=== PATIENT | male | born 1945 | race Two or more races ===

== ENCOUNTER → 2020-04-23 | Outpatient (BNVA) | payer MEDICARE, SELFPAY | PROVIDERS: PCP Internal Medicine; Visit Provider Internal Medicine Cardiovascular Disease | DX: Z01.810 Encounter for preprocedural cardiovascular examination (principal); I25.10 Atherosclerotic heart disease of native coronary artery without angina pectoris; Z79.02 Long term (current) use of antithrombotics/antiplatelets; Z79.82 Long term (current) use of aspirin | CPT/HCPCS: 93000; 93005; 99204 ==

== ENCOUNTER 2020-05-14 15:22 | Emergency (ER) | payer MEDICARE, SELFPAY ==
[2020-05-14 15:45] VITALS: BP 154/74; PULSE 63; RESP 18; TEMP 36.8; O2SAT 94; BMI 22.8
--- NOTE | 2020-05-14 16:17 | ED.GENADULT ---
HPI - General Adult General Chief complaint: General Medical Stated complaint: bleeding from neck Time Seen by Provider: 05/14/20 16:17 Source: patient and family Mode of arrival: ambulatory Limitations: no limitations History of Present Illness HPI narrative: pt had right submandibular gland surgery at [facility] earlier today came here because started oozing at the surgical wound just prior to arrival Related Data Home Medications Medication Instructions Recorded Confirmed aspirin 81 mg tablet,delayed 81 mg PO DAILY 04/23/20 release atorvastatin 80 mg tablet 80 mg PO DAILY 04/23/20 gabapentin 300 mg capsule 300 mg PO DAILY 04/23/20 lisinopril 40 mg tablet 40 mg PO DAILY 04/23/20 metoprolol tartrate 25 mg tablet 12.5 mg PO BID 04/23/20 omeprazole 20 mg capsule,delayed 0 mg PO 04/23/20 release paroxetine HCl 10 mg tablet 10 mg PO DAILY 04/23/20 Previous Rx's Medication Instructions Recorded glycopyrrolate 1 mg tablet 1 mg PO DAILY #30 tab 04/28/20 ibuprofen 600 mg tablet 600 mg PO TID PRN #30 tab 04/28/20 clopidogrel 75 mg tablet 75 mg PO DAILY #90 tab 05/01/20 Allergies Allergy/AdvReac Type Severity Reaction Status Date / Time amlodipine Allergy Unknown Verified 03/10/20 00:00 famotidine Allergy Unknown Verified 03/10/20 00:00 lactose [LACTOSE] Allergy Unknown DIARRHEA Unverified 03/26/20 14:55 metoprolol Allergy Unknown Verified 03/10/20 00:00 Review of Systems Review of Systems: Yes all other systems are reviewed and are negative [facility] Past Medical History Medical History Coronary artery disease Surgical History H/O colonoscopy H/O colonoscopy H/O hernia repair History of coronary artery stent placement History of esophagogastroduodenoscopy (EGD) Hx laparoscopic cholecystectomy Social History Social History Advance Directives: No Advance Directives Information Provided: No Physical Exam Vital Signs: Vital Signs: Last Vital Signs Temp 98.2 F 05/14/20 15:45 Pulse 63 05/14/20 15:45 Resp 18 05/14/20 15:45 BP 154/74 H 05/14/20 15:45 Pulse Ox 94 05/14/20 15:45 Body Mass Index 22.8 Appearance: Alert. Oriented X3. No acute distress. Neck: slight oozing from surgical wound otherwise wound is closed CVS: Normal heart rate and rhythm. Pulses normal. Respiratory: No respiratory distress. Breath sounds normal. Abdomen: Soft and nontender. Skin: Skin warm and dry. Normal skin color. Normal skin turgor. Extremities: No lower extremity edema. Good range of movement Neuro: Oriented X 3. No motor deficit. No sensory deficit. Course Course Course Narrative: 4 interrupted sutures were placed at the oozing surgical wound stop the bleeding which stopped part dressed patient advised to follow-up with his surgeon Procedures Laceration Laceration 1: Site: neck Side (If applicable): right Size (cm): 1 Description: linear Depth: simple, single layer Local Anesthetic: lidocaine 2% Amount of anesthesia used (mL): 1 Skin layer closed with: vicryl Size (cm): 5-0 Number of sutures: 4 Technique: simple, interrupted Discharge Plan Discharge Prescriptions: No Action glycopyrrolate 1 mg tablet 1 mg PO DAILY Qty: 30 RF: 1 ibuprofen 600 mg tablet 600 mg PO TID PRN (Reason: fever or pain) Qty: 30 RF: 0 clopidogrel 75 mg tablet 75 mg PO DAILY Qty: 90 RF: 2 aspirin 81 mg tablet,delayed release (DR/EC) 81 mg PO DAILY RF: 0 omeprazole 20 mg capsule,delayed release(DR/EC) 0 mg PO RF: 0 paroxetine HCl 10 mg tablet 10 mg PO DAILY RF: 0 gabapentin 300 mg capsule 300 mg PO DAILY RF: 0 lisinopril 40 mg tablet 40 mg PO DAILY RF: 0 atorvastatin 80 mg tablet 80 mg PO DAILY RF: 0 metoprolol tartrate 25 mg tablet 12.5 mg PO BID RF: 0
[2020-05-14] MEDS: Lidocaine HCl 2 % MPF 5 ML VIAL INFILTRATI (16:49)
== END 2020-05-14 17:08 | disposition home or self-care (01) ==
PROVIDERS: Emergency Provider Internal Medicine; PCP Internal Medicine
DX: K91.841 Postprocedural hemorrhage of a digestive system organ or structure following other procedure (principal); S11.91XA Laceration without foreign body of unspecified part of neck, initial encounter; M54.2 Cervicalgia; W45.8XXA Other foreign body or object entering through skin, initial encounter; Y93.9 Activity, unspecified; Y92.9 Unspecified place or not applicable; Y99.9 Unspecified external cause status; Z79.899 Other long term (current) drug therapy
CPT/HCPCS: 12001; 99282; 99284

== ENCOUNTER 2020-05-14 23:45 | Emergency (ER) | payer MEDICARE, SELFPAY ==
[2020-05-15 02:05] VITALS: BP 149/71; PULSE 55; RESP 16; TEMP 36.8; O2SAT 98; BMI 23.0
--- NOTE | 2020-05-15 03:29 | ED.MALEGU ---
HPI - Male Genitourinary General Chief complaint: Urogenital-Male Stated complaint: Unable to void Time Seen by Provider: 05/15/20 02:23 Source: patient Mode of arrival: ambulatory Limitations: no limitations History of Present Illness HPI Narrative: This is a 75-year-old male who presents with inability to urinate for approximately 8 hours and states that he has not had any changes in medication dosages or new medications, but states that he underwent a surgical procedure earlier today and received anesthesia for this procedure. Otherwise, he denies any fevers, chills, nausea, vomiting, GI symptoms. Related Data Home Medications Medication Instructions Recorded Confirmed aspirin 81 mg tablet,delayed 81 mg PO DAILY 04/23/20 release atorvastatin 80 mg tablet 80 mg PO DAILY 04/23/20 gabapentin 300 mg capsule 300 mg PO DAILY 04/23/20 lisinopril 40 mg tablet 40 mg PO DAILY 04/23/20 metoprolol tartrate 25 mg tablet 12.5 mg PO BID 04/23/20 omeprazole 20 mg capsule,delayed 0 mg PO 04/23/20 release paroxetine HCl 10 mg tablet 10 mg PO DAILY 04/23/20 Previous Rx's Medication Instructions Recorded glycopyrrolate 1 mg tablet 1 mg PO DAILY #30 tab 04/28/20 ibuprofen 600 mg tablet 600 mg PO TID PRN #30 tab 04/28/20 clopidogrel 75 mg tablet 75 mg PO DAILY #90 tab 05/01/20 Allergies Allergy/AdvReac Type Severity Reaction Status Date / Time amlodipine Allergy Unknown Verified 03/10/20 00:00 famotidine Allergy Unknown Verified 03/10/20 00:00 lactose [LACTOSE] Allergy Unknown DIARRHEA Unverified 03/26/20 14:55 metoprolol Allergy Unknown Verified 03/10/20 00:00 Review of Systems Review of Systems: Pertinent positives and negatives as stated in HPI 10 point review of systems is otherwise negative. [facility] Past Medical History Source: nursing notes reviewed Medical History Coronary artery disease Surgical History H/O colonoscopy H/O colonoscopy H/O hernia repair History of coronary artery stent placement History of esophagogastroduodenoscopy (EGD) Hx laparoscopic cholecystectomy Social History Social History Alcohol intake: never Smoking Status: Never smoker Use of substances other than those prescribed or required for medical reasons: No Advance Directives: No Advance Directives Information Provided: No Physical Exam Vital Signs: Vital Signs: Last Vital Signs Temp 98.3 F 05/15/20 02:05 Pulse 55 05/15/20 02:05 Resp 16 05/15/20 02:05 BP 149/71 H 05/15/20 02:05 Pulse Ox 98 05/15/20 02:05 Body Mass Index 23.0 VITAL SIGNS: Reviewed. GENERAL: Well developed, well nourished, in no acute distress. HEAD: Normocephalic/atraumatic, EYES: PERRLA, EOMI intact without pain, no nystagmus/pallor/icterus noted EARS: Ext canals without abnormality, TMs non-bulging and non-erythematous NOSE: Nares patent bilateral OROPHARYNX: no oral lesions noted, posterior pharynx clear and non-erythematous without noted tonsillar enlargement/erythema/exudates NECK: Supple, no adenopathy LUNGS: Normal breath sounds. No adventitious sounds or accessory muscle use. SpO2<98> CARDIOVASCULAR: Regular rate and rhythm without noted murmurs, no JVD or lower extremity edema. ABDOMEN: Soft, non-tender, non-distended with bowel sounds. No rigidity. No guarding. No palpable masses or hernias noted MUSCULOSKELETAL: No tenderness, deformities, or effusions noted on gross inspection. EXTREMITIES: No cyanosis, clubbing or edema. SKIN: Inspection of the skin reveals no rashes, ulcerations, jaundice, pallor, or petechiae. NEUROLOGIC: Alert and oriented x 4. Strength and sensation to light touch were grossly intact x 4. Course Course Course Narrative: This is a 75-year-old male with history and clinical presentation consistent with likely anesthesia induced urinary retention and discussed with the patient at length at bedside regarding a single catheterization to remove the urine and check for infection versus placing a Wynne catheter and having him follow-up with urology. Patient states that he prefers to have a single draining of his bladder and feels confident that he will be able to regain the ability to urinate within the next day. Bladder scan demonstrates more than 800 cc within the bladder and patient was straight cathed and a urinalysis was obtained. Discharge Plan Discharge Clinical Impression: Acute urinary retention Patient Disposition: Home, Self-Care Instructions: Urinary Retention in Men (ED) Additional Instructions: Hoy se le evalu? la retenci?n urinaria en el departamento de emergencias y se considera que esto es secundario a los anest?sicos que recibi? al principio del d?a para montalvo procedimiento. Discutimos en detalle las opciones para juana ?raul extracci?n de orina o la colocaci?n de un cat?ter de Wynne con seguimiento con Urolog?a. Usted eligi? tener un solo episodio de extracci?n de orina y se le alberto indicado que alireza un seguimiento con nosotros si esto ocurre dentro de las pr?ximas 24 horas o si tiene fiebre o escalofr?os. Prescriptions: No Action glycopyrrolate 1 mg tablet 1 mg PO DAILY Qty: 30 RF: 1 ibuprofen 600 mg tablet 600 mg PO TID PRN (Reason: fever or pain) Qty: 30 RF: 0 clopidogrel 75 mg tablet 75 mg PO DAILY Qty: 90 RF: 2 aspirin 81 mg tablet,delayed release (DR/EC) 81 mg PO DAILY RF: 0 omeprazole 20 mg capsule,delayed release(DR/EC) 0 mg PO RF: 0 paroxetine HCl 10 mg tablet 10 mg PO DAILY RF: 0 gabapentin 300 mg capsule 300 mg PO DAILY RF: 0 lisinopril 40 mg tablet 40 mg PO DAILY RF: 0 atorvastatin 80 mg tablet 80 mg PO DAILY RF: 0 metoprolol tartrate 25 mg tablet 12.5 mg PO BID RF: 0 Referrals: Po,Chemo Bonilla MD [Primary Care Provider] - 2 days ( Acute urinary retention felt to be secondary to anesthetics received during surgical procedure today 05/14) Print Language: Ukrainian
== END 2020-05-15 03:58 | disposition home or self-care (01) ==
PROVIDERS: Emergency Provider Student in an Organized Health Care Education/Training Program; PCP Internal Medicine
DX: R33.9 Retention of urine, unspecified (principal); Z79.899 Other long term (current) drug therapy
CPT/HCPCS: 51798; 99283; 99284

== ENCOUNTER 2020-05-28 09:12 | Outpatient (REF) | payer MEDICARE, SELFPAY | END 2020-05-28 09:13 | disposition home or self-care (01) | LOC: HO.LAB 09:12 | PROVIDERS: PCP Internal Medicine; Visit Provider Internal Medicine | DX: Z20.828 Contact with and (suspected) exposure to other viral communicable diseases (principal) | CPT/HCPCS: C9803; U0003 ==

== ENCOUNTER 2020-06-16 10:50 | Emergency (ER) | payer MEDICARE, SELFPAY ==
[2020-06-16 11:11] VITALS: BP 149/56; PULSE 63; RESP 16; TEMP 37.2; O2SAT 98; BMI 21.5
--- NOTE | 2020-06-16 11:20 | CT_ITS ---
EXAMINATION: CT SOFT TISSUE NECK WITH CONTRAST CLINICAL INFORMATION: Feeling of mass in throat. Difficulty swallowing. COMPARISON: No relevant prior imaging. TECHNIQUE: Following the intravenous administration of 60 mL of Omnipaque 350 intravenous contrast, helical imaging was performed in the axial plane with generation of coronal and sagittal reformatted images. This CT examination was performed using dose optimization techniques as appropriate, variously including the following: *Automated exposure control *Adjustment of mA and/or kV according to patient size (this includes techniques or standardized protocols for targeted exams where dose is matched to indication/reason for exam; i.e. extremities or head) *Use of iterative reconstruction technique DLP: 461 mGy-cm FINDINGS: The right submandibular gland is absent suggesting a history of a surgical resection. Subtle asymmetric fatty changes within the right parotid gland. The left parotid gland and the left submandibular gland are unremarkable. Traveling Storekeeper spaces are symmetric. Parapharyngeal and retromaxillary fat is preserved. The pharyngeal mucosal spaces are symmetric. The tongue base and epiglottis are normal. Preepiglottic fat is preserved. Glottic and subglottic airways are grossly patent. The thyroid gland is normal and the remainder of the visualized visceral soft tissues are normal. There are no pathologically enlarged cervical lymph nodes. No mediastinal or axillary adenopathy is visualized within the [id number] of this examination. There is pleural-parenchymal scarring at the apices of both lungs. Scattered atheromatous calcification involves the aortic arch apex. Origins of the major aortic branches are grossly patent. Partially calcified atheromatous plaque involves both carotid bifurcations. Although this examination was not specifically tailored to evaluate vascular anatomy there is approximately 25% stenosis at the origins of both internal carotid arteries. Internal jugular veins fill symmetrically. There is no acute osseous finding. Specifically no worrisome lytic or blastic osseous lesion. Grossly no evidence of canal compromise. The skull base is intact. Limited visualization of the posterior fossa structures reveals hyperenhancing 1.7 cm cerebellopontine angle cistern mass on the right side that coincides with the known history of a vestibular schwannoma. CT/CT soft tissue neck w con IMPRESSION: There is no abnormal finding to provide an explanation for the patient's clinical symptoms. Specifically no discrete enhancing soft tissue mass. No pathologically enlarged cervical lymph nodes. The laryngeal anatomy is somewhat limited on this examination due to patient motion at the time of imaging. There is partially calcified atheromatous plaque involving both carotid bifurcations. Although this examination was not specifically tailored to evaluate vascular anatomy there appears to be 25% stenosis at the origins of both internal carotid arteries. A known right-sided vestibular schwannoma is partially included within the [id number] of this examination.
--- NOTE | 2020-06-16 11:20 | CT_ITS ---
EXAMINATION: CT HEAD WITHOUT CONTRAST CLINICAL INFORMATION: Cannot swallow for one month. COMPARISON: MRI and CT from 11/21/2019. TECHNIQUE: Contiguous axial imaging was performed from the skull base to vertex without intravenous contrast. This CT examination was performed using dose optimization techniques as appropriate, variously including the following: * Automated exposure control * Adjustment of mA and/or kV according to patient size (this includes techniques or standardized protocols for targeted exams where dose is matched to indication/reason for exam; i.e. extremities or head) Use of iterative reconstruction technique DLP: 782 mGy-cm. FINDINGS: There is no evidence of acute intracranial hemorrhage or territorial infarction. No abnormal mass effect or midline shift is seen. Faustin to white matter differentiation is well preserved. No extra-axial fluid collections are identified. No hydrocephalus. Proportional prominence of the ventricles and sulcal spaces is consistent with mild volume loss. Redemonstration of the mass at the right cerebellopontine angle. This is unchanged in appearance from prior. The osseous structures and soft tissues are normal. The mastoid air cells and visualized portions of the paranasal sinuses are well aerated. CT/CT head/brain wo con IMPRESSION: No acute intracranial pathology. Unchanged appearance of the mass at the right cerebellopontine angle.
--- NOTE | 2020-06-16 11:28 | ED.GENADULT ---
HPI - General Adult General Chief complaint: Weakness Stated complaint: weak and nausea Time Seen by Provider: 06/16/20 11:20 Source: patient and old records reviewed Mode of arrival: ambulatory Limitations: no limitations History of Present Illness HPI narrative: states he underwent R submandibular salivary gland removal in May for excessive salivation states the procedure didn't help, he was referred to [place] but doesn't want to go, came here for second opinion - I did tell him we would do not have specialists to treat his issue here but will do our best to obtain images and hydrate him. MD complaint: states he cannot eat and not swallow well, too much saliva Onset (ago): month(s) (1) Location: mouth Radiation: non-radiation Severity: moderate Quality: dull Relieving factors: none Exacerbating factors: other (swallowing) Associated symptoms: loss of appetite and malaise Related Data Home Medications Medication Instructions Recorded Confirmed aspirin 81 mg tablet,delayed 81 mg PO DAILY 04/23/20 06/11/20 release atorvastatin 80 mg tablet 80 mg PO DAILY 04/23/20 06/11/20 gabapentin 300 mg capsule 300 mg PO DAILY 04/23/20 06/11/20 lisinopril 40 mg tablet 40 mg PO DAILY 04/23/20 06/11/20 metoprolol tartrate 25 mg tablet 12.5 mg PO BID 04/23/20 06/11/20 omeprazole 20 mg capsule,delayed 0 mg PO 04/23/20 06/11/20 release paroxetine HCl 10 mg tablet 10 mg PO DAILY 04/23/20 06/11/20 Previous Rx's Medication Instructions Recorded ibuprofen 600 mg tablet 600 mg PO TID PRN #30 tab 04/28/20 clopidogrel 75 mg tablet 75 mg PO DAILY #90 tab 05/01/20 glycopyrrolate 1 mg tablet 1 mg PO DAILY #30 tab 05/26/20 Allergies Allergy/AdvReac Type Severity Reaction Status Date / Time amlodipine Allergy Unknown Verified 03/10/20 00:00 famotidine Allergy Unknown Verified 03/10/20 00:00 lactose [LACTOSE] Allergy Unknown DIARRHEA Unverified 03/26/20 14:55 metoprolol Allergy Unknown Verified 03/10/20 00:00 Review of Systems Review of Systems: Constitutional : No Weight loss, No Fever, No Chills, No Fatigue, pos Malaise ENT/Mouth : No sore throat, No Rhinorrhea, diff swallowing, excessive saliva Eyes: No Eye Pain, No Swelling, No Redness Cardiovascular : No Chest Pain, No SOB, No Dyspnea on Exertion, No Orthopnea, No Edema, No Palpitations Respiratory : No Cough, No Sputum, No Wheezing Gastrointestinal : No Nausea, No Vomiting, No Diarrhea, No Constipation, No abdominal Pain, No Hematochezia, No Melena Genitourinary : No Dysuria, No Urinary Frequency, No Hematuria, Musculoskeletal : No joint pain, No Myalgias, No Joint Swelling Skin : No Skin Lesions, No rash Neuro : No Weakness, No Numbness, No Dizziness, No Headache All other systems reviewed and are negative [facility] Past Medical History Attestation statement: The following information was validated with the patient. Medical History Anxiety and depression Ascending aorta dilatation BPH (benign prostatic hyperplasia) Compression fracture of T4 vertebra Coronary artery disease CPA (cerebellopontine angle) tumor GERD (gastroesophageal reflux disease) H. pylori duodenitis Hypercholesterolemia Hypertension Impaired fasting glucose Peripheral vascular disease Post herpetic neuralgia Subdural bleeding Trigeminal neuralgia Surgical History H/O colonoscopy H/O colonoscopy H/O hernia repair History of coronary artery stent placement History of esophagogastroduodenoscopy (EGD) Hx laparoscopic cholecystectomy Social History Social History Alcohol intake: never Smoking Status: Never smoker Advance Directives: No Advance Directives Information Provided: Yes Physical Exam Vital Signs: Vital Signs: Last Vital Signs Temp 99 F 06/16/20 11:11 Pulse 63 06/16/20 11:11 Resp 16 06/16/20 11:11 BP 149/56 H 06/16/20 11:11 Pulse Ox 98 06/16/20 11:11 Body Mass Index 21.5 Appearance: Alert. Oriented X3. No acute distress. Anxious Eyes: Pupils equal, round and reactive to light. ENT: Pharynx normal. R sided submandibular area well healed incision Neck: Normal inspection. Neck supple. CVS: Normal heart rate and rhythm. Pulses normal. Respiratory: No respiratory distress. Breath sounds normal. Abdomen: Soft and non-tender. Skin: Skin warm and dry. Normal skin color. Normal skin turgor. Extremities: No lower extremity edema. No calf ttp Neuro: Oriented X 3. No motor deficit. No sensory deficit. Course Course Course Narrative: no acute findings on CT scan no mass or new growth stable for DC Medical Decision Making MDM Narrative Medical decision making narrative: 75 yo male with recent salivary gland removal in May - it did not change his excessive saliva and that he was referred to [place] but doesn't want to go, he is aware we do not have specialists at [place] to assist him but I will obtain CT scans to look for an actual mass as well as hydrate him, I discussed possibly [facility] with him if he will not go to [place] ( was treated there and he doesn't want to go). Lab Data Result diagrams: 06/16/20 11:58 12 11:58 Labs: Lab Results 06/16/20 06/16/20 06/16/20 Range/Units 11:58 11:58 11:58 WBC 6.6 (4.8-10.8) X10*3/uL RBC 4.99 (4.60-5.80) X10*6/uL Hgb 14.6 (14.0-18.0) g/dl Hct 43.0 (42-52) % MCV 86.2 (80-98) fL MCH 29.3 (27.0-33.0) pg MCHC 34.0 (31.0-36.0) g/dl RDW 15.3 (11.0-16.0) % Plt Count 190 (160-400) X10*3/uL MPV 9.5 (9.4-12.4) fL Immature Gran % (Auto) 0.5 H (0.0-0.4) % Neut % (Auto) 73.4 H (45-73) % Lymph % (Auto) 13.4 L (20-40) % [place] % (Auto) 12.5 H (2-11) % Eos % (Auto) 0.0 (0-4) % Baso % (Auto) 0.2 (0-2) % Lymph # (Auto) 0.9 L (1.2-4.9) X10*3/uL [place] # (Auto) 0.8 (0.1-1.2) X10*3/uL Eos # (Auto) 0.0 (0.0-0.4) X10*3/uL Baso # (Auto) 0.0 (0.0-0.2) X10*3/uL Abs Immat Gran (auto) 0.03 (0.00-0.03) X10*3/uL Absolute Neuts (auto) 4.8 (2.0-8.3) X10*3/uL Absolute Nucleated RBC 0.000 (0.0-0.012) X10*3/uL Nucleated RBC % (auto) 0.0 (0.0-0.2) /100WBC Hold Blue Top SEE NOTE Sodium 138 (135-145) mmol/L Potassium 3.8 (3.3-5.1) mmol/l Chloride 102 (96-108) mmol/L Carbon Dioxide 27 (22-29) mmol/L Anion Gap 13 (12-20) BUN 20 H (9-16) mg/dL Creatinine 0.70 (0.5-1.4) mg/dL Estim Creat Clear Calc 70.0 Estimated GFR > 60 Random Glucose 107 (60-115) mg/dL Calcium 8.1 L (8.4-10.2) mg/dL Discharge Plan Discharge Clinical Impression: Dysphagia Patient Disposition: Home, Self-Care Additional Instructions: return to ED for any worsening symptoms or concerns we did not find any new masses on the CT scan or cause of your symptoms, there was some small occlusion of your carotid arteries that can be followed as outpatient by your doctor, you are not dehydrated please follow up with the specialists in [place] Prescriptions: No Action ibuprofen 600 mg tablet 600 mg PO TID PRN (Reason: fever or pain) Qty: 30 RF: 0 clopidogrel 75 mg tablet 75 mg PO DAILY Qty: 90 RF: 2 glycopyrrolate 1 mg tablet 1 mg PO DAILY Qty: 30 RF: 1 aspirin 81 mg tablet,delayed release (DR/EC) 81 mg PO DAILY RF: 0 omeprazole 20 mg capsule,delayed release(DR/EC) 0 mg PO RF: 0 paroxetine HCl 10 mg tablet 10 mg PO DAILY RF: 0 gabapentin 300 mg capsule 300 mg PO DAILY RF: 0 lisinopril 40 mg tablet 40 mg PO DAILY RF: 0 atorvastatin 80 mg tablet 80 mg PO DAILY RF: 0 metoprolol tartrate 25 mg tablet 12.5 mg PO BID RF: 0 Referrals: Po,Chemo Bonilla MD [Primary Care Provider] - 2 days
[2020-06-16 12:03] LABS: MANUAL DIFF FLAG NO
[2020-06-16 12:06] LABS: Basophils Percent Auto 0.2 % (0-2); Hemoglobin 14.6 g/dl (14.0-18.0); Imm Gran Abs Auto 0.03 X10*3/uL (0.00-0.03); Imm Gran Pct Auto 0.5 % (0.0-0.4); Lymphocytes Absolute Auto 0.9 X10*3/uL (1.2-4.9); Lymphocytes Percent Auto 13.4 % (20-40); Mean Corpuscular Hemoglobin 29.3 pg (27.0-33.0); Mean Corpuscular Volume 86.2 fL (80-98); Mean Platelet Volume 9.5 fL (9.4-12.4); Monocytes Absolute Auto 0.8 X10*3/uL (0.1-1.2); Monocytes Percent Auto 12.5 % (2-11); Neutrophils Absolute Auto 4.8 X10*3/uL (2.0-8.3); Neutrophils Percent Auto 73.4 % (45-73); Platelet Count 190 X10*3/uL (160-400); Red Blood Count 4.99 X10*6/uL (4.60-5.80); Red Cell Distribution Width 15.3 % (11.0-16.0); White Blood Count 6.6 X10*3/uL (4.8-10.8)
[2020-06-16 12:30] LABS: Anion Gap 13 (12-20); Blood Urea Nitrogen 20 mg/dL (9-16); Calcium 8.1 mg/dL (8.4-10.2); Carbon Dioxide 27 mmol/L (22-29); Chloride 102 mmol/L (96-108); Estimated Glomerular Filt Rate > 60; Glucose Random 107 mg/dL (60-115); Potassium 3.8 mmol/l (3.3-5.1); Sodium 138 mmol/L (135-145)
[2020-06-16] MEDS: 0.9 % Sodium Chloride 1,000 ML 999 ML IVCONT (12:46)
[2020-06-16] MEDS: iohexoL 350 MG/ML 100 ML INFUS..BTL 60 ML IV (13:11)
[2020-06-16 14:40] VITALS: BP 149/70; PULSE 66; RESP 14
[2020-06-16 14:41] LABS: Alanine Aminotransferase 37 U/L (0-40); Albumin Level 3.6 g/dL (3.5-5.0); Alkaline Phosphatase 204 U/L (39-117); Aspartate Amino Transferase 72 U/L (5-37); Bilirubin Direct 0.4 mg/dL (0.0-0.5); Bilirubin Total 1.1 mg/dL (0.0-1.0); Magnesium 1.9 mg/dL (1.6-2.6); Total Protein 6.2 g/dL (6.5-8.0)
== END 2020-06-16 14:55 | disposition home or self-care (01) ==
PROVIDERS: Emergency Provider Emergency Medicine; PCP Internal Medicine
DX: R13.10 Dysphagia, unspecified (principal); R53.1 Weakness; I25.10 Atherosclerotic heart disease of native coronary artery without angina pectoris; Z79.899 Other long term (current) drug therapy
CPT/HCPCS: 36415; 70450; 70491; 80048; 80076; 83735; 85025; 96360; 99283; 99284; Q9967

== ENCOUNTER 2020-06-22 14:04 | Outpatient (REF) | payer MEDICARE, SELFPAY | END 2020-06-22 14:05 | disposition home or self-care (01) | LOC: HO.LAB 14:04 | PROVIDERS: Visit Provider Internal Medicine | DX: Z20.828 Contact with and (suspected) exposure to other viral communicable diseases (principal) | CPT/HCPCS: C9803; U0003 ==

== ENCOUNTER 2020-07-27 09:52 | Outpatient (REF) | payer MEDICARE, SELFPAY | END 2020-07-27 09:53 | disposition home or self-care (01) | LOC: HO.LAB 09:52 | PROVIDERS: Visit Provider Internal Medicine | DX: Z20.822 Contact with and (suspected) exposure to COVID-19 (principal) | CPT/HCPCS: 36415; C9803; U0003 ==

== ENCOUNTER 2020-09-01 13:27 | Outpatient (REF) | payer MEDICARE, SELFPAY | END 2020-09-01 13:28 | disposition home or self-care (01) | LOC: HO.LAB 13:27 | PROVIDERS: PCP Internal Medicine; Visit Provider Internal Medicine | DX: Z20.822 Contact with and (suspected) exposure to COVID-19 (principal) | CPT/HCPCS: 36415; C9803; U0003; U0005 ==

== ENCOUNTER 2020-09-14 13:21 | Outpatient (REF) | payer MEDICARE, SELFPAY ==
[2020-09-14 14:14] LABS: MANUAL DIFF FLAG NO
[2020-09-14 14:19] LABS: Basophils Absolute Auto 0.1 X10*3/uL (0.0-0.2); Basophils Percent Auto 0.7 % (0-2); Eosinophils Absolute Auto 0.2 X10*3/uL (0.0-0.4); Eosinophils Percent Auto 2.4 % (0-4); Hemoglobin 15.6 g/dl (14.0-18.0); Imm Gran Abs Auto 0.04 X10*3/uL (0.00-0.03); Imm Gran Pct Auto 0.5 % (0.0-0.4); Lymphocytes Absolute Auto 2.6 X10*3/uL (1.2-4.9); Mean Corpuscular HGB Conc 33.2 g/dl (31.0-36.0); Mean Corpuscular Volume 90.4 fL (80-98); Mean Platelet Volume 9.5 fL (9.4-12.4); Monocytes Absolute Auto 1.2 X10*3/uL (0.1-1.2); Monocytes Percent Auto 14.4 % (2-11); Neutrophils Absolute Auto 4.5 X10*3/uL (2.0-8.3); Platelet Count 310 X10*3/uL (160-400); Red Cell Distribution Width 15.7 % (11.0-16.0); White Blood Count 8.6 X10*3/uL (4.8-10.8)
[2020-09-14 14:55] LABS: Alanine Aminotransferase 17 U/L (0-40); Albumin Level 4.4 g/dL (3.5-5.0); Alkaline Phosphatase 138 U/L (39-117); Anion Gap 12 (12-20); Aspartate Amino Transferase 23 U/L (5-37); Bilirubin Total 0.7 mg/dL (0.0-1.0); Blood Urea Nitrogen 13 mg/dL (9-16); Calcium 9.5 mg/dL (8.4-10.2); Carbon Dioxide 31 mmol/L (22-29); Chloride 105 mmol/L (96-108); Estimated Glomerular Filt Rate > 60; Glucose Random 81 mg/dL (60-115); Magnesium 2.1 mg/dL (1.6-2.6); Phosphorus 2.5 mg/dL (2.7-4.5); Potassium 4.5 mmol/L (3.3-5.1); Sodium 143 mmol/L (135-145); Total Protein 7.4 g/dL (6.5-8.0)
[2020-09-14 15:16] LABS: Free T4 (Free Thyroxine) 0.77 ng/dL (0.71-1.85); Thyroid Stimulating Hormone 1.06 uIU/mL (0.32-4.0)
[2020-09-15 04:32] LABS: HBS Num1 0.54 mIU/mL (0-7.99); HBc Num1 0.12 S/CO (0.00-0.79); Hepatitis B Core Antibody Nonreactive (Nonreactive); ~Hepatitis B Surface Antibody NONREACTIVE (Nonreactive)
[2020-09-15 04:42] LABS: HBsAGNum1 0.13 S/CO (0.00-0.99); Hepatitis B Surface Antigen Negative (Negative); ~Hepatitis C Antibody Nonreactive (Nonreactive)
== END 2020-09-14 13:22 | disposition home or self-care (01) ==
LOC: HO.LAB 13:21
PROVIDERS: PCP Internal Medicine; Visit Provider Internal Medicine
DX: M62.838 Other muscle spasm (principal); R94.5 Abnormal results of liver function studies
CPT/HCPCS: 36415; 80053; 83735; 84100; 84439; 84443; 85025; 86704; 86706; 86803; 87340

== ENCOUNTER 2020-09-16 13:56 | Outpatient (REF) | payer MEDICARE, SELFPAY ==
--- NOTE | ~2020-09-16 | US_ITS ---
EXAMINATION: US ABDOMEN LIMITED CLINICAL INFORMATION: Abnormal LFTs. COMPARISON: CT abdomen and pelvis 06/08/2011. Ultrasound abdomen 05/24/2009. TECHNIQUE: Real-time imaging of the right upper quadrant abdominal viscera. FINDINGS: PANCREAS: Normal. LIVER: The liver is normal in size. The liver contour is normal. Parenchymal echogenicity is normal. No focal hepatic lesion. There is no intrahepatic biliary duct dilatation seen. GALLBLADDER: Surgically absent. COMMON BILE DUCT: Normal in caliber measuring 0.6 cm in diameter. RIGHT KIDNEY: There is anechoic cyst in the lower pole measuring 1.2 x 1.2 x 1.4 cm. No hydronephrosis or renal calculi. The kidney measures 8.9 cm in maximum dimension. FREE FLUID: None. US/US abdomen limited IMPRESSION: Anechoic cyst lower pole right kidney measuring 1.2 x 1.2 x 1.4 cm. Unremarkable ultrasound of the pancreas, liver and common bile duct.
== END 2020-09-16 13:57 | disposition home or self-care (01) ==
LOC: HO.US 13:56
PROVIDERS: PCP Internal Medicine; Visit Provider Internal Medicine
DX: R79.89 Other specified abnormal findings of blood chemistry (principal); R94.5 Abnormal results of liver function studies
CPT/HCPCS: 76705

== ENCOUNTER 2021-02-04 07:57 | Outpatient (REF) | payer MEDICARE, SELFPAY ==
[2021-02-04 08:35] LABS: MANUAL DIFF FLAG NO
[2021-02-04 08:39] LABS: Basophils Absolute Auto 0.1 X10*3/uL (0.0-0.2); Basophils Percent Auto 0.9 % (0-2); Eosinophils Absolute Auto 0.4 X10*3/uL (0.0-0.4); Eosinophils Percent Auto 4.5 % (0-4); Hematocrit 47.1 % (42-52); Imm Gran Abs Auto 0.05 X10*3/uL (0.00-0.03); Imm Gran Pct Auto 0.6 % (0.0-0.4); Lymphocytes Absolute Auto 2.4 X10*3/uL (1.2-4.9); Lymphocytes Percent Auto 30.2 % (20-40); Mean Corpuscular Hemoglobin 30.1 pg (27.0-33.0); Mean Corpuscular Volume 88.7 fL (80-98); Mean Platelet Volume 9.1 fL (9.4-12.4); Monocytes Percent Auto 13.1 % (2-11); Neutrophils Absolute Auto 3.9 X10*3/uL (2.0-8.3); Neutrophils Percent Auto 50.7 % (45-73); Platelet Count 327 X10*3/uL (160-400); Red Blood Count 5.31 X10*6/uL (4.60-5.80); Red Cell Distribution Width 14.5 % (11.0-16.0); White Blood Count 7.8 X10*3/uL (4.8-10.8)
[2021-02-04 08:56] LABS: Alanine Aminotransferase 16 U/L (0-40); Albumin Level 4.2 g/dL (3.5-5.0); Alkaline Phosphatase 147 U/L (39-117); Anion Gap 13 (12-20); Aspartate Amino Transferase 22 U/L (5-37); Bilirubin Total 1.1 mg/dL (0.0-1.0); Blood Urea Nitrogen 13 mg/dL (9-16); Calcium 9.9 mg/dL (8.4-10.2); Carbon Dioxide 28 mmol/L (22-29); Chloride 105 mmol/L (96-108); Cholesterol 135 mg/dL; Estimated Glomerular Filt Rate > 60; Glucose Random 111 mg/dL (60-115); HDL Cholesterol 27 mg/dL; LDL Cholesterol Calculated 63 mg/dl; Potassium 4.7 mmol/L (3.3-5.1); Sodium 141 mmol/L (135-145); Total Protein 7.1 g/dL (6.5-8.0); Triglycerides 227 mg/dL
[2021-02-04 09:19] LABS: Free T4 (Free Thyroxine) 0.86 ng/dL (0.71-1.85)
[2021-02-04 09:42] LABS: Folate 3.1 ng/mL (> or = 4.0); Vitamin B12 516 pg/mL (200-900)
== END 2021-02-04 07:58 | disposition home or self-care (01) ==
LOC: HO.LAB 07:57
PROVIDERS: PCP Internal Medicine; Visit Provider Internal Medicine
DX: I25.10 Atherosclerotic heart disease of native coronary artery without angina pectoris (principal); E78.00 Pure hypercholesterolemia, unspecified; I10 Essential (primary) hypertension
CPT/HCPCS: 36415; 80053; 80061; 82607; 82746; 84439; 84443; 85025

== ENCOUNTER 2021-04-06 10:50 | Emergency (ER) | payer MEDICARE, SELFPAY ==
--- NOTE | ~2021-04-06 | CT_ITS ---
EXAMINATION: CT ANGIOGRAM OF THE CHEST WITH AND WITHOUT CONTRAST (CT PULMONARY ANGIOGRAM FOR PE) CLINICAL INFORMATION: Reason for Exam Chest pain and elevated D-dimer rule out PE. COMPARISON: Previous chest CTA February 2015 and chest x-ray earlier the same day TECHNIQUE: Prior to contrast administration, noncontrast localization images were obtained. Subsequently, multidetector volumetric imaging was performed from the thoracic inlet to below the diaphragms following the administration of 54 mL Omnipaque 350 intravenous contrast. No contrast reaction reported Sagittal, coronal, and MIP oblique sagittal reformatted images were obtained on the CT workstation, uploaded to PACS, and reviewed. This CT examination was performed using dose optimization techniques as appropriate, variously including the following: *Automated exposure control *Adjustment of mA and/or kV according to patient size (this includes techniques or standardized protocols for targeted exams where dose is matched to indication/reason for exam; i.e. extremities or head) *Use of iterative reconstruction technique Total exam dose-length product 212 mGy-cm FINDINGS: QUALITY OF STUDY/CONTRAST BOLUS: Satisfactory. PULMONARY ARTERIES: No central or segmental pulmonary emboli. THORACIC AORTA: No aneurysm or dissection. There is evidence of atherosclerotic disease with some wall thickening and wall calcification of the descending thoracic aorta. LUNG: No focal consolidation, nodules or masses. PLEURA: No pleural effusion or pneumothorax. MEDIASTINUM: The heart is upper normal in size. There is mild coronary artery calcification.. No pericardial effusion. No hilar or mediastinal lymphadenopathy. No evidence of septal bowing or right heart strain. CHEST WALL/AXILLA: No axillary or internal mammary lymphadenopathy. OSSEOUS STRUCTURES: No acute or suspicious osseous abnormality. UPPER ABDOMEN: The gallbladder is been removed. There is a small calcification in the right lobe of the liver. No reflux of contrast into the hepatic veins to suggest elevated right heart pressures. CT/CT angio chest PE protocol IMPRESSION: No evidence of pulmonary embolism. VTE: negative
--- NOTE | ~2021-04-06 | XR_ITS ---
EXAMINATION: XR CHEST CLINICAL INFORMATION: Chest pain COMPARISON: Chest radiographs 10/28/2018, 09/02/2016 TECHNIQUE: Portable upright AP view of the chest was obtained. FINDINGS: There is no pneumothorax or pleural reaction. The lungs are clear. There is no infiltrate or groundglass opacity or effusion. The heart is normal in size. The vascularity is normal. The costophrenic sulci are clear. The hilar and mediastinal contours and visualized bony structures are unremarkable. XR/XR chest 1V IMPRESSION: Unremarkable examination.
[2021-04-06 10:58] VITALS: BP 168/73; PULSE 60; RESP 18; TEMP 37.1; O2SAT 97; BMI 22.6
[2021-04-06 11:31] VITALS: BP 175/98; PULSE 60; RESP 14; O2SAT 97
--- NOTE | 2021-04-06 11:50 | ECG_ITS ---
Test Reason : CP Blood Pressure : / mmHG Vent. Rate : 059 BPM Atrial Rate : 059 BPM P-R Int : 158 ms QRS Dur : 076 ms QT Int : 410 ms P-R-T Axes : 043 -06 027 degrees QTc Int : 405 ms Sinus bradycardia Otherwise normal ECG When compared with ECG of 06-APR-2020 15:49, No significant change was found Referred By: Mina Lea Electronically Signed By:JACQUI MANCIA
--- NOTE | 2021-04-06 11:52 | ED_ITS ---
HPI - Chest Pain General Chief Complaint: Chest Pain Stated Complaint: chest pain Time Seen by Provider: 04/06/21 11:49 Source: patient Mode of arrival: ambulatory Limitations: no limitations History of Present Illness HPI narrative: 76 years old male came in for evaluation of chest pain. Pain started a month ago, localized to the mid chest, no radiation, pain is intermittent, moderate 5/10, pain is triggered with food or anything he swallow even small pill medication can cause the pain feels like it is stuck in the mid of his chest, also coughing can trigger the pain, but pain is not exertional, not eating can relieve the pain. No recent weight loss. Related Data Previous Rx's Medication Instructions Recorded clopidogrel 75 mg tablet 75 mg PO DAILY #90 tab 05/01/20 aspirin 81 mg tablet,delayed 81 mg PO DAILY #90 tab 07/17/20 release gabapentin 300 mg capsule 300 mg PO DAILY #90 cap 10/08/20 metoprolol tartrate 25 mg tablet 12.5 mg PO BID 90 Days #90 tab 11/16/20 glycopyrrolate 1 mg tablet 1 mg PO DAILY 90 Days #90 tab 12/25/20 omeprazole 20 mg capsule,delayed 20 mg PO BID #180 cap 01/14/21 release ibuprofen 600 mg tablet 600 mg PO TID PRN #30 tab 03/25/21 atorvastatin 80 mg tablet 80 mg PO DAILY #90 tab 03/26/21 lisinopril 40 mg tablet 40 mg PO DAILY #90 tab 03/26/21 omeprazole magnesium 20 mg 20 mg PO BID #30 tab 04/06/21 tablet,delayed release (Prilosec OTC) Allergies Allergy/AdvReac Type Severity Reaction Status Date / Time amlodipine Allergy Unknown Unknown Verified 04/06/21 10:58 famotidine Allergy Unknown Unknown Verified 04/06/21 10:58 lactose [LACTOSE] Allergy Unknown DIARRHEA Verified 04/06/21 10:58 metoprolol Allergy Unknown Unknown Verified 04/06/21 10:58 Review of Systems Review of Systems: All other systems are reviewed and are negative Constitutional: Reports as per HPI and Reports no additional constitutional complaints Eyes: Reports as per HPI and Reports no additional eye complaints Reports system reviewed and no additional complaints, except as documented Cardiovascular: Reports as per HPI and Reports no additional cardiovascular complaints Respiratory: Reports as per HPI and Reports no additional respiratory complaints Gastrointestinal: Reports as per HPI and Reports no additional gastrointestinal complaints Genitourinary: Reports no additional female genitourinary complaints Musculoskeletal: Reports no additional musculoskeletal complaints Skin/Breast: Reports system reviewed and no additional complaints, except as docu Psychiatric: Reports no additional psychiatric complaints Endocrine: Reports no additional endocrine complaints Hematologic/Lymphatic: Reports no additional hematologic/lymphatic complaints Allergic/Immunologic: Reports no additional allergic/immunologic complaints Reports system reviewed and no additional complaints, except as documented and Reports Abnormal speech present. [facility] Past Medical History Medical History Anxiety and depression Ascending aorta dilatation BPH (benign prostatic hyperplasia) Compression fracture of T4 vertebra Coronary artery disease CPA (cerebellopontine angle) tumor GERD (gastroesophageal reflux disease) H. pylori duodenitis Hypercholesterolemia Hypertension Impaired fasting glucose Peripheral vascular disease Post herpetic neuralgia Subdural bleeding Trigeminal neuralgia Surgical History H/O colonoscopy H/O colonoscopy H/O hernia repair History of ankle surgery History of coronary artery stent placement History of esophagogastroduodenoscopy (EGD) Hx laparoscopic cholecystectomy Family History Family History Father No problems noted. Mother No problems noted. Brother No problems noted. Sister No problems noted. Son No problems noted. Daughter No problems noted. Social History Social History Housing: Apartment Alcohol intake: never Patient Tobacco Use Status: Current everyday Tobacco user Tobacco use type: Cigarette Cigarettes Per Day: 7 e-Cigarette/Vaping Use: Never Used Second Hand Smoke Exposure: No Use of substances other than those prescribed or required for medical reasons: No Advance Directives: No service: No Current occupational status: retired Physical Exam Vital Signs: Vital Signs: Last Vital Signs Temp 98.3 F 04/06/21 14:37 Pulse 49 L 04/06/21 17:27 Resp 15 04/06/21 17:27 BP 130/64 04/06/21 17:27 Pulse Ox 95 04/06/21 17:27 Body Mass Index 22.6 Vital signs have been reviewed as appeared to be correct. Blood pressure elevated. Heart rate normal. Respiration rate normal. Temperature normal. Oxygen saturation normal. Appearance: Alert. Oriented X3. No acute distress. Head: Normal external exam. Normocephalic. Atraumatic. No Elder signs noted. No raccoon eyes noted Eyes: PERRLA. EOMI. Conjunctiva and sclera normal. Eyelids normal. ENT: TM's Normal. Pharynx normal. Uvula midline. Moist mucous membranes. No trismus noted. No drooling noted. No muffled voice noted. Neck: Normal inspection. Neck supple. FROM. No adenopathy. Thyroid Normal. No meningeal signs. No neck mass noted. CVS: Normal heart rate and rhythm. Heart sound normal. No murmurs noted. Pulses normal throughout. Respiratory: No respiratory distress. Painless inspiration. Breath sounds normal. No wheezes/rales/rhonchi noted. Chest nontender. No accessory muscle usage noted or decreased air movement noted. Abdomen: Soft and nontender. Bowel sounds normal in all 4 quadrants. No distention noted. No organomegaly noted. No visible injury noted. Back: No CVA tenderness. Full range of motion noted. Skin: Skin warm and dry. Normal skin color. Normal skin turgor. No rashes/lesions/lacerations noted. Extremities: No lower extremity edema. Extremities exhibit normal range of motion. Extremities nontender. Neuro: Oriented X 3. Cranial nerve exam: II-XII are grossly intact No motor deficit. No sensory deficit. Reflexes normal. Course Course Course Narrative: Assessment and plan. 76-year-old male came in with a complaint of chronic chest pain food related, patient has unremarkable workup for cardiac/pulmonary disease. Leukocytosis patient reportedly been sick for the last few days with what he thinks it is called, no evidence of acute infection at this point. Patient will need outpatient follow-up with chairman & chief executive officer. [facility] - Chest Pain Medical Records Data Attestation: I reviewed the patient's medical records. Lab Data Attestation: I reviewed the patient's lab results. Result diagrams: 04/06/21 13:15 04/06/21 13:15 Labs: Lab Results 04/06/21 04/06/21 04/06/21 Range/Units 13:15 13:15 13:15 WBC 14.4 H (4.8-10.8) X10*3/uL RBC 5.24 (4.60-5.80) X10*6/uL Hgb 15.6 (14.0-18.0) g/dl Hct 46.1 (42-52) % MCV 88.0 (80-98) fL MCH 29.8 (27.0-33.0) pg MCHC 33.8 (31.0-36.0) g/dl RDW 14.6 (11.0-16.0) % Plt Count 330 (160-400) X10*3/uL MPV 9.4 (9.4-12.4) fL Immature Gran % (Auto) 0.8 H (0.0-0.4) % Neut % (Auto) 68.9 (45-73) % Lymph % (Auto) 18.4 L (20-40) % Frontier % (Auto) 9.0 (2-11) % Eos % (Auto) 2.4 (0-4) % Baso % (Auto) 0.5 (0-2) % Lymph # (Auto) 2.6 (1.2-4.9) X10*3/uL Frontier # (Auto) 1.3 H (0.1-1.2) X10*3/uL Eos # (Auto) 0.3 (0.0-0.4) X10*3/uL Baso # (Auto) 0.1 (0.0-0.2) X10*3/uL Abs Immat Gran (auto) 0.12 H (0.00-0.03) X10*3/uL Absolute Neuts (auto) 9.9 H (2.0-8.3) X10*3/uL Absolute Nucleated RBC 0.000 (0.0-0.012) X10*3/uL Nucleated RBC % (auto) 0.0 (0.0-0.2) /100WBC D-Dimer NG/ML Sodium 142 (135-145) mmol/L Potassium 4.3 (3.3-5.1) mmol/L Chloride 106 (96-108) mmol/L Carbon Dioxide 29 (22-29) mmol/L Anion Gap 11 L (12-20) BUN 12 (9-16) mg/dL Creatinine 0.89 (0.5-1.4) mg/dL Estim Creat Clear Calc 58.2 Estimated GFR > 60 Random Glucose 132 H (60-115) mg/dL Calcium 9.6 (8.4-10.2) mg/dL Total Bilirubin 0.6 (0.0-1.0) mg/dL Direct Bilirubin 0.2 (0.0-0.5) mg/dL AST 25 (5-37) U/L ALT 22 (0-40) U/L Alkaline Phosphatase 181 H D (39-117) U/L Troponin I High Sens 5.4 (<3.5-35.0) ng/L Total Protein 7.0 (6.5-8.0) g/dL Albumin 4.0 (3.5-5.0) g/dL Lipase 46 (8-78) U/L Urine Color Urine Appearance Urine pH (5.0-8.0) Ur Specific [place] (1.005-1.025) Urine Protein (NEG-TRACE) MG/DL Urine Glucose (UA) (NEG) MG/DL Urine Ketones (NEG) MG/DL Urine Blood (NEG) Urine Nitrite (NEG) Ur Leukocyte Esterase (NEG) Urine RBC (0) /HPF Urine WBC (0-4) /HPF Ur Squamous Epith Cells /LPF Ur Renal Epithelial Cell /LPF Urine Bacteria /LPF Urine Mucus /LPF 04/06/21 04/06/21 Range/Units 13:15 13:15 WBC (4.8-10.8) X10*3/uL RBC (4.60-5.80) X10*6/uL Hgb (14.0-18.0) g/dl Hct (42-52) % MCV (80-98) fL MCH (27.0-33.0) pg MCHC (31.0-36.0) g/dl RDW (11.0-16.0) % Plt Count (160-400) X10*3/uL MPV (9.4-12.4) fL Immature Gran % (Auto) (0.0-0.4) % Neut % (Auto) (45-73) % Lymph % (Auto) (20-40) % Frontier % (Auto) (2-11) % Eos % (Auto) (0-4) % Baso % (Auto) (0-2) % Lymph # (Auto) (1.2-4.9) X10*3/uL Frontier # (Auto) (0.1-1.2) X10*3/uL Eos # (Auto) (0.0-0.4) X10*3/uL Baso # (Auto) (0.0-0.2) X10*3/uL Abs Immat Gran (auto) (0.00-0.03) X10*3/uL Absolute Neuts (auto) (2.0-8.3) X10*3/uL Absolute Nucleated RBC (0.0-0.012) X10*3/uL Nucleated RBC % (auto) (0.0-0.2) /100WBC D-Dimer 293 NG/ML Sodium (135-145) mmol/L Potassium (3.3-5.1) mmol/L Chloride (96-108) mmol/L Carbon Dioxide (22-29) mmol/L Anion Gap (12-20) BUN (9-16) mg/dL Creatinine (0.5-1.4) mg/dL Estim Creat Clear Calc Estimated GFR Random Glucose (60-115) mg/dL Calcium (8.4-10.2) mg/dL Total Bilirubin (0.0-1.0) mg/dL Direct Bilirubin (0.0-0.5) mg/dL AST (5-37) U/L ALT (0-40) U/L Alkaline Phosphatase (39-117) U/L Troponin I High Sens (<3.5-35.0) ng/L Total Protein (6.5-8.0) g/dL Albumin (3.5-5.0) g/dL Lipase (8-78) U/L Urine Color YELLOW Urine Appearance CLEAR Urine pH 6.0 (5.0-8.0) Ur Specific [place] <= 1.005 (1.005-1.025) Urine Protein NEG (NEG-TRACE) MG/DL Urine Glucose (UA) NEG (NEG) MG/DL Urine Ketones NEG (NEG) MG/DL Urine Blood TRACE (NEG) Urine Nitrite NEG (NEG) Ur Leukocyte Esterase NEG (NEG) Urine RBC 1-4 (0) /HPF Urine WBC 0 (0-4) /HPF Ur Squamous Epith Cells 1+ /LPF Ur Renal Epithelial Cell 1+ /LPF Urine Bacteria NONE /LPF Urine Mucus TRACE /LPF Imaging Data Chest x-ray: Radiologist's impression: No acute pathology. CT angiogram of the chest: Radiologist's impression: No acute PE. ECG Data ECG #1: Interpretation: Sinus bradycardia at 59 beats per minutes, normal intervals, nonspecific T-wave changes. Discharge Plan Discharge Clinical Impression: GERD (gastroesophageal reflux disease), Chest pain Patient Disposition: Home, Self-Care Instructions: Chest Pain (ED) Prescriptions: New omeprazole magnesium [Prilosec OTC] 20 mg tablet,delayed release (DR/EC) 20 mg PO BID Qty: 30 RF: 0 No Action clopidogrel 75 mg tablet 75 mg PO DAILY Qty: 90 RF: 2 aspirin 81 mg tablet,delayed release (DR/EC) 81 mg PO DAILY Qty: 90 RF: 3 gabapentin 300 mg capsule 300 mg PO DAILY Qty: 90 RF: 3 metoprolol tartrate 25 mg tablet 12.5 mg PO BID 90 Days Qty: 90 RF: 3 glycopyrrolate 1 mg tablet 1 mg PO DAILY 90 Days Qty: 90 RF: 1 omeprazole 20 mg capsule,delayed release(DR/EC) 20 mg PO BID Qty: 180 RF: 2 ibuprofen 600 mg tablet 600 mg PO TID PRN (Reason: for fever) Qty: 30 RF: 2 lisinopril 40 mg tablet 40 mg PO DAILY Qty: 90 RF: 2 atorvastatin 80 mg tablet 80 mg PO DAILY Qty: 90 RF: 2 Referrals: Po,Chemo Bonilla MD [Primary Care Provider] - 2 days J Luis Kirk MD [Physician] - 2 days
[2021-04-06 13:17] VITALS: BP 139/64; PULSE 44; RESP 16; TEMP 37.1; O2SAT 96
[2021-04-06 13:31] LABS: MANUAL DIFF FLAG NO
[2021-04-06 13:35] LABS: Appearance Urine CLEAR; Basophils Absolute Auto 0.1 X10*3/uL (0.0-0.2); Basophils Percent Auto 0.5 % (0-2); Color Urine YELLOW; Eosinophils Absolute Auto 0.3 X10*3/uL (0.0-0.4); Eosinophils Percent Auto 2.4 % (0-4); Glucose Urine UA NEG (NEG); Hematocrit 46.1 % (42-52); Hemoglobin 15.6 g/dl (14.0-18.0); Imm Gran Abs Auto 0.12 X10*3/uL (0.00-0.03); Imm Gran Pct Auto 0.8 % (0.0-0.4); Leukocyte Esterase Urine NEG (NEG); Lymphocytes Absolute Auto 2.6 X10*3/uL (1.2-4.9); Lymphocytes Percent Auto 18.4 % (20-40); Mean Corpuscular HGB Conc 33.8 g/dl (31.0-36.0); Mean Corpuscular Hemoglobin 29.8 pg (27.0-33.0); Mean Platelet Volume 9.4 fL (9.4-12.4); Monocytes Absolute Auto 1.3 X10*3/uL (0.1-1.2); Neutrophils Absolute Auto 9.9 X10*3/uL (2.0-8.3); Neutrophils Percent Auto 68.9 % (45-73); Nitrite Urine NEG (NEG); Platelet Count 330 X10*3/uL (160-400); Red Blood Count 5.24 X10*6/uL (4.60-5.80); Red Cell Distribution Width 14.6 % (11.0-16.0); Specific Gravity - Urine <= 1.005 (1.005-1.025); UACC Culture Trigger NO; Urine Blood TRACE (NEG); Urine Ketones NEG (NEG); Urine Protein NEG (NEG-TRACE); White Blood Count 14.4 X10*3/uL (4.8-10.8)
[2021-04-06 13:44] LABS: D Dimer 293 NG/ML
[2021-04-06 13:47] LABS: Mucus Urine TRACE /LPF; Renal Epithelial Cells Urine 1+ /LPF; Squamous Epithelial Cell Urine 1+ /LPF; WBC Urine 0 /HPF (0-4)
[2021-04-06 13:51] LABS: Alanine Aminotransferase 22 U/L (0-40); Alkaline Phosphatase 181 U/L (39-117); Anion Gap 11 (12-20); Aspartate Amino Transferase 25 U/L (5-37); Bilirubin Direct 0.2 mg/dL (0.0-0.5); Bilirubin Total 0.6 mg/dL (0.0-1.0); Blood Urea Nitrogen 12 mg/dL (9-16); Calcium 9.6 mg/dL (8.4-10.2); Carbon Dioxide 29 mmol/L (22-29); Chloride 106 mmol/L (96-108); Creatinine Clr Calc Pharmacy 58.2; Estimated Glomerular Filt Rate > 60; Glucose Random 132 mg/dL (60-115); Lipase 46 U/L (8-78); Potassium 4.3 mmol/L (3.3-5.1); Sodium 142 mmol/L (135-145)
[2021-04-06 13:57] LABS: Troponin-I High Sensitivity 5.4 ng/L (<3.5-35.0)
[2021-04-06 14:37] VITALS: BP 152/65; PULSE 51; RESP 18; TEMP 36.8; O2SAT 96
--- NOTE | 2021-04-06 14:38 | PC.NURSE ---
Pt resting quietly in bed. daughter at bedside. denies CP at this time but c/o substernal pain only with swallowing. awaits CT.
[2021-04-06] MEDS: iohexoL 350 MG/ML 100 ML INFUS..BTL IV (16:00)
[2021-04-06 17:27] VITALS: BP 130/64; PULSE 49; RESP 15; O2SAT 95
== END 2021-04-06 17:48 | disposition home or self-care (01) ==
PROVIDERS: Emergency Provider Emergency Medicine; PCP Internal Medicine
DX: K21.9 Gastro-esophageal reflux disease without esophagitis (principal); R07.9 Chest pain, unspecified; F17.210 Nicotine dependence, cigarettes, uncomplicated; Z71.6 Tobacco abuse counseling; Z79.899 Other long term (current) drug therapy
CPT/HCPCS: 36415; 71045; 71275; 80048; 80076; 81001; 83690; 84484; 85025; 85379; 93005; 99284; 99285; Q9967

== ENCOUNTER → 2021-04-26 13:22 | Outpatient (BNVA) | payer MEDICARE, SELFPAY | PROVIDERS: PCP Internal Medicine; Referring Provider Internal Medicine; Visit Provider Internal Medicine Cardiovascular Disease | DX: I25.10 Atherosclerotic heart disease of native coronary artery without angina pectoris (principal); I10 Essential (primary) hypertension; R13.10 Dysphagia, unspecified | CPT/HCPCS: 99212 ==

== ENCOUNTER → 2021-05-21 11:02 | Outpatient (BNVA) | payer MEDICARE, SELFPAY | PROVIDERS: PCP Internal Medicine; Referring Provider Internal Medicine; Visit Provider Internal Medicine Gastroenterology | DX: R13.10 Dysphagia, unspecified (principal) | CPT/HCPCS: 99212 ==

== ENCOUNTER 2021-07-23 09:48 | Outpatient (REF) | payer MEDICARE, SELFPAY ==
--- NOTE | ~2021-07-23 | XR_ITS ---
EXAMINATION: XR KNEE STANDING, BILATERAL XR KNEE, LEFT CLINICAL INFORMATION: Left knee pain. COMPARISON: Left knee 01/17/2008. TECHNIQUE: AP bilateral knees standing. Left knee 2 views. FINDINGS: AP BILATERAL KNEES: There is medial and lateral meniscal calcification in the left knee. Mild reduction in the medial compartment joint space in both knees and the lateral compartment joint space of the left knee. No bony erosive changes. No loose bodies. LEFT KNEE: There is no visible acute fracture, dislocation or loose bodies. No abnormal joint effusion. The soft tissues are normal. 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 No abnormal joint effusion in the left knee. Mild reduction in the medial and lateral compartment joint space of the right knee.
--- NOTE | ~2021-07-23 | XR_ITS ---
EXAMINATION: XR KNEE STANDING, BILATERAL XR KNEE, LEFT CLINICAL INFORMATION: Left knee pain. COMPARISON: Left knee 01/17/2008. TECHNIQUE: AP bilateral knees standing. Left knee 2 views. FINDINGS: AP BILATERAL KNEES: There is medial and lateral meniscal calcification in the left knee. Mild reduction in the medial compartment joint space in both knees and the lateral compartment joint space of the left knee. No bony erosive changes. No loose bodies. LEFT KNEE: There is no visible acute fracture, dislocation or loose bodies. No abnormal joint effusion. The soft tissues are normal. 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 No abnormal joint effusion in the left knee. Mild reduction in the medial and lateral compartment joint space of the right knee.
== END 2021-07-23 09:49 | disposition home or self-care (01) ==
LOC: HO.HOSX 09:48
PROVIDERS: Visit Provider Orthopaedic Surgery
DX: M11.262 Other chondrocalcinosis, left knee (principal)
CPT/HCPCS: 20610; 73560; 73565; 99202; J1100

== ENCOUNTER → 2021-07-28 13:52 | Outpatient (BNVA) | payer MEDICARE, SELFPAY | PROVIDERS: PCP Internal Medicine; Referring Provider Internal Medicine; Visit Provider Internal Medicine Cardiovascular Disease | DX: I25.10 Atherosclerotic heart disease of native coronary artery without angina pectoris (principal); I10 Essential (primary) hypertension; I25.2 Old myocardial infarction | CPT/HCPCS: 99212 ==

== ENCOUNTER → 2021-09-17 11:01 | Outpatient (BNVA) | payer MEDICARE, SELFPAY | PROVIDERS: PCP Internal Medicine; Referring Provider Internal Medicine; Visit Provider Internal Medicine Gastroenterology | DX: R13.10 Dysphagia, unspecified (principal); K59.09 Other constipation | CPT/HCPCS: 99212 ==

== ENCOUNTER 2021-10-05 13:13 | Outpatient (REF) | payer OTHER, SELFPAY ==
--- NOTE | ~2021-10-05 | XR_ITS ---
EXAMINATION: XR HIP, RIGHT CLINICAL INFORMATION: Pain COMPARISON: Previous x-ray February 2013 TECHNIQUE: Two views of the right hip. FINDINGS: Bone alignment is normal. No fracture or dislocation is seen. There are small osteophytes along the superior lateral acetabulum. The right hip joint is otherwise normal. There is a vascular stent in the right thigh. XR/XR hip RT min 2V IMPRESSION: Mild right hip arthritis.
== END 2021-10-05 13:14 | disposition home or self-care (01) ==
LOC: HO.XRAY 13:13
PROVIDERS: PCP Internal Medicine; Visit Provider Nurse Practitioner Family
DX: M25.551 Pain in right hip (principal); R10.31 Right lower quadrant pain
CPT/HCPCS: 73502

== ENCOUNTER 2021-11-16 12:24 | Day surgery (SDC) | payer OTHER, SELFPAY ==
--- NOTE | 2021-11-15 13:29 | HO.ANESPROP2 ---
Documented by User: Melissa Yung NP 11/15/21 13:38 HPI - Anesthesia Eval Consult details Narrative: 76yo M for Upper Endoscopy Stable at routine cardiac visit 07/2021 with f/u in 1 year. [facility] Active Problems Active Problems: All Active Problems (Updated 10/08/21 @ 17:42 by Matthew Brown, FURNITURE [employer]ER-C) Right groin pain (Acute) Arthritis of right hip (Acute) Excessive salivation (Acute) Ptyalism (Acute) LFT elevation (Acute) Leg muscle spasm (Acute) Annual physical exam (Acute) Tobacco abuse (Acute) Prostate enlargement (Acute) Folic acid deficiency (Acute) Dysphagia (Acute) Generalized anxiety disorder (Acute) Chondrocalcinosis articularis (Acute) Left knee pain (Acute) Insomnia (Acute) Right groin pain (Acute) Right hip pain (Acute) Hypertension (Acute) Anxiety and depression (Acute) GERD (gastroesophageal reflux disease) (Acute) Hypercholesterolemia (Acute) Coronary artery disease (Acute) Past Medical History Medical History Anxiety and depression Ascending aorta dilatation BPH (benign prostatic hyperplasia) Compression fracture of T4 vertebra Coronary artery disease CPA (cerebellopontine angle) tumor Dysphagia GERD (gastroesophageal reflux disease) H. pylori duodenitis Hypercholesterolemia Hypertension Impaired fasting glucose Peripheral vascular disease Post herpetic neuralgia Subdural bleeding Trigeminal neuralgia Family History Family History Father No problems noted. Mother No problems noted. Brother No problems noted. Sister No problems noted. Son No problems noted. Daughter No problems noted. Surgical History Surgical History H/O colonoscopy H/O colonoscopy H/O hernia repair History of ankle surgery History of coronary artery stent placement History of esophagogastroduodenoscopy (EGD) Hx laparoscopic cholecystectomy Social History Social History Housing: Apartment Are you a primary intensive care anaesthetist to a significant other at home: No Do you presently have visiting nurse or other home services: No Alcohol intake: never Patient Tobacco Use Status: Never used Tobacco Tobacco use type: Cigarette Cigarettes Per Day: 6 e-Cigarette/Vaping Use: Never Used Second Hand Smoke Exposure: No Use of substances other than those prescribed or required for medical reasons: No Have you been hit, kicked, punched, or otherwise hurt by someone within the past year? If so, by whom?: No Are you DNR?: No Advance Directives: No Advance Directives Information Provided: Yes Recently lost weight without trying: No Nutrition Risks: No Nutritional Risk Poor oral hygiene: No service: No Current occupational status: retired Cognitive needs: No Hearing needs: No Meds Allergies Allergy/AdvReac Type Severity Reaction Status Date / Time amlodipine Allergy Unknown Unknown Verified 10/08/21 14:06 famotidine Allergy Unknown Unknown Verified 10/08/21 14:06 lactose [LACTOSE] Allergy Unknown DIARRHEA Verified 10/08/21 14:06 metoprolol Allergy Unknown Unknown Verified 10/08/21 14:06 Home Medications Medication Instructions Recorded Confirmed Last Taken Type glycopyrrolate 1 mg tablet 1 mg PO DAILY tab 07/28/21 10/08/21 Unknown History loratadine 10 mg tablet 10 mg PO DAILY 09/17/21 10/08/21 Unknown History Exam Exam Date and Time: November 15, 2021 1329 Pertinent Lab Results Pertinent Lab Results: Laboratory Tests 04/06/21 04/06/21 13:15 13:15 WBC 14.4 H Hgb 15.6 Hct 46.1 Plt Count 330 Sodium 142 Potassium 4.3 Chloride 106 Carbon Dioxide 29 BUN 12 Creatinine 0.89 Narrative Narrative: EKG 03/2021 Vent. Rate : 059 BPM ? ? Atrial Rate : 059 BPM ?? P-R Int : 158 ms? QRS Dur : 076 ms ? ? QT Int : 410 ms ? ? ? P-R-T Axes : 043 -06 027 degrees ?? QTc Int : 405 ms ? Sinus bradycardia Otherwise normal ECG When compared with ECG of 06-APR-2020 15:49, No significant change was found Assessment and Plan Assessment Anesthesia Assessment: Chart Reviewed Documented by User: Rahel Denson MD 11/16/21 14:08 [facility] Past Medical History Medical History Anxiety and depression Ascending aorta dilatation BPH (benign prostatic hyperplasia) Compression fracture of T4 vertebra Coronary artery disease CPA (cerebellopontine angle) tumor Dysphagia GERD (gastroesophageal reflux disease) H. pylori duodenitis Hypercholesterolemia Hypertension Impaired fasting glucose Peripheral vascular disease Post herpetic neuralgia Subdural bleeding Trigeminal neuralgia Family History Family History Father No problems noted. Mother No problems noted. Brother No problems noted. Sister No problems noted. Son No problems noted. Daughter No problems noted. Surgical History Surgical History H/O colonoscopy H/O colonoscopy H/O hernia repair History of ankle surgery History of coronary artery stent placement History of esophagogastroduodenoscopy (EGD) Hx laparoscopic cholecystectomy History of Problems with Anesthesia: No Social History Social History Housing: Apartment Are you a primary intensive care anaesthetist to a significant other at home: No Do you presently have visiting nurse or other home services: No Alcohol intake: never Patient Tobacco Use Status: Never used Tobacco Tobacco use type: Cigarette Cigarettes Per Day: 6 e-Cigarette/Vaping Use: Never Used Second Hand Smoke Exposure: No Use of substances other than those prescribed or required for medical reasons: No Have you been hit, kicked, punched, or otherwise hurt by someone within the past year? If so, by whom?: No Are you DNR?: No Advance Directives: No Advance Directives Information Provided: Yes Recently lost weight without trying: No Nutrition Risks: No Nutritional Risk Poor oral hygiene: No service: No Current occupational status: retired Cognitive needs: No Hearing needs: No Meds Allergies Allergy/AdvReac Type Severity Reaction Status Date / Time amlodipine Allergy Unknown Unknown Verified 10/08/21 14:06 famotidine Allergy Unknown Unknown Verified 10/08/21 14:06 lactose [LACTOSE] Allergy Unknown DIARRHEA Verified 10/08/21 14:06 metoprolol Allergy Unknown Unknown Verified 10/08/21 14:06 Home Medications Medication Instructions Recorded Confirmed Last Taken Type glycopyrrolate 1 mg tablet 1 mg PO DAILY tab 07/28/21 10/08/21 Unknown History loratadine 10 mg tablet 10 mg PO DAILY 09/17/21 10/08/21 Unknown History Exam Airway Mallampati Class: II (Edentulous) TM Dist: >3cm Neck ROM: Limited Loose/Missing/Broken Teeth: Yes, Upper and Lower Heart: RRR Lungs: CTA Assessment and Plan Assessment Anesthesia Assessment: Anesthesia Plan Discussed and Chart Reviewed Final Anesthetic Review History of Problems with Anesthesia: No NPO: Yes ASA Class: III Final Preanesthetic Review: Meds/Allgs Chart Reviewed, Consent Obtained/Reviewed and Anes Risks/Benef Reviewed Patient Risk: Intermediate Procedure Risk: Intermediate Anesthetic Plan Anesthetic Plan: MAC: Disposition: Standard PACU
[2021-11-16 13:15] VITALS: BMI 23.7
[2021-11-16 13:21] VITALS: BMI 23.6
--- NOTE | 2021-11-16 13:40 | ECG_ITS ---
Test Reason : sinus bradycardia Blood Pressure : / mmHG Vent. Rate : 046 BPM Atrial Rate : 046 BPM P-R Int : 122 ms QRS Dur : 076 ms QT Int : 424 ms P-R-T Axes : 049 -09 043 degrees QTc Int : 371 ms Sinus bradycardia Otherwise normal ECG When compared with ECG of 06-APR-2021 10:57, No significant change was found Referred By: Felipe Machado Electronically Signed By:VARINDER CARMICHAEL MD
[2021-11-16 13:45] VITALS: BP 146/63; PULSE 48; RESP 18; TEMP 36.4; O2SAT 98
[2021-11-16] MEDS: Lactated Ringers 1,000 ML 100 ML IVCONT (13:59)
--- NOTE | 2021-11-16 14:15 | MHC.SHP ---
Pre-Procedural Eval Section A Date of Service: 11/16/21 Section B Chief Complaint: Dysphagia, Relevant Family History (Specify if Yes): No Relevant Social History: Tobacco Use Present Medications: see Short Stay Collaborative assessment Medical History: Significant History (Anxiety and depression Ascending aorta dilatation BPH (benign prostatic hyperplasia) Compression fracture of T4 vertebra Coronary artery disease CPA (cerebellopontine angle) tumor Dysphagia GERD (gastroesophageal reflux disease) H. pylori duodenitis Hypercholesterolemia Hypertension Impaired fasting) History of Previous Operations: Relevant previous surgery/procedure and date(s) (H/O colonoscopy H/O colonoscopy H/O hernia repair History of ankle surgery History of coronary artery stent placement History of esophagogastroduodenoscopy (EGD) Hx laparoscopic cholecystectomy) Allergies: Allergies Allergy/AdvReac Type Severity Reaction Status Date / Time amlodipine Allergy Unknown Unknown Verified 10/08/21 14:06 famotidine Allergy Unknown Unknown Verified 10/08/21 14:06 lactose [LACTOSE] Allergy Unknown DIARRHEA Verified 10/08/21 14:06 metoprolol Allergy Unknown Unknown Verified 10/08/21 14:06 Review of Systems Sugical H&P ROS: Negative: Constitution, Cardiovascular, Respiratory, Neurological, Psychiatric, Hem-Onc, Allergic/Immunologic, Gastrointestinal, Genitourinary, Musculoskeletal, Integumentary, Endocrine and Eyes/Ears/Nose/Throat Exam Surgical H&P Exam: Normal: HEENT, Normal: Heart, Normal: Lungs, Normal: Extremities, Normal: Abdomen, Normal: Skin and Normal: Neurological Plan Diagnosis/Plan: Unchanged I have reviewed the history and physical and performed a pertinent physical examination on my patient. No changes have occurred unless specified.
--- NOTE | 2021-11-16 14:17 | P.BOP_ITS ---
Brief Operative Note Date of Service: 11/16/21 Pre-op diagnosis: dysphagia Post-op diagnosis: same Procedure: see op note Surgeon: J Luis Kirk MD Anesthesia: MAC Was an [employer] used for this Procedure?: No Estimated blood loss (mL): 0 Condition: stable Disposition: PACU
--- NOTE | 2021-11-16 14:17 | W.PM.OPN ---
Operative Note Operative Note Date of Service: 11/16/21 Narrative: Procedure Description: EGD Indication: dysphagia Anesthesia: MAC FLEXIBLE TRANSORAL UPPER GASTROINTESTINAL ENDOSCOPY UPPER ENDOSCOPY Consent: Indications for the procedure and potential complications of bleeding, perforation, reaction to medications and missed diagnosis were discussed with the patient and informed consent was obtained. Instrument: Olympus GIF H 190 J mid size upper endoscope Monitoring: Vital signs and clinical assessment, continuous EKG monitoring, Pulse oximetry, Carbon Dioxide monitoring and blood pressure monitoring were done throughout the procedure. Procedure: The patient was placed in the left lateral decubitis position and pre-procedure medications were administered and a bite block was placed. The endoscope was inserted into the mouth and advanced under direct vision to the third part of duodenum. A careful inspection was made as the upper endoscope was withdrawn including a retroflexed examination of the proximal stomach; Findings and interventions are described below. Findings: Larynx:normal Esophagus: GE junction at 38 cm, diaphragm hiatus at 38 cm, balloon dilation done at LES to 19 mm with tear and heme noted. UES also dilated to 18 mm, no tear noted. Stomach: Patchy gastric erythema. Biopsies were obtained. Grade 2 flap valve on retroflexed examination of the cardia. Duodenum: Normal bulb and descending duodenum, Intervention: Biopsies as noted above, ballon dilation Impression/Findings: esophageal stricture lower esophagus s/p dilation gastritis PLAN: can eat normal diet as tolerated if has pain then can use tylenol or magic mouthwash
[2021-11-16 14:38] VITALS: BP 91/47; PULSE 49; RESP 18; TEMP 36.3; O2SAT 100
[2021-11-16 14:53] VITALS: BP 105/60; PULSE 52; RESP 18; TEMP 36.3; O2SAT 97
== END 2021-11-16 15:27 | disposition home or self-care (01) ==
PROVIDERS: PCP Internal Medicine; Visit Provider Internal Medicine Gastroenterology
PROC: 0DJ08ZZ Inspection of Upper Intestinal Tract, Via Natural or Artificial Opening Endoscopic (ICD-10-PCS; CPT 43235; principal; 2021-11-16 14:30)
DX: R13.10 Dysphagia, unspecified (principal); K22.2 Esophageal obstruction; K29.50 Unspecified chronic gastritis without bleeding; K21.9 Gastro-esophageal reflux disease without esophagitis; K44.9 Diaphragmatic hernia without obstruction or gangrene; K59.00 Constipation, unspecified; I10 Essential (primary) hypertension; I25.10 Atherosclerotic heart disease of native coronary artery without angina pectoris; Z98.61 Coronary angioplasty status; R73.01 Impaired fasting glucose; Z79.899 Other long term (current) drug therapy; Z88.8 Allergy status to other drugs, medicaments and biological substances; Z90.49 Acquired absence of other specified parts of digestive tract
CPT/HCPCS: 43249; 43239; 88305; 88342; 93005; C1726

== ENCOUNTER → 2021-11-29 12:26 | Outpatient (BNVA) | payer OTHER, SELFPAY | PROVIDERS: PCP Internal Medicine; Referring Provider Internal Medicine; Visit Provider Internal Medicine Gastroenterology | DX: R13.10 Dysphagia, unspecified (principal); F17.210 Nicotine dependence, cigarettes, uncomplicated; Z71.6 Tobacco abuse counseling | CPT/HCPCS: 99212 ==

== ENCOUNTER 2022-03-05 10:53 | Outpatient (REF) | payer OTHER, SELFPAY ==
[2022-03-05 11:08] LABS: MANUAL DIFF FLAG NO
[2022-03-05 11:30] LABS: Basophils Absolute Auto 0.1 X10*3/uL (0.0-0.2); Basophils Percent Auto 0.5 % (0-2); Eosinophils Absolute Auto 0.2 X10*3/uL (0.0-0.4); Eosinophils Percent Auto 1.6 % (0-4); Hematocrit 43.2 % (42.0-52.0); Hemoglobin 14.8 g/dl (14.0-18.0); Imm Gran Abs Auto 0.04 X10*3/uL (0.00-0.03); Imm Gran Pct Auto 0.4 % (0.0-0.4); Lymphocytes Absolute Auto 2.9 X10*3/uL (1.2-4.9); Lymphocytes Percent Auto 31.1 % (20-40); Mean Corpuscular HGB Conc 34.3 g/dl (31.0-36.0); Mean Corpuscular Hemoglobin 29.5 pg (27.0-33.0); Mean Corpuscular Volume 86.2 fL (80.0-98.0); Mean Platelet Volume 9.2 fL (9.4-12.4); Monocytes Absolute Auto 1.1 X10*3/uL (0.1-1.2); Monocytes Percent Auto 11.9 % (2-11); Neutrophils Percent Auto 54.5 % (45-73); Platelet Count 302 X10*3/uL (160-400); Red Blood Count 5.01 X10*6/uL (4.60-5.80); Red Cell Distribution Width 15.1 % (11.0-16.0); White Blood Count 9.2 X10*3/uL (4.8-10.8)
[2022-03-05 11:35] LABS: Appearance Urine Clear; Color Urine Dark Yellow; Glucose Urine UA Negative (Negative); Leukocyte Esterase Urine Negative (Negative); Nitrite Urine Negative (Negative); Specific Gravity - Urine 1.015 (1.005-1.025); Urine Blood Negative (Negative); Urine Ketones Negative (Negative); Urine Protein Negative (Neg-Trace)
[2022-03-05 11:39] LABS: Alanine Aminotransferase 11 U/L (0-40); Albumin Level 4.1 g/dL (3.5-5.0); Alkaline Phosphatase 180 U/L (39-117); Anion Gap 14 (12-20); Aspartate Amino Transferase 19 U/L (5-37); Bilirubin Total 0.4 mg/dL (0.0-1.0); Blood Urea Nitrogen 13 mg/dL (9-16); Calcium 9.3 mg/dL (8.4-10.2); Carbon Dioxide 27 mmol/L (22-29); Chloride 103 mmol/L (96-108); Cholesterol 117 mg/dL; Estimated Glomerular Filt Rate > 60; Glucose Random 111 mg/dL (60-115); HDL Cholesterol 28 mg/dL; LDL Cholesterol Calculated 40 mg/dl; Potassium 4.3 mmol/L (3.3-5.1); Sodium 140 mmol/L (135-145); Total Protein 7.1 g/dL (6.5-8.0); Triglycerides 249 mg/dL
[2022-03-05 11:42] LABS: Bacteria Urine None Seen (None Seen); Hyaline Casts Urine 0-2 /LPF (0-2); RBC Urine 0-2 /HPF (0-2); Squamous Epithelial Cell Urine 0-2 /HPF (0-2); WBC Urine 0-5 /HPF (0-5)
[2022-03-05 12:01] LABS: Free T4 (Free Thyroxine) 0.86 ng/dL (0.71-1.85); Thyroid Stimulating Hormone 1.17 uIU/mL (0.32-4.0)
[2022-03-05 12:14] LABS: Folate > 20.0 ng/mL (> or = 4.0); Vitamin B12 378 pg/mL (200-900)
== END 2022-03-05 10:54 | disposition home or self-care (01) ==
LOC: HO.LAB 10:53
PROVIDERS: PCP Internal Medicine; Visit Provider Internal Medicine
DX: I10 Essential (primary) hypertension (principal); E78.00 Pure hypercholesterolemia, unspecified
CPT/HCPCS: 36415; 80053; 80061; 81001; 82607; 82746; 84439; 84443; 85025

== ENCOUNTER 2022-07-21 04:27 | Emergency (ER) | payer OTHER, SELFPAY ==
--- NOTE | ~2022-07-21 | XR_ITS ---
EXAMINATION: XR CHEST CLINICAL INFORMATION: Chest pain COMPARISON: 04/06/2021 TECHNIQUE: Frontal view of the chest was obtained. FINDINGS: Persistent elevation of the right hemidiaphragm. No consolidation, edema, or effusion. No pneumothorax. Cardiomediastinal silhouette is within normal limits of size with a calcified aorta. XR/XR chest 1V IMPRESSION: No acute pulmonary disease.
[2022-07-21 04:29] VITALS: BP 124/64; PULSE 61; RESP 20; TEMP 36.6; O2SAT 96; BMI 22.3
--- NOTE | 2022-07-21 04:33 | ECG_ITS ---
Test Reason : chest pain Blood Pressure : / mmHG Vent. Rate : 052 BPM Atrial Rate : 052 BPM P-R Int : 162 ms QRS Dur : 072 ms QT Int : 446 ms P-R-T Axes : 015 -15 060 degrees QTc Int : 414 ms Sinus bradycardia Nonspecific T wave abnormality Abnormal ECG When compared with ECG of 16-NOV-2021 13:44, No significant change was found Referred By: Generic ED Physician Electronically Signed By:Nj Pringle
[2022-07-21 04:53] LABS: Basophils Absolute Auto 0.1 X10*3/uL (0.0-0.2); Basophils Percent Auto 0.4 % (0-2); Eosinophils Absolute Auto 0.2 X10*3/uL (0.0-0.4); Eosinophils Percent Auto 1.5 % (0-4); Hematocrit 45.3 % (42.0-52.0); Hemoglobin 15.5 g/dl (14.0-18.0); Imm Gran Abs Auto 0.06 X10*3/uL (0.00-0.03); Imm Gran Pct Auto 0.5 % (0.0-0.4); Lymphocytes Absolute Auto 2.6 X10*3/uL (1.2-4.9); Lymphocytes Percent Auto 20.2 % (20-40); MANUAL DIFF FLAG NO; Mean Corpuscular HGB Conc 34.2 g/dl (31.0-36.0); Mean Corpuscular Volume 87.8 fL (80.0-98.0); Mean Platelet Volume 8.8 fL (9.4-12.4); Monocytes Absolute Auto 1.4 X10*3/uL (0.1-1.2); Monocytes Percent Auto 11.1 % (2-11); NRBC Pct Auto 0.2 /100WBC (0.0-0.2); Neutrophils Absolute Auto 8.6 x10*3/uL (2.0-8.3); Neutrophils Percent Auto 66.3 % (45-73); Platelet Count 272 X10*3/uL (160-400); Red Blood Count 5.16 X10*6/uL (4.60-5.80); Red Cell Distribution Width 14.8 % (11.0-16.0)
[2022-07-21 05:08] LABS: Anion Gap 14 (12-20); Blood Urea Nitrogen 18 mg/dL (9-16); Calcium 9.5 mg/dL (8.4-10.2); Carbon Dioxide 25 mmol/L (22-29); Chloride 103 mmol/L (96-108); Creatinine Clr Calc Pharmacy 50.2; Estimated Glomerular Filt Rate > 60; Glucose Random 151 mg/dL (60-115); Potassium 3.6 mmol/L (3.3-5.1); Sodium 138 mmol/L (135-145)
[2022-07-21 05:14] LABS: Troponin-I High Sensitivity 3.9 ng/L (<3.5-35.0)
[2022-07-21 06:08] VITALS: PULSE 58
[2022-07-21 06:09] VITALS: BP 103/50; PULSE 53; RESP 15; TEMP 37.1; O2SAT 95
--- NOTE | 2022-07-21 06:32 | ED_ITS ---
HPI - Chest Pain General Chief Complaint: Chest Pain Stated Complaint: CP Time Seen by Provider: 07/21/22 06:21 Source: patient Mode of arrival: ambulatory Limitations: no limitations History of Present Illness HPI narrative: Patient comes emergency room complaining of chest pain that started approximately 7-8 hours ago. Patient states that the intensity of the pain started out as very mild, patient did not pay much attention to it. Patient states that prior to arrival, the pain was intense on both sides of the chest. Patient states that moving his arms upward would hurt his chest more. At this time, patient is asymptomatic. Related Data Home Medications Medication Instructions Recorded Confirmed omeprazole 20 mg capsule,delayed 20 mg PO BID 11/29/21 06/10/22 release Previous Rx's Medication Instructions Recorded chlorthalidone 25 mg tablet 25 mg PO DAILY 90 days #90 tabs 08/23/21 metoprolol tartrate 25 mg tablet 12.5 mg PO BID 90 days #90 tabs 11/01/21 lisinopril 40 mg tablet 40 mg PO DAILY #90 tabs 01/03/22 folic acid 1 mg tablet 1 mg PO DAILY 90 days #90 tabs 02/10/22 atorvastatin 80 mg tablet 80 mg PO DAILY #90 tabs 02/15/22 loratadine 10 mg tablet 10 mg PO DAILY #90 tabs 02/15/22 nortriptyline 10 mg capsule 10 mg PO BEDTIME #30 caps 02/23/22 omeprazole magnesium 20 mg 20 mg PO BID #180 tabs 03/30/22 tablet,delayed release (Prilosec OTC) aspirin 81 mg tablet,delayed 81 mg PO DAILY #90 tabs 05/24/22 release hydrocortisone 2.5 % topical cream 1 appl DE BID-QID PRN hemorrhoids 06/01/22 with perineal applicator #30 grams (Procto-Med HC) diclofenac sodium 1 % topical gel 4 g topical QID #100 grams 06/10/22 (Voltaren Arthritis Pain) paroxetine HCl 10 mg tablet 10 mg PO DAILY #90 tabs 06/28/22 gabapentin 300 mg capsule 300 mg PO DAILY #90 caps 07/05/22 Allergies Allergy/AdvReac Type Severity Reaction Status Date / Time amlodipine Allergy Unknown Unknown Verified 06/10/22 10:34 famotidine Allergy Unknown Unknown Verified 06/10/22 10:34 lactose [LACTOSE] Allergy Unknown DIARRHEA Verified 06/10/22 10:34 metoprolol Allergy Unknown Unknown Verified 06/10/22 10:34 Review of Systems Review of Systems: Constitutional : No Weight loss, No Fever, No Chills, No Night Sweats, No Fatigue, No Malaise ENT/Mouth : No Hearing loss, No Ear Pain, No Nasal Congestion, No Sinus Pain, No Hoarseness, No sore throat, No Rhinorrhea, No Swallowing Difficulty Eyes: No Eye Pain, No Swelling, No Redness, No Foreign Body, No Discharge, No Vision Changes Cardiovascular : Complaining of bilateral chest pain that worsened with moving arms, asymptomatic at this time. No SOB, No Dyspnea on Exertion, No Orthopnea, No Edema, No Palpitations Respiratory : No Cough, No Sputum, No Wheezing, No Smoke Exposure, No Dyspnea Gastrointestinal : No Nausea, No Vomiting, No Diarrhea, No Constipation, No abdominal Pain, No Hematochezia, No Melena Genitourinary : no irregular bleeding, No Dysuria, No Urinary Frequency, No Hematuria, No Urinary Incontinence, No Urgency, No Flank Pain, No Urinary Flow Changes, No Hesitancy Musculoskeletal : No joint pain, No Myalgias, No Joint Swelling Skin : No Skin Lesions, No rash Neuro : No Weakness, No Numbness, No Paresthesias, No Loss of Consciousness, No Dizziness, No Headache Psych : No Anxiety/Panic, No Depression, No SI/HI/AH/VH, No Social Issues, Heme/Lymph: No Bruising, No Bleeding,No Lymphadenopathy Endocrine : No Polyuria, No Polydipsia, No Temperature Intolerance [facility] Past Medical History Medical History Anxiety and depression Ascending aorta dilatation BPH (benign prostatic hyperplasia) Compression fracture of T4 vertebra Coronary artery disease CPA (cerebellopontine angle) tumor Dysphagia GERD (gastroesophageal reflux disease) H. pylori duodenitis Hypercholesterolemia Hypertension Impaired fasting glucose Peripheral vascular disease Post herpetic neuralgia Subdural bleeding Trigeminal neuralgia Surgical History H/O colonoscopy H/O colonoscopy H/O hernia repair History of ankle surgery History of coronary artery stent placement History of esophagogastroduodenoscopy (EGD) Hx laparoscopic cholecystectomy Family History Family History Father No problems noted. Mother No problems noted. Brother No problems noted. Sister No problems noted. Son No problems noted. Daughter No problems noted. Social History Social History (Updated 01/31/22 @ 16:34 by Chemo Ortiz MD) Housing: Apartment Are you a primary healthcare business analyst to a significant other at home: No Do you presently have visiting nurse or other home services: No Alcohol intake: never Patient Tobacco Use Status: Never used Tobacco Tobacco use type: Cigarette Cigarettes Per Day: 6 Years Smoked: still smokes 4-5 a day Smoked in Last 30 Days: Yes e-Cigarette/Vaping Use: Never Used Second Hand Smoke Exposure: No Use of substances other than those prescribed or required for medical reasons: No Advance Directives: No service: No Current occupational status: retired Cognitive needs: No Hearing needs: No Vision needs: Yes Physical Exam Vital Signs: Vital Signs: Last Vital Signs Temp 98.8 F 07/21/22 06:09 Pulse 53 07/21/22 06:09 Resp 15 07/21/22 06:09 BP 103/50 L 07/21/22 06:09 Pulse Ox 95 07/21/22 06:09 O2 Del Method 07/21/22 06:09 BMI result Body Mass Index 22.3 Const: Other: Appearance: Alert. Oriented X3. No acute distress. Eyes: Pupils equal, round and reactive to light. ENT: Pharynx normal. Neck: Normal inspection. Neck supple. No lymph nodes noted. No crepitus CVS: Normal heart rate and rhythm. Pulses normal. Normal S1 and S2 Respiratory: No respiratory distress. Breath sounds normal. No Wheezing. No rales Abdomen: Soft and nontender. No rigidity. No distention. Skin: Skin warm and dry. Normal skin color. Normal skin turgor. Extremities: No lower extremity edema. No Lacerations. No Rash Neuro: Oriented X 3. No motor deficit. No sensory deficit. Moving all extremities. No slurred speech. CN 2 through 12 grossly intact Psych: calm, cooperative, normal affect Course Course Course Narrative: Patient remains asymptomatic. First troponin negative, EKG 1. Unremarkable. Troponin 2. To be drawn at 07:45. sign out given to Dr Hung Medical Decision Making Medical Decision Making MDM Narrative: From the patient's description of the chest pain on arm pain with movement, chest pain is likely secondary to musculoskeletal etiology rather than cardiac etiology. Patient states that he has history of CABG, but is not sure. Patient states that he had some heart issue in the past Differential Diagnosis Differential Diagnoses: The differential diagnosis associated with the presentation includes (ACS, costochondritis, pleurisy) Lab Data MDM Lab Attestation statement: I reviewed the patient's lab results. 07/21/22 04:47 07/21/22 04:47 Labs: Lab Results 07/21/22 07/21/22 07/21/22 Range/Units 04:47 04:47 04:47 WBC 13.0 H (4.8-10.8) X10*3/uL RBC 5.16 (4.60-5.80) X10*6/uL Hgb 15.5 (14.0-18.0) g/dl Hct 45.3 (42.0-52.0) % MCV 87.8 (80.0-98.0) fL MCH 30.0 (27.0-33.0) pg MCHC 34.2 (31.0-36.0) g/dl RDW 14.8 (11.0-16.0) % Plt Count 272 (160-400) X10*3/uL MPV 8.8 L (9.4-12.4) fL Immature Gran % (Auto) 0.5 H (0.0-0.4) % Neut % (Auto) 66.3 (45-73) % Lymph % (Auto) 20.2 (20-40) % [place] % (Auto) 11.1 H (2-11) % Eos % (Auto) 1.5 (0-4) % Baso % (Auto) 0.4 (0-2) % Lymph # (Auto) 2.6 (1.2-4.9) X10*3/uL [place] # (Auto) 1.4 H (0.1-1.2) X10*3/uL Eos # (Auto) 0.2 (0.0-0.4) X10*3/uL Baso # (Auto) 0.1 (0.0-0.2) X10*3/uL Abs Immat Gran (auto) 0.06 H (0.00-0.03) X10*3/uL Absolute Neuts (auto) 8.6 H (2.0-8.3) x10*3/uL Absolute Nucleated RBC 0.030 H (0.0-0.012) X10*3/uL Nucleated RBC % (auto) 0.2 (0.0-0.2) /100WBC Sodium 138 (135-145) mmol/L Potassium 3.6 (3.3-5.1) mmol/L Chloride 103 (96-108) mmol/L Carbon Dioxide 25 (22-29) mmol/L Anion Gap 14 (12-20) BUN 18 H (9-16) mg/dL Creatinine 1.01 (0.5-1.4) mg/dL Estim Creat Clear Calc 50.2 Estimated GFR > 60 Random Glucose 151 H (60-115) mg/dL Calcium 9.5 (8.4-10.2) mg/dL Troponin I High Sens 3.9 (<3.5-35.0) ng/L Independent Interpretation I performed an independent interpretation of an: EKG (My interpretation of EKG: Sinus bradycardia, heart rate 52, no ST segment depression or elevation, no T- wave inversion, QTC 414) and Plain X-Ray (My interpretation of chest x-ray: No pneumonia, no rib fractures) Radiology Impression Discussion of test interpretation with radiology: I have reviewed the radiologist's reading. Radiologist Impression: FINDINGS: Persistent elevation of the right hemidiaphragm. No consolidation, edema, or effusion. No pneumothorax. Cardiomediastinal silhouette is within normal limits of size with a calcified aorta. XR/XR chest 1V IMPRESSION: No acute pulmonary disease. Discharge Plan Discharge Clinical Impression: Atypical chest pain Patient Disposition: Still a Patient Instructions: Chest Pain (ED) Additional Instructions: Please follow-up with your primary care physician tomorrow. If you have any worsening or new symptoms, please return to the emergency room or call 911 Prescriptions: No Action chlorthalidone 25 mg tablet 25 mg PO DAILY 90 Days Qty: 90 3RF metoprolol tartrate 25 mg tablet 12.5 mg PO BID 90 Days Qty: 90 3RF lisinopril 40 mg tablet 40 mg PO DAILY Qty: 90 2RF folic acid 1 mg tablet 1 mg PO DAILY 90 Days Qty: 90 2RF loratadine 10 mg tablet 10 mg PO DAILY Qty: 90 2RF atorvastatin 80 mg tablet 80 mg PO DAILY Qty: 90 2RF nortriptyline 10 mg capsule 10 mg PO BEDTIME Qty: 30 2RF omeprazole magnesium [Prilosec OTC] 20 mg tablet,delayed release (DR/EC) 20 mg PO BID Qty: 180 2RF aspirin 81 mg tablet,delayed release (DR/EC) 81 mg PO DAILY Qty: 90 3RF hydrocortisone [Procto-Med HC] 2.5 % cream with perineal applicator 1 appl DE BID-QID PRN (Reason: hemorrhoids) Qty: 30 0RF paroxetine HCl 10 mg tablet 10 mg PO DAILY Qty: 90 2RF gabapentin 300 mg capsule 300 mg PO DAILY Qty: 90 3RF diclofenac sodium [Voltaren Arthritis Pain] 1 % gel 4 g topical QID Qty: 100 3RF Rx Instructions: apply to single knee, ankle, foot; for foot includes sole/toes/top of foot omeprazole 20 mg capsule,delayed release(DR/EC) 20 mg PO BID
[2022-07-21] MEDS: Aspirin Enteric Coated 325 MG TABLET.DR PO (06:39)
[2022-07-21 07:33] VITALS: BP 97/81; PULSE 56; RESP 14; TEMP 36.8; O2SAT 94
[2022-07-21 08:11] LABS: Troponin-I High Sensitivity 4.3 ng/L (<3.5-35.0)
== END 2022-07-21 09:45 | disposition home or self-care (01) ==
PROVIDERS: Emergency Provider Emergency Medicine; PCP Internal Medicine
DX: R07.89 Other chest pain (principal); I10 Essential (primary) hypertension; E78.00 Pure hypercholesterolemia, unspecified; F41.8 Other specified anxiety disorders
CPT/HCPCS: 36415; 71045; 80048; 84484; 85025; 93005; 99283; 99285

== ENCOUNTER → 2022-09-28 13:30 | Outpatient (BNVA) | payer OTHER, SELFPAY | PROVIDERS: PCP Internal Medicine; Referring Provider Internal Medicine; Visit Provider Internal Medicine Cardiovascular Disease | DX: I25.10 Atherosclerotic heart disease of native coronary artery without angina pectoris (principal); I10 Essential (primary) hypertension; E78.00 Pure hypercholesterolemia, unspecified | CPT/HCPCS: 99212 ==

== ENCOUNTER 2023-02-06 09:25 | Outpatient (REF) | payer OTHER, SELFPAY ==
[2023-02-06 09:44] LABS: MANUAL DIFF FLAG NO
[2023-02-06 10:19] LABS: Basophils Absolute Auto 0.1 X10*3/uL (0.0-0.2); Basophils Percent Auto 0.9 % (0-2); Eosinophils Absolute Auto 0.3 X10*3/uL (0.0-0.4); Eosinophils Percent Auto 2.9 % (0-4); Hematocrit 45.3 % (42.0-52.0); Hemoglobin 15.2 g/dl (14.0-18.0); Imm Gran Abs Auto 0.05 X10*3/uL (0.00-0.03); Imm Gran Pct Auto 0.5 % (0.0-0.4); Lymphocytes Absolute Auto 2.4 X10*3/uL (1.2-4.9); Lymphocytes Percent Auto 24.6 % (20-40); Mean Corpuscular HGB Conc 33.6 g/dl (31.0-36.0); Mean Corpuscular Volume 89.5 fL (80.0-98.0); Mean Platelet Volume 9.1 fL (9.4-12.4); Monocytes Absolute Auto 1.1 X10*3/uL (0.1-1.2); Monocytes Percent Auto 11.4 % (2-11); Neutrophils Absolute Auto 5.8 x10*3/uL (2.0-8.3); Neutrophils Percent Auto 59.7 % (45-73); Platelet Count 285 X10*3/uL (160-400); Red Blood Count 5.06 X10*6/uL (4.60-5.80); White Blood Count 9.8 X10*3/uL (4.8-10.8)
[2023-02-06 10:52] LABS: Alanine Aminotransferase 16 U/L (0-40); Albumin Level 3.9 g/dL (3.5-5.0); Alkaline Phosphatase 133 U/L (39-117); Anion Gap 16 (12-20); Aspartate Amino Transferase 31 U/L (5-37); Bilirubin Total 0.9 mg/dL (0.0-1.0); Blood Urea Nitrogen 14 mg/dL (9-16); Calcium 9.6 mg/dL (8.4-10.2); Carbon Dioxide 25 mmol/L (22-29); Chloride 104 mmol/L (96-108); Cholesterol 119 mg/dL; Estimated Glomerular Filt Rate > 60; Glucose Random 95 mg/dL (60-115); HDL Cholesterol 34 mg/dL; LDL Cholesterol Calculated 50 mg/dl; Potassium 3.8 mmol/L (3.3-5.1); Sodium 141 mmol/L (135-145); Total Protein 6.8 g/dL (6.5-8.0); Triglycerides 176 mg/dL
[2023-02-06 11:08] LABS: Estimated Average Glucose 114 mg/dL; Hemoglobin A1C 149.0416 umol/L; Hemoglobin A1c % 5.6 %
[2023-02-06 11:15] LABS: Free T4 (Free Thyroxine) 0.67 ng/dL (0.71-1.85); Thyroid Stimulating Hormone 1.26 uIU/mL (0.32-4.0)
== END 2023-02-06 09:26 | disposition home or self-care (01) ==
LOC: HO.LAB 09:25
PROVIDERS: PCP Internal Medicine; Visit Provider Internal Medicine
DX: E78.00 Pure hypercholesterolemia, unspecified (principal); R73.01 Impaired fasting glucose
CPT/HCPCS: 36415; 80053; 80061; 83036; 84439; 84443; 85025

== ENCOUNTER 2023-02-09 13:00 | Outpatient (AMB) | payer OTHER, SELFPAY ==
--- NOTE | 2023-02-09 13:07 | MHC.PC.OV ---
Vital Signs 02/09/23 13:08 Height 5 ft 4 in Weight 126 lb BMI 21.6 BP 130/62 Blood Pressure Location Lt brachial Position Sitting Pulse 52 Pulse Source Pulse Oximeter Pulse Oximetry (%) 94 Oxygen Delivery Method Room Air Intake Visit Reasons: PE Allergies amlodipine Allergy (Unknown, Verified 02/09/23 13:08) Unknown famotidine Allergy (Unknown, Verified 02/09/23 13:08) Unknown lactose [LACTOSE] Allergy (Unknown, Verified 02/09/23 13:08) DIARRHEA metoprolol Allergy (Unknown, Verified 02/09/23 13:08) Unknown Medication List - Last Reconciled 02/09/23 by Chemo Ortiz MD aspirin 81 mg PO DAILY atorvastatin 80 mg PO DAILY chlorthalidone 25 mg PO DAILY 90 days diclofenac sodium 1% (Voltaren Arthritis Pain) 4 grams topical QID folic acid 1 mg PO DAILY 90 days gabapentin 300 mg PO DAILY hydrocortisone 2.5% (Procto-Med HC) 1 appl DC BID-QID PRN lisinopril 40 mg PO DAILY loratadine 10 mg PO DAILY paroxetine HCl 10 mg PO DAILY Tobacco use date assessed: 12/06/22 Fall risk assessment: No Falls in past year Last assessed Fall Risk: 02/09/23 Dental Screening Dental Screen Date: 02/09/23 Did you have a dental visit in the last 12 months?: No Did you have a dental problem in the last 6 months where you did not have access to dental care?: No Was dental information given to patient?: No HPI PE HPI Details 78-year-old male smoker with CPA tumor with excessive salivation Anabelle anxiety disorder hypertension GERD and hypercholesterolemia. Patient also has coronary artery disease with impaired glucose tolerance. Last seen in November 2022 and was referred to gastroenterology for colonoscopy. Patient is here for physical exam. eye doctor mentioned that mass is pressing on the hearing and vision peroblem. will be seeing neurology next month. mild constipation [facility] Medical History (Updated 02/09/23 @ 13:49 by Chemo Ortiz MD) Anxiety and depression Ascending aorta dilatation BPH (benign prostatic hyperplasia) Compression fracture of T4 vertebra Coronary artery disease CPA (cerebellopontine angle) tumor Dysphagia GERD (gastroesophageal reflux disease) H. pylori duodenitis Hypercholesterolemia Hypertension Impaired fasting glucose Peripheral vascular disease Post herpetic neuralgia Right groin pain Right groin pain Subdural bleeding Trigeminal neuralgia Surgical History H/O colonoscopy H/O colonoscopy H/O hernia repair History of ankle surgery History of coronary artery stent placement History of esophagogastroduodenoscopy (EGD) Hx laparoscopic cholecystectomy Family History (Updated 02/09/23 @ 13:09 by Rosalinda Calvillo [facility]) Father No problems noted. Mother No problems noted. Brother No problems noted. Sister No problems noted. Son No problems noted. Daughter No problems noted. Social History (Updated 09/28/22 @ 13:40 by Mark Booth Benigno) Housing: Apartment Are you a primary primary care md to a significant other at home: No Do you presently have visiting nurse or other home services: No Alcohol intake: former Year quit: 2019 Patient Tobacco Use Status: Current everyday Tobacco user Tobacco use type: Cigarette Cigarettes Per Day: 6 Years Smoked: 25 +/- e-Cigarette/Vaping Use: Never Used Second Hand Smoke Exposure: No service: No Current occupational status: retired Cognitive needs: No Hearing needs: No Vision needs: Yes Questionnaire PHQ-9 Over the last 2 weeks, how often have you been bothered by any of the following problems? 1. Little interest or pleasure in doing things: not at all 2. Feeling down, depressed, or hopeless: not at all 3. Trouble falling or staying asleep, or sleeping too much: not at all 4. Feeling tired or having little energy: not at all 5. Poor appetite or overeating: not at all 6. Feeling bad about yourself - or that you are a failure or have let yourself or your family down: not at all 7. Trouble concentrating on things, such as reading the newspaper or watching television: not at all 8. Moving or speaking so slowly that other people could have noticed. Or the opposite - being so fidgety or restless that you have been moving around a lot more than usual: not at all 9. Thoughts that you would be better off or of hurting yourself in some way: not at all Total score: 0 Depression Screening Interpretation: Negative Source: Developed by Drs. Dante Lambert, Gypsy Eugene, Jg Weber and colleagues, with an educational rut from [employer]. Thrive Questionnaire Date Thrive assessed: 09/05/22 AUDIT C Alcohol Use Questionnaire (AUDIT-C) 1. How often do you have a drink containing alcohol?: Never 2. How many drinks containing alcohol do you have on a typical day when you are drinking?: 1 or 2 (0) 3. How often do you have six or more drinks on one occasion?: Never Total Score: 0 LEMUEL-7 AMB Questionnaire LEMUEL-7 Date LEMUEL - 7 assessed: 09/05/22 Source: Developed by Drs. Dante Lambert, Gypsy Eugene, Jg Weber and colleagues, with an educational rut from [employer]. Review of Systems Const Denies poor appetite and Denies weakness Eyes Denies no additional complaints ENT Reports Normal hearing present, Denies dizziness, Denies nasal congestion, Denies tinnitus and Denies sore throat Card Denies chest pain, Denies syncope, Denies rapid heart rate and Denies dyspnea Resp Denies cough and Denies dyspnea GI Denies change in stool character, Reports constipation, Denies diarrhea, Denies nausea and Denies vomiting Denies dysuria and Denies urinary frequency Neuro Reports Normal hearing present, Denies confusion, Denies dizziness, Denies syncope and Denies weakness Psych Denies confusion Physical exam (Primary Care) Vital Signs: Last Vital Signs Pulse 52 02/09/23 13:08 BP 130/62 02/09/23 13:08 Pulse Ox 94 02/09/23 13:08 Oxygen Delivery Method Room Air 02/09/23 13:08 BMI result Body Mass Index 21.6 Tobacco/Smoking Status: Tobacco use Status Tobacco use date assessed 12/06/22 02/09/23 13:12 Patient Tobacco Use Status Current everyday Tobacco 02/09/23 13:12 Tobacco use type Cigarette 02/09/23 13:12 e-Cigarette/Vaping Use Never Used 02/09/23 13:12 PHQ-9: PHQ-9 Score PHQ-9: Total score 0 02/09/23 13:12 Depression Screening Interpretation: Negative Thrive Assessment: Date of Thrive Assessment Date Thrive assessed 09/05/22 02/09/23 13:12 Const General: No confusion Orientation/consciousness: No confusion HENMT Head: Yes normocephalic Ears: external ears normal and TM's normal bilaterally Face and sinus: Yes normal facial exam Mouth: moist mucous membranes Throat: Yes tonsils normal Eyes Conjunctivae: conjunctivae normal Pupils: Equal, round and reactive pupils present and Pupil accommodation reflex normal Direct Ophthalmoscopy: normal light reflex Neck Neck: No lymphadenopathy Thyroid: Thyroid normal Chest Chest palpation & inspection: normal inspection of the chest Resp Effort & Inspection: normal respiratory effort and no audible wheezes Auscultation: clear to auscultation bilaterally, no crackles, no wheezes and lung sounds not diminished Cardio Rate: regular rate Rhythm: regular rhythm Peripheral pulses: radial pulses present and dorsalis pedis present GI Other: decline rectal exam Palpation (GI): no masses Auscultation: normal bowel sounds and normoactive bowel sounds Rectal Exam - Male: Yes deferred Other: R inguinal hernia 4 by 5 cm mass Skin General skin exam: no rashes or lesions noted Rashes: no rashes Neuro General: No confusion Cranial nerves: Yes Equal, round and reactive pupils present and Yes Normal hearing present Cognition (Neuro): normal cognition Gait exam (Neuro): Normal gait present Motor exam (neuro): 5/5 motor strength present throughout Deep tendon reflexes (DTR's): Right brachioradialis reflex intensity grade: 2+, Left brachioradialis reflex intensity grade: 2+, Right patellar reflex intensity grade: 2+ and Left patellar reflex intensity grade: 2+ Extrem General: No edema Assessment and Plan Assessment & Plan (1) Annual physical exam: Code(s): Z00.00 - Encounter for general adult medical examination without abnormal findings (2) Excessive salivation: Comment: Submandibular gland excision 05/2020 Code(s): K11.7 - Disturbances of salivary secretion Plan: Patient continues to be plagued by this problem (3) Tobacco abuse: Code(s): Z72.0 - Tobacco use Plan: Stop smoking! (4) Prostate enlargement: Code(s): N40.0 - Benign prostatic hyperplasia without lower urinary tract symptoms Plan: Stable (5) Generalized anxiety disorder: Comment: Declined counseling referral Code(s): F41.1 - Generalized anxiety disorder Plan: Continue with present medication (6) Hypertension: Code(s): I10 - Essential (primary) hypertension Qualifiers: Hypertension type: essential hypertension Qualified Code(s): I10 - Essential (primary) hypertension Plan: Continue with blood pressure medication. Decrease salt intake and exercise continue with lisinopril 40 mg once a day chlorthalidone 25 mg once a day (7) GERD (gastroesophageal reflux disease): Code(s): K21.9 - Gastro-esophageal reflux disease without esophagitis Plan: Avoid the foods that causes that usually spicy foods, tomato products, juices, coffee, soda and foods that your sensitive to. After eating do not lie down, allow 3-4 hours before in lie down. And keep the head of bed above 30 degrees to avoid the acid from going up. (8) Hypercholesterolemia: Code(s): E78.00 - Pure hypercholesterolemia, unspecified Plan: Avoid fried foods, chicken skin, eggs, butter margarine, pastries and meat. Be it pork or beef they have a lot of cholesterol patient is on atorvastatin 80 mg once a day LDL goal of less than 70 (9) Coronary artery disease: Comment: NSTEMI with drug-eluting stent February 2016 Code(s): I25.10 - Atherosclerotic heart disease of [place] coronary artery without angina pectoris Qualifiers: Coronary Disease-Associated Artery/Lesion type: [place] artery [place] vs. transplanted heart: [place] heart Associated angina: without angina Qualified Code(s): I25.10 - Atherosclerotic heart disease of [place] coronary artery without angina pectoris Plan: Control the cholesterol, weight, blood pressure (10) CPA (cerebellopontine angle) tumor: Comment: October 2017, March 2019 Code(s): D33.3 - Benign neoplasm of cranial nerves (11) Left inguinal hernia: Comment: Inguinal hernia repair Dr. Booth 2010 Code(s): K40.90 - Unilateral inguinal hernia, without obstruction or gangrene, not specified as recurrent Plan: mass still seenn in the inguinal area Orders: Orders MR head/brain w con Today D33.3 - Benign neoplasm of cranial nerves Blood Urea Nitrogen Today K40.90 - Unilateral inguinal hernia, without obstruction or gangrene, not specified as recurrent Creatinine Today K40.90 - Unilateral inguinal hernia, without obstruction or gangrene, not specified as recurrent Referrals General Surgery Referral K40.90 - Unilateral inguinal hernia, without obstruction or gangrene, not specified as recurrent Coding Level of Care Code Est Pt Prev Care >65y(73437) Diagnoses Annual physical exam Z00.00 Excessive salivation K11.7 Tobacco abuse Z72.0 Prostate enlargement N40.0 Generalized anxiety disorder F41.1 Hypertension I10 Hypertension type: essential hypertension GERD (gastroesophageal reflux disease) K21.9 Hypercholesterolemia E78.00 Coronary artery disease I25.10 Coronary Disease-Associated Artery/Lesion type: [place] artery [place] vs. transplanted heart: [place] heart Associated angina: without angina CPA (cerebellopontine angle) tumor D33.3 Left inguinal hernia K40.90
[2023-02-09 13:08] VITALS: BP 130/62; PULSE 52; O2SAT 94; BMI 21.6
== END 2023-02-09 14:02 | disposition home or self-care (01) ==
PROVIDERS: PCP Internal Medicine; Visit Provider Internal Medicine
DX: Z00.00 Encounter for general adult medical examination without abnormal findings (principal); K11.7 Disturbances of salivary secretion; F17.210 Nicotine dependence, cigarettes, uncomplicated; I10 Essential (primary) hypertension; K21.9 Gastro-esophageal reflux disease without esophagitis; N40.0 Benign prostatic hyperplasia without lower urinary tract symptoms; F41.1 Generalized anxiety disorder; E78.00 Pure hypercholesterolemia, unspecified; I25.10 Atherosclerotic heart disease of native coronary artery without angina pectoris; K40.90 Unilateral inguinal hernia, without obstruction or gangrene, not specified as recurrent
CPT/HCPCS: 99397

== ENCOUNTER 2023-03-01 14:11 | Outpatient (AMB) | payer OTHER, SELFPAY ==
--- NOTE | 2023-03-01 14:23 | MHC.OFFVIS ---
Intake Vital Signs 03/01/23 14:27 Height 5 ft 4 in Weight 126 lb BMI 21.6 BP 111/60 Blood Pressure Location Rt brachial Position Sitting Pulse 45 L Intake Visit Reasons: unilateral inguinal hernia Intake Note: This patient presents for an assessment for a unilateral inguinal hernia. Patient c/o; left groin, denies bulge, denies pain or discomfort. 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: License Clerk Name: Pt declined inspecting and testing lead hand Accompanied by: Self / Same As Patient Allergies amlodipine Allergy (Unknown, Verified 03/01/23 14:27) Unknown famotidine Allergy (Unknown, Verified 03/01/23 14:27) Unknown lactose [LACTOSE] Allergy (Unknown, Verified 03/01/23 14:27) DIARRHEA metoprolol Allergy (Unknown, Verified 03/01/23 14:27) Unknown Medication List - Last Reconciled 03/01/23 by Brandon Booth MD aspirin 81 mg PO DAILY atorvastatin 80 mg PO DAILY chlorthalidone 25 mg PO DAILY 90 days diclofenac sodium 1% (Voltaren Arthritis Pain) 4 grams topical QID folic acid 1 mg PO DAILY 90 days gabapentin 300 mg PO DAILY hydrocortisone 2.5% (Procto-Med HC) 1 appl [place] BID-QID PRN lisinopril 40 mg PO DAILY loratadine 10 mg PO DAILY paroxetine HCl 10 mg PO DAILY HPI unilateral inguinal hernia HPI Details 78-year-old male referred for an inguinal hernia. He had been seen by his primary care physician for this month and was noted to have a left inguinal hernia. He was therefore referred to me He says that this actually not bother him. He says that he has had no pain or tenderness. He says that he does not even know that he had a hernia He had left inguinal hernia repair in 2011. [facility] Medical History Anxiety and depression Ascending aorta dilatation BPH (benign prostatic hyperplasia) Compression fracture of T4 vertebra Coronary artery disease CPA (cerebellopontine angle) tumor Dysphagia GERD (gastroesophageal reflux disease) H. pylori duodenitis Hypercholesterolemia Hypertension Impaired fasting glucose Peripheral vascular disease Post herpetic neuralgia Right groin pain Right groin pain Subdural bleeding Trigeminal neuralgia Surgical History H/O colonoscopy H/O colonoscopy H/O hernia repair History of ankle surgery History of coronary artery stent placement History of esophagogastroduodenoscopy (EGD) Hx laparoscopic cholecystectomy Family History Father No problems noted. Mother No problems noted. Brother No problems noted. Sister No problems noted. Son No problems noted. Daughter No problems noted. Social History Housing: Apartment Are you a primary resident care manager rn to a significant other at home: No Do you presently have visiting nurse or other home services: No Alcohol intake: former Year quit: 2019 Patient Tobacco Use Status: Current everyday Tobacco user Tobacco use type: Cigarette Cigarettes Per Day: 6 Years Smoked: 25 +/- e-Cigarette/Vaping Use: Never Used Second Hand Smoke Exposure: No service: No Current occupational status: retired Cognitive needs: No Hearing needs: No Vision needs: Yes Review of Systems Const Denies chills and Denies fever(s) Card Denies chest pain, Denies dyspnea and Denies dyspnea on exertion Resp Denies cough, Denies dyspnea and Denies dyspnea on exertion GI Denies hematochezia and Denies change in bowel habits Denies hematuria and Denies difficulty urinating Musc Denies back pain and Denies limited range of motion Neuro Denies focal weakness and Denies convulsions Psych Denies depression and Denies mood swings Physical Exam Vital Signs: Last Vital Signs Pulse 45 L 03/01/23 14:27 BP 111/60 03/01/23 14:27 BMI result Body Mass Index 21.6 Const General: comfortable and no acute distress Orientation/consciousness: patient oriented x3 Neck Neck: Yes no lymphadenopathy Resp Auscultation: clear to auscultation bilaterally Cardio Rhythm: regular rhythm GI Other: Right inguinal hernia, more obvious will Valsalva, nontender Palpation (GI): Soft to palpation, nontender and no guarding Neuro General: patient oriented x3 Assessment & Plan Assessment & Plan (1) Left inguinal hernia: Comment: Inguinal hernia repair Dr. Booth 2010 Code(s): K40.90 - Unilateral inguinal hernia, without obstruction or gangrene, not specified as recurrent Plan: He had left inguinal hernia repair in 2012. It appears that he has a recurrence. However, he says that this does not bother him. He denies any pain, tenderness or any symptoms. I did have a long discussion with him about the option of proceeding with repair. I explained the risks including but not limited to bleeding, infections, poor healing, recurrence, inherent risks of anesthesia, as well as the benefits and alternatives. He says that he wants to hold off on surgery at this time because he says that this does not bother him. He says he will come back to the office to be re-evaluated if he feels that he has symptoms with regards to the hernia. He understands small risk of acute incarceration Coding Level of Care Code New Pt Level 3 ([id number]) Diagnoses Left inguinal hernia K40.90
[2023-03-01 14:27] VITALS: BP 111/60; PULSE 45; BMI 21.6
== END 2023-03-01 14:43 | disposition home or self-care (01) ==
PROVIDERS: PCP Internal Medicine; Visit Provider Surgery
DX: K40.90 Unilateral inguinal hernia, without obstruction or gangrene, not specified as recurrent (principal)
CPT/HCPCS: 99203

== ENCOUNTER → 2023-03-01 14:11 | Outpatient (BNVA) | payer OTHER, SELFPAY | PROVIDERS: PCP Internal Medicine; Visit Provider Surgery | DX: K40.90 Unilateral inguinal hernia, without obstruction or gangrene, not specified as recurrent (principal) | CPT/HCPCS: 99202 ==

== ENCOUNTER 2023-03-10 14:43 | Outpatient (AMB) | payer OTHER, SELFPAY ==
[2023-03-10 14:44] VITALS: BP 104/68; PULSE 60; O2SAT 94; BMI 21.3
--- NOTE | 2023-03-10 14:44 | A.OFFPC_ITS ---
Vital Signs 03/10/23 14:44 Height 5 ft 4 in Weight 124 lb 2 oz BMI 21.3 BP 104/68 Blood Pressure Location Lt brachial Position Sitting Pulse 60 Pulse Source Pulse Oximeter Pulse Oximetry (%) 94 Oxygen Delivery Method Room Air Intake Visit Reasons: ptyalism, cholesterol , CAD, HTN Allergies amlodipine Allergy (Unknown, Verified 03/10/23 14:45) Unknown famotidine Allergy (Unknown, Verified 03/10/23 14:45) Unknown lactose [LACTOSE] Allergy (Unknown, Verified 03/10/23 14:45) DIARRHEA metoprolol Allergy (Unknown, Verified 03/10/23 14:45) Unknown Medication List - Last Reconciled 03/10/23 by Chemo Ortiz MD aspirin 81 mg PO DAILY atorvastatin 80 mg PO DAILY chlorthalidone 25 mg PO DAILY 90 days diclofenac sodium 1% (Voltaren Arthritis Pain) 4 grams topical QID folic acid 1 mg PO DAILY 90 days gabapentin 300 mg PO DAILY hydrocortisone 2.5% (Procto-Med HC) 1 appl [place] BID-QID PRN lisinopril 40 mg PO DAILY loratadine 10 mg PO DAILY paroxetine HCl 10 mg PO DAILY Tobacco use date assessed: 12/06/22 Fall risk assessment: No Falls in past year Last assessed Fall Risk: 03/10/23 Dental Screening Dental Screen Date: 03/10/23 Did you have a dental visit in the last 12 months?: No Did you have a dental problem in the last 6 months where you did not have access to dental care?: No Was dental information given to patient?: Patient has dentist HPI ptyalism, cholesterol , CAD, HTN HPI Details 78-year-old male smoker with a history of excessive salivation prostate enlargement [place] anxiety disorder hypertension GERD hypercholesterolemia coronary artery disease and a left lingular hernia last seen in February for physical exam. MRI of the head was requested and as for the left inguinal hernia referral to surgeon. Patient is here for follow-up. Patient has seen the surgeon and since the patient is asymptomatic will continue to monitor. for the BP asking for refill on the m etoprololl but advised patient from the last time MEtoprolol stopped due to bradycardia. [facility] Medical History Anxiety and depression Ascending aorta dilatation BPH (benign prostatic hyperplasia) Compression fracture of T4 vertebra Coronary artery disease CPA (cerebellopontine angle) tumor Dysphagia GERD (gastroesophageal reflux disease) H. pylori duodenitis Hypercholesterolemia Hypertension Impaired fasting glucose Peripheral vascular disease Post herpetic neuralgia Right groin pain Right groin pain Subdural bleeding Trigeminal neuralgia Surgical History H/O colonoscopy H/O colonoscopy H/O hernia repair History of ankle surgery History of coronary artery stent placement History of esophagogastroduodenoscopy (EGD) Hx laparoscopic cholecystectomy Family History Father No problems noted. Mother No problems noted. Brother No problems noted. Sister No problems noted. Son No problems noted. Daughter No problems noted. Social History Housing: Apartment Are you a primary customer care associate to a significant other at home: No Do you presently have visiting nurse or other home services: No Alcohol intake: former Year quit: 2019 Patient Tobacco Use Status: Current everyday Tobacco user Tobacco use type: Cigarette Cigarettes Per Day: 6 Years Smoked: 25 +/- e-Cigarette/Vaping Use: Never Used Second Hand Smoke Exposure: No service: No Current occupational status: retired Cognitive needs: No Hearing needs: No Vision needs: Yes Questionnaire PHQ-9 Over the last 2 weeks, how often have you been bothered by any of the following problems? 1. Little interest or pleasure in doing things: not at all 2. Feeling down, depressed, or hopeless: not at all 3. Trouble falling or staying asleep, or sleeping too much: not at all 4. Feeling tired or having little energy: not at all 5. Poor appetite or overeating: not at all 6. Feeling bad about yourself - or that you are a failure or have let yourself or your family down: not at all 7. Trouble concentrating on things, such as reading the newspaper or watching television: not at all 8. Moving or speaking so slowly that other people could have noticed. Or the opposite - being so fidgety or restless that you have been moving around a lot more than usual: not at all 9. Thoughts that you would be better off or of hurting yourself in some way: not at all Total score: 0 Depression Screening Interpretation: Negative Source: Developed by Drs. Dante Lambert, Gypsy Eugene, Jg Weber and colleagues, with an educational rut from [employer]. Thrive Questionnaire Date Thrive assessed: 09/05/22 AUDIT C Alcohol Use Questionnaire (AUDIT-C) 1. How often do you have a drink containing alcohol?: Never 2. How many drinks containing alcohol do you have on a typical day when you are drinking?: 1 or 2 (0) 3. How often do you have six or more drinks on one occasion?: Never Total Score: 0 LEMUEL-7 AMB Questionnaire LEMUEL-7 Date LEMUEL - 7 assessed: 09/05/22 Source: Developed by Drs. Dante Lambert, Gypsy Eugene, Jg Weber and colleagues, with an educational rut from [employer]. Physical exam (Primary Care) Vital Signs: Last Vital Signs Pulse 60 03/10/23 14:44 BP 104/68 03/10/23 14:44 Pulse Ox 94 03/10/23 14:44 Oxygen Delivery Method Room Air 03/10/23 14:44 BMI result Body Mass Index 21.3 Tobacco/Smoking Status: Tobacco use Status Tobacco use date assessed 12/06/22 03/10/23 14:49 Patient Tobacco Use Status Current everyday Tobacco 03/10/23 14:49 Tobacco use type Cigarette 03/10/23 14:49 e-Cigarette/Vaping Use Never Used 03/10/23 14:49 PHQ-9: PHQ-9 Score PHQ-9: Total score 0 03/10/23 15:12 Depression Screening Interpretation: Negative Thrive Assessment: Date of Thrive Assessment Date Thrive assessed 09/05/22 03/10/23 14:49 Const General: alert; No acute distress Eyes Conjunctivae: conjunctivae normal Resp Auscultation: clear to auscultation bilaterally Cardio Rate: regular rate Rhythm: regular rhythm GI Inspection: Yes normal to inspection Extrem General: Yes normal to inspection and No edema Assessment and Plan Assessment & Plan (1) Left inguinal hernia: Comment: Inguinal hernia repair Dr. Booth 2010 Code(s): K40.90 - Unilateral inguinal hernia, without obstruction or gangrene, not specified as recurrent Plan: Recurrent inguinal hernia left: Conservative management (2) Excessive salivation: Comment: Submandibular gland excision 05/2020 Code(s): K11.7 - Disturbances of salivary secretion Plan: Continuing to be treated symptomatically. MR requested= pending (3) Tobacco abuse: Code(s): Z72.0 - Tobacco use Plan: Patient is strongly advised to stop smoking (4) Coronary artery disease: Comment: NSTEMI with drug-eluting stent February 2016 Code(s): I25.10 - Atherosclerotic heart disease of [place] coronary artery without angina pectoris Qualifiers: Associated angina: without angina Coronary Disease-Associated Artery/Lesion type: [place] artery [place] vs. transplanted heart: [place] heart Qualified Code(s): I25.10 - Atherosclerotic heart disease of [place] coronary artery without angina pectoris Plan: Control the cholesterol, weight, blood pressure (5) Hypertension: Code(s): I10 - Essential (primary) hypertension Qualifiers: Hypertension type: essential hypertension Qualified Code(s): I10 - Essential (primary) hypertension Plan: Clarified with the patient that metoprolol has been taken off her is list because of bradycardia. Patient is on chlorthalidone 25 mg once a day and lisinopril 40 mg once a day Coding Level of Care Code Est Pt Level 4 (63924) Diagnoses Left inguinal hernia K40.90 Excessive salivation K11.7 Tobacco abuse Z72.0 Coronary artery disease I25.10 Associated angina: without angina Coronary Disease-Associated Artery/Lesion type: [place] artery [place] vs. transplanted heart: [place] heart Hypertension I10 Hypertension type: essential hypertension
== END 2023-03-10 15:21 | disposition home or self-care (01) ==
PROVIDERS: Visit Provider Internal Medicine
DX: I10 Essential (primary) hypertension (principal); K40.90 Unilateral inguinal hernia, without obstruction or gangrene, not specified as recurrent; K11.7 Disturbances of salivary secretion; Z72.0 Tobacco use; I25.10 Atherosclerotic heart disease of native coronary artery without angina pectoris
CPT/HCPCS: 99214

== ENCOUNTER → 2023-03-17 11:42 | Outpatient (BNVA) | payer OTHER, SELFPAY | PROVIDERS: Visit Provider Internal Medicine Gastroenterology ==

== ENCOUNTER 2023-05-05 12:44 | Outpatient (REF) | payer OTHER, SELFPAY ==
--- NOTE | ~2023-05-05 | MR_ITS ---
EXAMINATION: MR BRAIN WITHOUT AND WITH CONTRAST CLINICAL INFORMATION: Cranial nerve tumor. COMPARISON: Brain MRI from 11/21/2019. CT head from 06/16/2020. TECHNIQUE: Multiplanar, multisequence MRI of the brain was obtained using a skull base protocol without and following the administration of 5.5 mL of Gadavist intravenous contrast. FINDINGS: No focal restricted diffusion is demonstrated to suggest acute or subacute cerebral ischemia. No evidence of acute or chronic hemorrhagic products on heme-sensitive imaging. Scattered periventricular and deep white matter T2 FLAIR hyperintensities consistent with mild underlying microangiopathy. Proportional prominence of the ventricles and sulcal spaces without evidence of obstructive hydrocephalus. No abnormal mass effect. No midline shift. Normal appearance of the pituitary gland. Normal positioning of the cerebellar tonsils. Redemonstrated enhancing mass along the right cerebellopontine angle, measuring 1.5 x 1.2 x 1.1 cm (previously 1.8 x 1.5 x 1.5 cm). No mass of the left cerebellopontine angle. Normal appearance of the cranial nerve V nerve roots bilaterally. Normal appearance of the left-sided cranial nerve VII and VIII nerve roots. No edema or vascular loops near the nerve root entry sites. Otherwise, normal appearance of the internal auditory canals without enhancing mass lesions. No abnormal enhancement along the course of the facial nerves bilaterally. Normal appearance of the labyrinthine structures without loss of T2 signal or abnormal enhancement. Normal arterial and venous vascular flow voids are present. No abnormal intracranial contrast enhancement. Normal, homogeneous marrow signal. Mild mucosal thickening of the paranasal sinuses. No signal abnormalities within the mastoids. MR/MR head/brain wo/w con IMPRESSION: 1. No acute intracranial abnormalities. 2. Mild underlying microangiopathy and generalized cerebral volume loss. 3. A mass along the right cerebellopontine angle suggestive of an underlying schwannoma have mildly decreased in size compared to exam from 2019. 4. No additional abnormal intracranial enhancement.
[2023-05-05] MEDS: gadobutroL 7.5 ML VIAL IVPUSH (14:30)
== END 2023-05-05 12:45 | disposition home or self-care (01) ==
LOC: HO.MRI 12:44
PROVIDERS: PCP Internal Medicine; Visit Provider Internal Medicine
DX: D33.3 Benign neoplasm of cranial nerves (principal)
CPT/HCPCS: 70553; A9585

== ENCOUNTER 2023-07-25 15:49 | Outpatient (AMB) | payer OTHER, SELFPAY ==
[2023-07-25 16:05] VITALS: BP 118/62; PULSE 81; O2SAT 98; BMI 20.9
--- NOTE | 2023-07-25 16:05 | MHC.PC.OV ---
Vital Signs 07/25/23 16:05 Height 5 ft 4 in Weight 122 lb 0.4 oz BMI 20.9 BP 118/62 Blood Pressure Location Lt brachial Position Sitting Pulse 81 Pulse Source Pulse Oximeter Pulse Oximetry (%) 98 Oxygen Delivery Method Room Air Intake Visit Reasons: trouble sleeping Health Researcher Required: No Allergies amlodipine Allergy (Unknown, Verified 07/25/23 16:08) Unknown famotidine Allergy (Unknown, Verified 07/25/23 16:08) Unknown lactose [LACTOSE] Allergy (Unknown, Verified 07/25/23 16:08) DIARRHEA metoprolol Allergy (Unknown, Verified 07/25/23 16:08) Unknown Medication List - Last Reconciled 07/25/23 by Chemo Ortiz MD aspirin 81 mg PO DAILY atorvastatin 80 mg PO DAILY chlorthalidone 25 mg PO DAILY 90 days clotrimazole 1% 1 appl topical BID fluconazole 100 mg PO DAILY gabapentin 300 mg PO DAILY lisinopril 40 mg PO DAILY loratadine 10 mg PO DAILY paroxetine HCl 10 mg PO DAILY polyethylene glycol 3350 (Miralax) 17 grams PO DAILY sodium,potassium,mag sulfates 17.5-3.13-1.6 gram (Suprep Bowel Prep Kit) DILUTE; drink 1/2 at 6-8 pm and half at 11 PM- 1AM Tobacco use date assessed: 07/25/23 Fall risk assessment: No Falls in past year Last assessed Fall Risk: 07/25/23 Dental Screening Dental Screen Date: 07/25/23 HPI trouble sleeping HPI Details 78-year-old male smoker with coronary artery disease left inguinal hernia excessive salivation hypertension last seen in March 2023. Patient's last colonoscopy was February 2018 and due for this year. Patient has a right cerebellopontine angle mass and had an MRI done April 2023 results: No acute intracranial abnormalities. 2. Mild underlying microangiopathy and generalized cerebral volume loss. 3. A mass along the right cerebellopontine angle suggestive of an underlying schwannoma have mildly decreased in size compared to exam from 2019. 4. No additional abnormal intracranial enhancement. Constipated and takes colace. and not helping [facility] History (Updated 07/25/23 @ 16:31 by Chemo Ortiz MD) Right groin pain Dysphagia Right groin pain Subdural bleeding Compression fracture of T4 vertebra H. pylori duodenitis BPH (benign prostatic hyperplasia) Hypertension Anxiety and depression Post herpetic neuralgia CPA (cerebellopontine angle) tumor Trigeminal neuralgia Peripheral vascular disease GERD (gastroesophageal reflux disease) Ascending aorta dilatation Hypercholesterolemia Impaired fasting glucose Coronary artery disease Surgical History History of ankle surgery H/O hernia repair Hx laparoscopic cholecystectomy History of esophagogastroduodenoscopy (EGD) H/O colonoscopy H/O colonoscopy History of coronary artery stent placement Family History Father No problems noted. Mother No problems noted. Brother No problems noted. Sister No problems noted. Son No problems noted. Daughter No problems noted. Social History Housing: Apartment Are you a primary caregiver assisted living to a significant other at home: No Do you presently have visiting nurse or other home services: No Alcohol intake: former Year quit: 2019 Patient Tobacco Use Status: Current everyday Tobacco user Tobacco use type: Cigarette Cigarettes Per Day: 6 Years Smoked: 25 +/- e-Cigarette/Vaping Use: Never Used Second Hand Smoke Exposure: No service: No Current occupational status: retired Cognitive needs: No Hearing needs: No Vision needs: Yes Questionnaire PHQ-9 Over the last 2 weeks, how often have you been bothered by any of the following problems? 1. Little interest or pleasure in doing things: not at all 2. Feeling down, depressed, or hopeless: not at all 3. Trouble falling or staying asleep, or sleeping too much: several days 4. Feeling tired or having little energy: not at all 5. Poor appetite or overeating: not at all 6. Feeling bad about yourself - or that you are a failure or have let yourself or your family down: not at all 7. Trouble concentrating on things, such as reading the newspaper or watching television: not at all 8. Moving or speaking so slowly that other people could have noticed. Or the opposite - being so fidgety or restless that you have been moving around a lot more than usual: not at all 9. Thoughts that you would be better off or of hurting yourself in some way: not at all Total score: 1 Depression Screening Interpretation: Negative Depression Screening Done: Yes Source: Developed by Drs. Dante Lambert, Jg Almonte and colleagues, with an educational rut from [employer]. Thrive Questionnaire Date Thrive assessed: 09/05/22 AUDIT C Alcohol Use Questionnaire (AUDIT-C) 1. How often do you have a drink containing alcohol?: Never 2. How many drinks containing alcohol do you have on a typical day when you are drinking?: 1 or 2 (0) 3. How often do you have six or more drinks on one occasion?: Never Total Score: 0 LEMUEL-7 AMB Questionnaire LEMUEL-7 Date LEMUEL - 7 assessed: 09/05/22 Source: Developed by Drs. Dante Lambert, Jg Almonte and colleagues, with an educational rut from [employer]. Physical exam (Primary Care) Vital Signs: Last Vital Signs Pulse 81 07/25/23 16:05 BP 118/62 07/25/23 16:05 Pulse Ox 98 07/25/23 16:05 Oxygen Delivery Method Room Air 07/25/23 16:05 BMI result Body Mass Index 20.9 Tobacco/Smoking Status: Tobacco use Status Tobacco use date assessed 07/25/23 07/25/23 16:10 Patient Tobacco Use Status Current everyday Tobacco 07/25/23 16:10 Tobacco use type Cigarette 07/25/23 16:10 e-Cigarette/Vaping Use Never Used 07/25/23 16:10 PHQ-9: PHQ-9 Score PHQ-9: Total score 1 07/25/23 16:10 Depression Screening Interpretation: Negative Thrive Assessment: Date of Thrive Assessment Date Thrive assessed 09/05/22 07/25/23 16:10 Const General: alert; No acute distress Eyes Conjunctivae: conjunctivae normal Resp Auscultation: clear to auscultation bilaterally Cardio Rate: regular rate Rhythm: regular rhythm GI Inspection: Yes normal to inspection Extrem General: Yes normal to inspection and No edema Assessment and Plan Assessment & Plan (1) Excessive salivation: Comment: Submandibular gland excision 05/2020 Code(s): K11.7 - Disturbances of salivary secretion Plan: Continue to be treated conservatively which has not been effective. (2) Coronary artery disease: Comment: NSTEMI with drug-eluting stent February 2016 Code(s): I25.10 - Atherosclerotic heart disease of [place] coronary artery without angina pectoris Qualifiers: Coronary Disease-Associated Artery/Lesion type: [place] artery [place] vs. transplanted heart: [place] heart Associated angina: without angina Qualified Code(s): I25.10 - Atherosclerotic heart disease of [place] coronary artery without angina pectoris Plan: Control the cholesterol, weight, blood pressure,on baby aspirin once a day (3) Hypercholesterolemia: Code(s): E78.00 - Pure hypercholesterolemia, unspecified Plan: Avoid fried foods, chicken skin, eggs, butter margarine, pastries and meat. Be it pork or beef they have a lot of cholesterol LDL goal of less than 70 and triglyceride of less than 150. January 2023 last blood work patient is on atorvastatin 80 mg once a day (4) GERD (gastroesophageal reflux disease): Code(s): K21.9 - Gastro-esophageal reflux disease without esophagitis Plan: Avoid the foods that causes that usually spicy foods, tomato products, juices, coffee, soda and foods that your sensitive to. After eating do not lie down, allow 3-4 hours before in lie down. And keep the head of bed above 30 degrees to avoid the acid from going up. (5) Hypertension: Code(s): I10 - Essential (primary) hypertension Qualifiers: Hypertension type: essential hypertension Qualified Code(s): I10 - Essential (primary) hypertension Plan: Continue with blood pressure medication. Decrease salt intake and exercise takes chlorthalidone 25 mg once a day lisinopril 40 mg once a day (6) CPA (cerebellopontine angle) tumor: Comment: October 2017, March 2019, 04/2023 No acute intracranial abnormalities. 2. Mild underlying microangiopathy and generalized cerebral volume loss. 3. A mass along the right cerebellopontine angle suggestive of an underlying schwannoma have mildly decreased in size compared to exam from 2020. 4. No additional abnormal intracranial enhancement. Code(s): D33.3 - Benign neoplasm of cranial nerves Plan: MRI recently done showed persistent right cerebellopontine angle tumor patient would like to have the opinion from the neurosurgeon. Did discussed about decreasing size (7) Impaired fasting glucose: Code(s): R73.01 - Impaired fasting glucose Plan: Decrease the amount of carbohydrate intake, pasta, bread, rice and potatoes are all sugar and that is aside from all the sweet stuff, remember that fruits are good but they are Sweet also. (8) Colon cancer screening: Code(s): Z12.11 - Encounter for screening for malignant neoplasm of colon Plan: Scheduled August 2023. (9) Constipation: Code(s): K59.00 - Constipation, unspecified Plan: Three rules for constipation 1. Diet need to have a high fiber diet less of meat 2. Increase oral fluids 3. Exercise Orders: Referrals Neurosurgery Referral D33.3 - Benign neoplasm of cranial nerves Medications: New polyethylene glycol 3350 (Miralax) 17 grams PO DAILY 30 ea 3RF K59.00 - Constipation, unspecified Coding Level of Care Code Est Pt Level 4 (72692) Diagnoses Excessive salivation K11.7 Coronary artery disease involving [place] coronary artery of [place] heart without angina pectoris I25.10 Coronary Disease-Associated Artery/Lesion type: [place] artery [place] vs. transplanted heart: [place] heart Associated angina: without angina Hypercholesterolemia E78.00 Gastroesophageal reflux disease without esophagitis K21.9 Essential hypertension I10 Hypertension type: essential hypertension CPA (cerebellopontine angle) tumor D33.3 Impaired fasting glucose R73.01 Colon cancer screening Z12.11 Constipation K59.00
== END 2023-07-25 16:36 | disposition home or self-care (01) ==
PROVIDERS: PCP Internal Medicine; Visit Provider Internal Medicine
DX: K11.7 Disturbances of salivary secretion (principal); D33.3 Benign neoplasm of cranial nerves; I25.10 Atherosclerotic heart disease of native coronary artery without angina pectoris; E78.00 Pure hypercholesterolemia, unspecified; K21.9 Gastro-esophageal reflux disease without esophagitis; I10 Essential (primary) hypertension; R73.01 Impaired fasting glucose; K59.00 Constipation, unspecified
CPT/HCPCS: 99214

== ENCOUNTER 2023-08-11 14:00 | Emergency (ER) | payer OTHER, SELFPAY | END 2023-08-11 14:46 | disposition left against medical advice (07) | PROVIDERS: Emergency Provider Emergency Medicine; PCP Internal Medicine | DX: K59.00 Constipation, unspecified (principal) ==

== ENCOUNTER 2023-08-23 11:16 | Day surgery (SDC) | payer OTHER, SELFPAY ==
[2023-08-21 13:38] VITALS: BMI 20.9
--- NOTE | 2023-08-22 10:45 | P.CONAN_ITS ---
Documented by User: Melissa Yung NP 08/22/23 10:50 HPI - Anesthesia Eval Consult details Narrative: 78yo M for Colonoscopy [facility] Active Problems Active Problems: All Active Problems (Updated 08/21/23 @ 13:33 by Aleta Badillo RN) Constipation (Acute) Left inguinal hernia (Acute) Colon cancer screening (Acute) Alkaline phosphatase elevation (Acute) Hearing deficit (Acute) Esophageal stricture (Acute) Annual physical exam (Acute) Arthritis of right hip (Acute) Right hip pain (Acute) Insomnia (Acute) Left knee pain (Acute) Chondrocalcinosis articularis (Acute) Generalized anxiety disorder (Acute) Dysphagia (Acute) Folic acid deficiency (Acute) Prostate enlargement (Acute) Tobacco abuse (Acute) Annual physical exam (Acute) Leg muscle spasm (Acute) LFT elevation (Acute) Ptyalism (Acute) Excessive salivation (Acute) Impaired fasting glucose (Acute) CPA (cerebellopontine angle) tumor (Acute) Hypertension (Acute) GERD (gastroesophageal reflux disease) (Acute) Hypercholesterolemia (Acute) Coronary artery disease (Acute) Past Medical History Medical History (Updated 08/21/23 @ 13:33 by Aleta Badillo RN) Dysphagia Right groin pain Subdural bleeding Compression fracture of T4 vertebra H. pylori duodenitis BPH (benign prostatic hyperplasia) Hypertension Anxiety and depression Post herpetic neuralgia CPA (cerebellopontine angle) tumor Trigeminal neuralgia Peripheral vascular disease GERD (gastroesophageal reflux disease) Ascending aorta dilatation Hypercholesterolemia Impaired fasting glucose Coronary artery disease Family History Family History Father No problems noted. Mother No problems noted. Brother No problems noted. Sister No problems noted. Son No problems noted. Daughter No problems noted. Surgical History Surgical History (Updated 08/21/23 @ 13:35 by Aleta Badillo RN) History of ankle surgery H/O hernia repair Hx laparoscopic cholecystectomy History of esophagogastroduodenoscopy (EGD) H/O colonoscopy History of coronary artery stent placement History of Problems with Anesthesia: No Social History Social History Housing: Apartment Are you a primary career professional to a significant other at home: No Do you presently have visiting nurse or other home services: No Alcohol intake: former Year quit: 2019 Patient Tobacco Use Status: Current everyday Tobacco user Tobacco use type: Cigarette Cigarettes Per Day: 6 Years Smoked: 25 +/- e-Cigarette/Vaping Use: Never Used Second Hand Smoke Exposure: No Advance Directives: No Advance Directives Information Provided: Yes service: No Current occupational status: retired Cognitive needs: No Hearing needs: No Vision needs: Yes Meds Allergies Allergy/AdvReac Type Severity Reaction Status Date / Time lactose [LACTOSE] Allergy Intermediate DIARRHEA Verified 08/21/23 13:39 amlodipine Allergy Unknown Unknown Verified 07/25/23 16:08 famotidine Allergy Unknown Unknown Verified 07/25/23 16:08 metoprolol Allergy Unknown Unknown Verified 07/25/23 16:08 Home Medications Medication Instructions Recorded Confirmed Last Taken Type clotrimazole 1 % topical cream 1 appl topical BID 03/17/23 08/21/23 Unknown History fluconazole 100 mg tablet 100 mg PO DAILY 03/17/23 08/21/23 Unknown History Exam Height,Weight and Vital Signs: Height 5 ft 4 in Weight 55.338 kg Pertinent Lab Results Pertinent Lab Results: Laboratory Tests 02/06/23 09:43 WBC 9.8 Hgb 15.2 Hct 45.3 Plt Count 285 Sodium 141 Potassium 3.8 Chloride 104 Carbon Dioxide 25 BUN 14 Creatinine 1.01 Narrative Narrative: EKG 07/2022 Vent. Rate : 052 BPM Atrial Rate : 052 BPM P-R Int : 162 ms QRS Dur : 072 ms QT Int : 446 ms P-R-T Axes : 015 -15 060 degrees QTc Int : 414 ms Sinus bradycardia Nonspecific T wave abnormality Abnormal ECG When compared with ECG of 16-NOV-2021 13:44, No significant change was found MR head/brain wo/w con 04/2023 IMPRESSION: 1. No acute intracranial abnormalities. 2. Mild underlying microangiopathy and generalized cerebral volume loss. 3. A mass along the right cerebellopontine angle suggestive of an underlying schwannoma have mildly decreased in size compared to exam from 2019. 4. No additional abnormal intracranial enhancement. Assessment and Plan Assessment Anesthesia Assessment: Chart Reviewed Final Anesthetic Review History of Problems with Anesthesia: No Documented by User: Britta Santiago MD 08/23/23 11:59 [facility] Past Medical History Medical History (Updated 08/21/23 @ 13:33 by Aleta Badillo RN) Dysphagia Right groin pain Subdural bleeding Compression fracture of T4 vertebra H. pylori duodenitis BPH (benign prostatic hyperplasia) Hypertension Anxiety and depression Post herpetic neuralgia CPA (cerebellopontine angle) tumor Trigeminal neuralgia Peripheral vascular disease GERD (gastroesophageal reflux disease) Ascending aorta dilatation Hypercholesterolemia Impaired fasting glucose Coronary artery disease Family History Family History Father No problems noted. Mother No problems noted. Brother No problems noted. Sister No problems noted. Son No problems noted. Daughter No problems noted. Family history of problems with anesthesia: No Surgical History Surgical History (Updated 08/21/23 @ 13:35 by Aleta Badillo RN) History of ankle surgery H/O hernia repair Hx laparoscopic cholecystectomy History of esophagogastroduodenoscopy (EGD) H/O colonoscopy History of coronary artery stent placement Social History Social History Housing: Apartment Are you a primary career professional to a significant other at home: No Do you presently have visiting nurse or other home services: No Alcohol intake: former Year quit: 2019 Patient Tobacco Use Status: Current everyday Tobacco user Tobacco use type: Cigarette Cigarettes Per Day: 6 Years Smoked: 25 +/- e-Cigarette/Vaping Use: Never Used Second Hand Smoke Exposure: No Advance Directives: No Advance Directives Information Provided: Yes service: No Current occupational status: retired Cognitive needs: No Hearing needs: No Vision needs: Yes Meds Allergies Allergy/AdvReac Type Severity Reaction Status Date / Time lactose [LACTOSE] Allergy Intermediate DIARRHEA Verified 08/21/23 13:39 amlodipine Allergy Unknown Unknown Verified 07/25/23 16:08 famotidine Allergy Unknown Unknown Verified 07/25/23 16:08 metoprolol Allergy Unknown Unknown Verified 07/25/23 16:08 Home Medications Medication Instructions Recorded Confirmed Last Taken Type clotrimazole 1 % topical cream 1 appl topical BID 03/17/23 08/21/23 Unknown History fluconazole 100 mg tablet 100 mg PO DAILY 03/17/23 08/21/23 Unknown History Exam Airway Mallampati Class: II TM Dist: >3cm Neck ROM: Full Denture: Upper and Lower Heart: rrr Lungs: cta Assessment and Plan Assessment Anesthesia Assessment: Anesthesia Plan Discussed Final Anesthetic Review Family History of Problems with Anesthesia: No NPO: Yes ASA Class: III Final Preanesthetic Review: No Changes in Pt Med Stat, Meds/Allgs Chart Reviewed and Consent Obtained/Reviewed Patient Risk: Intermediate Procedure Risk: Low Anesthetic Plan Anesthetic Plan: MAC: Disposition: Standard PACU
[2023-08-23 11:53] VITALS: BMI 20.5
[2023-08-23 11:57] VITALS: BP 125/80; PULSE 91; RESP 17; TEMP 36.6; O2SAT 96; BMI 20.5
--- NOTE | 2023-08-23 12:00 | P.HPSUR_ITS ---
Pre-Procedural Eval Section A - 24 Hr Update-Section A only Date of Service: 08/23/23 Section B - Complete if H&P > 30 days Chief Complaint: screening Relevant Family History (Specify if Yes): No Relevant Social History: None Present Medications: see Short Stay Collaborative assessment Medical History: Significant History (Dysphagia Right groin pain Subdural bleeding Compression fracture of T4 vertebra H. pylori duodenitis BPH (benign prostatic hyperplasia) Hypertension Anxiety and depression Post herpetic neuralgia CPA (cerebellopontine angle) tumor Trigeminal neuralgia Peripheral vascular disease GERD (gastroesophag) History of Previous Operations: Relevant previous surgery/procedure and date(s) ( History of ankle surgery H/O hernia repair Hx laparoscopic cholecystectomy History of esophagogastroduodenoscopy (EGD) H/O colonoscopy History of coronary artery stent placement) Allergies: Allergies Allergy/AdvReac Type Severity Reaction Status Date / Time lactose [LACTOSE] Allergy Intermediate DIARRHEA Verified 08/21/23 13:39 amlodipine Allergy Unknown Unknown Verified 07/25/23 16:08 famotidine Allergy Unknown Unknown Verified 07/25/23 16:08 metoprolol Allergy Unknown Unknown Verified 07/25/23 16:08 Review of Systems Sugical H&P ROS: Negative: Constitution, Cardiovascular, Respiratory, Neurological, Psychiatric, Hem-Onc, Allergic/Immunologic, Gastrointestinal, Genitourinary, Musculoskeletal, Integumentary, Endocrine and Eyes/Ears/Nose /Throat Exam Surgical H&P Exam: Normal: HEENT, Normal: Heart, Normal: Lungs, Normal: Extremities, Normal: Abdomen, Normal: Skin and Normal: Neurological Plan Diagnosis/Plan: Unchanged I have reviewed the history and physical and performed a pertinent physical examination on my patient. No changes have occurred unless specified. Time Spent With Patient Time: Total time managing care of this patient today ____ minutes.
--- NOTE | 2023-08-23 12:06 | W.PM.OPN ---
Operative Note Operative Note Date of Service: 08/23/23 Narrative: Operative Information Procedure Description: Colonoscopy Indication: screening Anesthesia: MAC COLONOSCOPY Instrument: Olympus variable stiffness pediatric scope 190L Colonoscopy Monitoring: Vital signs and clinical assessment, continuous EKG monitoring, Pulse oximetry, Carbon Dioxide monitoring and blood pressure monitoring were done throughout the procedure. Colon withdrawal time was 7 minutes. Procedure: The patient was placed in the left lateral decubitis position and pre-procedure medications were administered. After a digital rectal examination of the ano-rectum, the video colonoscope was inserted into the rectum and advanced through the colon to the cecum/TI. The colonoscope was slowly withdrawn in a retrograde panoramic fashion and the colon mucosa was carefully examined including a retroflexed view of the rectum. Findings and interventions are described below. Procedure Difficulty: easy Findings: Terminal Ileum-normal Cecum: 6-7 mm sessile polyp removed with cold forceps Ascending Colon: few diverticula noted Transverse Colon - x 2 sessile polyps 6-8 mm removed with cold snare Descending Colon:normal Sigmoid Colon: moderate diverticulosis Rectum: Retroflexion with medium sized internal hemorrhoids, grade I Anorectum - normal Colon preparation: [place] Bowel Preparation Scale Right colon; 3 Transverse colon: 2 Left colon; 3 (0 = Unprepared colon segment with mucosa not seen due to solid stool that cannot be cleared. 1 = Portion of mucosa of the colon segment seen, but other areas of the colon segment not well seen due to staining, residual stool and/or opaque liquid. 2 = Minor amount of residual staining, small fragments of stool and/or opaque liquid, but mucosa of colon segment seen well. 3 = Entire mucosa of colon segment seen well with no residual staining, small fragments of stool or opaque liquid) Impression and Post Procedure Diagnosis: polyps internal hemorrhoids diverticular disease Plan: High fiber diet leaflet Avoid straining at stool, epsom salts and sitz bath, anusol supps or cream Repeat Colonoscopy in 5 years if health allows or earlier if clinically indicated, otherwise this would be his last screening Above findings were reviewed with the patient and relevant handouts were provided if indicated.
[2023-08-23] MEDS: Lactated Ringers 1,000 ML 100 ML IVCONT (12:11)
[2023-08-23 12:41] VITALS: BP 116/59; PULSE 84; RESP 16; TEMP 36.1; O2SAT 98
[2023-08-23 12:50] VITALS: BP 126/56; PULSE 99; RESP 16; O2SAT 99
[2023-08-23 12:55] VITALS: BP 102/46; PULSE 100; RESP 16; O2SAT 99
[2023-08-23 13:03] VITALS: BP 120/66; PULSE 100; RESP 16; TEMP 36.1; O2SAT 97
== END 2023-08-23 13:32 | disposition home or self-care (01) ==
PROVIDERS: PCP Internal Medicine; Visit Provider Internal Medicine Gastroenterology
PROC: 0DJD8ZZ Inspection of Lower Intestinal Tract, Via Natural or Artificial Opening Endoscopic (ICD-10-PCS; CPT 45378; principal; 2023-08-23 13:10)
DX: Z12.11 Encounter for screening for malignant neoplasm of colon (principal); D12.0 Benign neoplasm of cecum; D12.3 Benign neoplasm of transverse colon; K57.30 Diverticulosis of large intestine without perforation or abscess without bleeding; K64.0 First degree hemorrhoids; I10 Essential (primary) hypertension; E78.00 Pure hypercholesterolemia, unspecified; Z79.82 Long term (current) use of aspirin; Z79.02 Long term (current) use of antithrombotics/antiplatelets; Z79.899 Other long term (current) drug therapy
CPT/HCPCS: 45385; 45380; 88305; J2704

== ENCOUNTER → 2023-08-23 11:16 | Outpatient (BNV) | payer OTHER, SELFPAY | PROVIDERS: PCP Internal Medicine; Visit Provider Internal Medicine Gastroenterology | DX: Z12.11 Encounter for screening for malignant neoplasm of colon (principal); D12.0 Benign neoplasm of cecum; D12.3 Benign neoplasm of transverse colon; K57.30 Diverticulosis of large intestine without perforation or abscess without bleeding; K64.0 First degree hemorrhoids | CPT/HCPCS: 45380; 45385 ==

== ENCOUNTER 2023-09-04 11:00 | Outpatient (AMB) | payer OTHER, SELFPAY ==
--- NOTE | 2023-09-04 11:12 | A.OFFVIS_ITS ---
Intake Vital Signs 09/04/23 11:15 Height 5 ft 4 in Weight 123 lb 7.342 oz BMI 21.2 BP 118/56 L Blood Pressure Location Lt brachial Position Sitting Pulse 77 Intake Visit Reasons: s/p colon Intake Note: Enrico presents in the office as a follow up colonoscopy. CC: when he eats he gets the foods stuck in his stomach. The only thing that seems to help him is MyLanta Roving Machine Operator Required: Yes Roving Machine Operator Name: [id number] Michael Allergies lactose [LACTOSE] Allergy (Intermediate, Verified 09/04/23 11:13) DIARRHEA amlodipine Allergy (Unknown, Verified 09/04/23 11:13) Unknown famotidine Allergy (Unknown, Verified 09/04/23 11:13) Unknown metoprolol Allergy (Unknown, Verified 09/04/23 11:13) Unknown HPI s/p colon HPI Details 78 yr old m w/ hx of oral pharyngeal dys phagia, submandibular gland excision, and acoustic neuroma here for f/u RECAP: PCP referred for colonoscopy he has no GI symptoms he has no dysphagia, sometimes chokes with liquids he has no blood in stool no change in stool consistency luis alberto had CRC aged 47 he cant; recall his last colonoscopy, >10 yrs ago saw ENT and had botox etc for vocal cord issues MBS with pooling of secretions in vallecula EGD with me 2021- dilation with tear and heme LES Colonsocopy: inflammatory and tubular adenoma removed INTERIM: he has been doing well he had constipation and some dyspepsia, he feels much better with mylanta, sorted everything out EXAM: GENERAL: The patient is well developed and nontoxic. VITAL SIGNS:see workflow HEENT: Nonicteric sclerae, PERRLA, EOMI. Oropharynx clear. Moist mucous membranes. Conjunctivae appear well perfused. No thyroid mass. CHEST: Chest wall is nontender. HEART: Regular rate and rhythm without murmurs. LUNGS: Clear to auscultation bilaterally. ABDOMEN: Soft, positive bowel sounds, nontender, no organomegaly.no flank tenderness SKIN: No rash, no excessive bruising, petechiae, or purpura. NEUROLOGIC: Cranial nerves II-XII intact without motor/sensory deficit. A/P: 1/Referred for colonoscopy--average risk --tubular adenoma removed 2/ Salivation and oral pharyngeal dyspha ingrid --no issues since taking mylanta PLAN: 1/ if worsening dysphagia, EGD 2/ if he remains healthy and wishes we c an repeat colo in 5 yrs otherwise this would be his last screening colo [facility] Medical History Dysphagia Right groin pain Subdural bleeding Compression fracture of T4 vertebra H. pylori duodenitis BPH (benign prostatic hyperplasia) Hypertension Anxiety and depression Post herpetic neuralgia CPA (cerebellopontine angle) tumor Trigeminal neuralgia Peripheral vascular disease GERD (gastroesophageal reflux disease) Ascending aorta dilatation Hypercholesterolemia Impaired fasting glucose Coronary artery disease Surgical History History of ankle surgery H/O hernia repair Hx laparoscopic cholecystectomy History of esophagogastroduodenoscopy (EGD) H/O colonoscopy History of coronary artery stent placement Family History Father No problems noted. Mother No problems noted. Brother No problems noted. Sister No problems noted. Son No problems noted. Daughter No problems noted. Social History Housing: Apartment Are you a primary customer care representative to a significant other at home: No Do you presently have visiting nurse or other home services: No Alcohol intake: former Year quit: 2019 Patient Tobacco Use Status: Former Tobacco user Quit Date: 7 ndays ago Tobacco use type: Cigarette Cigarettes Per Day: 6 Years Smoked: 25 +/- e-Cigarette/Vaping Use: Never Used Second Hand Smoke Exposure: No service: No Current occupational status: retired Cognitive needs: No Hearing needs: No Vision needs: Yes Physical Exam Vital Signs: Last Vital Signs Pulse 77 09/04/23 11:15 BP 118/56 L 09/04/23 11:15 BMI result Body Mass Index 21.2 Assessment & Plan Assessment & Plan (1) Tubular adenoma: Code(s): D36.9 - Benign neoplasm, unspecified site Plan A/P: 1/Referred for colonoscopy--average risk--tubular adenoma removed 2/ Salivation and oral pharyngeal dysphagia --no issues since taking mylanta PLAN: 1/ if worsening dysphagia, EGD--cont mylanta prn meantime 2/ if he remains healthy and wishes we can repeat colo in 5 yrs otherwise this would be his last screening colo Medications: New alum-mag hydroxide-simeth 400-400-40 mg/5 mL (Mylanta Maximum Strength) 10 mL PO TID PRN 3,000 mL 3RF indigestion Coding Level of Care Code Est Pt Level 3 (85198) Diagnoses Tubular adenoma D36.9
[2023-09-04 11:15] VITALS: BP 118/56; PULSE 77; BMI 21.2
== END 2023-09-04 12:09 | disposition home or self-care (01) ==
PROVIDERS: PCP Internal Medicine; Visit Provider Internal Medicine Gastroenterology
DX: D36.9 Benign neoplasm, unspecified site (principal)
CPT/HCPCS: 99213

== ENCOUNTER → 2023-09-04 11:00 | Outpatient (BNVA) | payer OTHER, SELFPAY | PROVIDERS: PCP Internal Medicine; Visit Provider Internal Medicine Gastroenterology | DX: D36.9 Benign neoplasm, unspecified site (principal) | CPT/HCPCS: 99212 ==

== ENCOUNTER 2023-09-06 13:57 | Outpatient (AMB) | payer OTHER, SELFPAY ==
[2023-09-06 14:01] VITALS: BP 137/72; PULSE 58; BMI 21.3
--- NOTE | 2023-09-06 14:01 | A.OFFVIS_ITS ---
Intake Vital Signs 09/06/23 14:01 Height 5 ft 4 in Weight 124 lb BMI 21.3 BP 137/72 Blood Pressure Location Lt brachial Position Sitting Pulse 58 Intake Visit Reasons: Umbilical hernia Intake Note: This patient presents for an assessment for an umbilical hernia. Pt c/o; reports no pain, reports no bulge, left groin. Dairy Husbandry Teacher Required: Yes Dairy Husbandry Teacher Language: Template Maker Name: Jose Juan Information Interpreted: non-clinical & clinical Accompanied by: Self / Same As Patient Allergies lactose [LACTOSE] Allergy (Intermediate, Verified 09/06/23 14:11) DIARRHEA amlodipine Allergy (Unknown, Verified 09/06/23 14:11) Unknown famotidine Allergy (Unknown, Verified 09/06/23 14:11) Unknown metoprolol Allergy (Unknown, Verified 09/06/23 14:11) Unknown Medication List - Last Reconciled 09/06/23 by Brandon Booth MD alum-mag hydroxide-simeth 400-400-40 mg/5 mL (Mylanta Maximum Strength) 10 mL PO TID PRN aspirin 81 mg PO DAILY atorvastatin 80 mg PO DAILY chlorthalidone 25 mg PO DAILY clotrimazole 1% 1 appl topical BID fluconazole 100 mg PO DAILY gabapentin 300 mg PO DAILY lisinopril 40 mg PO DAILY loratadine 10 mg PO DAILY metoprolol tartrate 25 mg PO DAILY nystatin 1,000,000 units PO BID paroxetine HCl 10 mg PO DAILY polyethylene glycol 3350 (Miralax) 17 grams PO DAILY HPI Umbilical hernia HPI Details 78-year-old male referred for a left ing uinal hernia. He says that he has noticed this lump on his left groin for a few months. This seems to be reducible. He denies any other complaints. He denies GI issues. He does state that he thinks that the lump became obvious when he was straining in the bathroom. [facility] Medical History Dysphagia Right groin pain Subdural bleeding Compression fracture of T4 vertebra H. pylori duodenitis BPH (benign prostatic hyperplasia) Hypertension Anxiety and depression Post herpetic neuralgia CPA (cerebellopontine angle) tumor Trigeminal neuralgia Peripheral vascular disease GERD (gastroesophageal reflux disease) Ascending aorta dilatation Hypercholesterolemia Impaired fasting glucose Coronary artery disease Surgical History History of ankle surgery H/O hernia repair Hx laparoscopic cholecystectomy History of esophagogastroduodenoscopy (EGD) H/O colonoscopy History of coronary artery stent placement Family History Father No problems noted. Mother No problems noted. Brother No problems noted. Sister No problems noted. Son No problems noted. Daughter No problems noted. Social History Housing: Apartment Are you a primary home care and home health aides teacher to a significant other at home: No Do you presently have visiting nurse or other home services: No Alcohol intake: former Year quit: 2019 Patient Tobacco Use Status: Former Tobacco user Quit Date: 7 ndays ago Tobacco use type: Cigarette Cigarettes Per Day: 6 Years Smoked: 25 +/- e-Cigarette/Vaping Use: Never Used Second Hand Smoke Exposure: No service: No Current occupational status: retired Cognitive needs: No Hearing needs: No Vision needs: Yes Review of Systems Const Denies chills and Denies fever(s) Card Denies chest pain, Denies dyspnea and Denies dyspnea on exertion Resp Denies cough, Denies dyspnea and Denies dyspnea on exertion GI Denies hematochezia and Denies change in bowel habits Denies hematuria and Denies difficulty urinating Musc Denies back pain and Denies limited range of motion Neuro Denies focal weakness and Denies convulsions Psych Denies depression and Denies mood swings Physical Exam Vital Signs: Last Vital Signs Pulse 58 09/06/23 14:01 BP 137/72 09/06/23 14:01 BMI result Body Mass Index 21.3 Const General: comfortable and no acute distress Orientation/consciousness: patient oriented x3 Neck Neck: Yes no lymphadenopathy Resp Auscultation: clear to auscultation bilaterally Cardio Rhythm: regular rhythm GI Other: Left inguinal hernia noticeable with Valsalva, easily reducible, nontender Palpation (GI): Soft to palpation, nontender and no guarding Neuro General: patient oriented x3 Assessment & Plan Assessment & Plan (1) Left inguinal hernia: Comment: Inguinal hernia repair Dr. Booth 2010 Code(s): K40.90 - Unilateral inguinal hernia, without obstruction or gangrene, not specified as recurrent Plan: He has a left inguinal hernia, obvious with Valsalva. He denies any symptoms with this. He denies any pain or tenderness. Review of his records show that he had repair of this left inguinal hernia with mesh in 2010. This is therefore a recurrent hernia I reviewed with him the technique of repair of the left inguinal hernia with mesh. I discussed the risks including but not limited to bleeding, infections, bowel injury, recurrence, postop pain, as well as the benefits and alternatives. He says he would like to speak to his primary care physician for now and see if he healthy enough to have surgery. He states that the hernia does not bother him at this time. Coding Level of Care Code New Pt Level 3 (79167) Diagnoses Left inguinal hernia K40.90
== END 2023-09-06 14:30 | disposition home or self-care (01) ==
PROVIDERS: PCP Internal Medicine; Referring Provider Internal Medicine; Visit Provider Surgery
DX: K40.90 Unilateral inguinal hernia, without obstruction or gangrene, not specified as recurrent (principal)
CPT/HCPCS: 99213

== ENCOUNTER → 2023-09-06 13:57 | Outpatient (BNVA) | payer OTHER, SELFPAY | PROVIDERS: PCP Internal Medicine; Referring Provider Internal Medicine; Visit Provider Surgery | DX: K40.90 Unilateral inguinal hernia, without obstruction or gangrene, not specified as recurrent (principal) | CPT/HCPCS: 99212 ==

== ENCOUNTER 2023-09-25 14:10 | Outpatient (AMB) | payer OTHER, SELFPAY ==
[2023-09-25 14:16] VITALS: BP 110/56; PULSE 50; BMI 21.9
--- NOTE | 2023-09-25 14:16 | A.OFFVIS_ITS ---
Intake Vital Signs 09/25/23 14:16 Height 5 ft 4 in Weight 127 lb 6.835 oz BMI 21.9 BP 110/56 L Blood Pressure Location Lt brachial Position Sitting Pulse 50 Intake Visit Reasons: 1 year follow up Intake Note: pt its here for his 1 yr f/up/ pt states that he its doing fine. 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: No Accompanied by: Self / Same As Patient Allergies lactose [LACTOSE] Allergy (Intermediate, Verified 09/06/23 14:11) DIARRHEA amlodipine Allergy (Unknown, Verified 09/06/23 14:11) Unknown famotidine Allergy (Unknown, Verified 09/06/23 14:11) Unknown metoprolol Allergy (Unknown, Verified 09/06/23 14:11) Unknown Medication List - Last Reconciled 09/25/23 by Nj Pringle MD alum-mag hydroxide-simeth 400-400-40 mg/5 mL (Mylanta Maximum Strength) 10 mL PO TID PRN aspirin 81 mg PO DAILY atorvastatin 80 mg PO DAILY chlorthalidone 25 mg PO DAILY clotrimazole 1% 1 appl topical BID fluconazole 100 mg PO DAILY gabapentin 300 mg PO DAILY lisinopril 40 mg PO DAILY loratadine 10 mg PO DAILY paroxetine HCl 10 mg PO DAILY polyethylene glycol 3350 (Miralax) 17 grams PO DAILY HPI HPI Comments History of Present Illness Details Very pleasant 78-year-old gentleman here for follow-up. He has background history of coronary artery disease underwent PCI in 2016 at [facility]. He has no chest discomfort or shortness of breath. His main complaint is excessive salivation. He has been on glycopyrolate and also had Botox injected in hissalivary glands in [place]. He continues to have significant excessive salivation as well as dysphagia. He is saying he is unable to swallow solid food and he had to eat pureed food. He will going to [place] for f/u. Blood pressure is better controlled. He was started on amlodipine but it appears he has been off of it and there is an unknown allergy listed under he has allergies to amlodipine now. He does not remember why it was stopped. Any case blood pressure is better. 09/25/23: He returns for follow-up. He is denying any chest discomfort shortness of breath. He was going to [place] for excessive salivation and was getting Botox injections but he has stopped doing that because there was no improvement in his hypersalivation. He was previously on metoprolol but it appears this has been discontinued. He had somewhat low blood pressure on previous visit and this was recommended to stop metoprolol in case his blood pressure is low. He is saying occasionally gets dizzy. He is saying that he eats small meals. I have advised him to keep an eye on his intake specially fluids. [facility] Medical History Dysphagia Right groin pain Subdural bleeding Compression fracture of T4 vertebra H. pylori duodenitis BPH (benign prostatic hyperplasia) Hypertension Anxiety and depression Post herpetic neuralgia CPA (cerebellopontine angle) tumor Trigeminal neuralgia Peripheral vascular disease GERD (gastroesophageal reflux disease) Ascending aorta dilatation Hypercholesterolemia Impaired fasting glucose Coronary artery disease Surgical History History of ankle surgery H/O hernia repair Hx laparoscopic cholecystectomy History of esophagogastroduodenoscopy (EGD) H/O colonoscopy History of coronary artery stent placement Family History Father No problems noted. Mother No problems noted. Brother No problems noted. Sister No problems noted. Son No problems noted. Daughter No problems noted. Social History Housing: Apartment Are you a primary residential caregiver to a significant other at home: No Do you presently have visiting nurse or other home services: No Alcohol intake: former Year quit: 2019 Patient Tobacco Use Status: Former Tobacco user Quit Date: 7 ndays ago Tobacco use type: Cigarette Cigarettes Per Day: 6 Years Smoked: 25 +/- e-Cigarette/Vaping Use: Never Used Second Hand Smoke Exposure: No service: No Current occupational status: retired Cognitive needs: No Hearing needs: No Vision needs: Yes Review of Systems Const Denies chills, Denies fatigue, Denies fever(s), Denies frequent falls, Denies weakness, Denies weight gain and Denies weight loss ENT Denies dizziness Card Denies chest pain, Denies leg edema, Denies lightheadedness, Denies palpitations, Denies dyspnea and Denies dyspnea on exertion Resp Denies cough, Denies dyspnea and Denies dyspnea on exertion GI Denies hematochezia Musc Denies abnormal gait, Denies muscle weakness, Denies numbness, Denies radiating pain into limb and Denies tingling Neuro Denies abnormal gait, Denies dizziness, Denies frequent falls, Denies numbness, Denies tingling and Denies weakness Endo Denies fatigue and Denies palpitations Physical Exam Vital Signs: Last Vital Signs Pulse 50 09/25/23 14:16 BP 110/56 L 09/25/23 14:16 BMI result Body Mass Index 21.9 GENERAL APPEARANCE: in no acute distress, well developed, well nourished. NECK/THYROID: no carotid bruit, no jugular venous distention. SKIN: no suspicious lesions, warm and dry. HEART: no murmurs, regular rate and rhythm, S1, S2 normal. Bradycardic. LUNGS: clear to auscultation bilaterally. ABDOMEN: normal, bowel sounds present, soft, nontender, nondistended. EXTREMITIES: no clubbing, cyanosis, or edema. PERIPHERAL PULSES: equal. NEUROLOGIC: nonfocal, alert and oriented. PSYCH: mood/affect full range. Office Procedures EKG Details: Sinus bradycardia 50 beats per minute, nonspecific ST changes, QTC 390 milliseconds [id number], Complete Assessment & Plan Assessment & Plan (1) Coronary artery disease: Comment: NSTEMI with drug-eluting stent February 2016 Code(s): I25.10 - Atherosclerotic heart disease of [place] coronary artery without angina pectoris Qualifiers: Coronary Disease-Associated Artery/Lesion type: [place] artery [place] vs. transplanted heart: [place] heart Associated angina: without angina Qualified Code(s): I25.10 - Atherosclerotic heart disease of [place] coronary artery without angina pectoris (2) Hypertension: Code(s): I10 - Essential (primary) hypertension Qualifiers: Hypertension type: essential hypertension Qualified Code(s): I10 - Essential (primary) hypertension Plan Pleasant 78 year gentleman who is here for follow-up. He has known history of coronary disease with previous PCI in 2016. He has stable angina. Blood pressure is reasonably controlled on lisinopril and chlorthalidone. M etoprolol probably was stopped because of bradycardia as his heart rate is in 50s despite being off the metoprolol. Same medications for now. See us back in 1 year. Thank you for allowing me to participate in the care of your patient. Please feel free to contact me if you have any questions. Coding Level of Care Code Est Pt Level 3 (96638) Diagnoses Coronary artery disease involving [place] coronary artery of [place] heart without angina pectoris I25.10 Coronary Disease-Associated Artery/Lesion type: [place] artery [place] vs. transplanted heart: [place] heart Associated angina: without angina Essential hypertension I10 Hypertension type: essential hypertension CPT Codes EKG - CPT: 68965-[id number], Complete ([id number])
== END 2023-09-25 14:37 | disposition home or self-care (01) ==
PROVIDERS: Visit Provider Internal Medicine Cardiovascular Disease
DX: I25.10 Atherosclerotic heart disease of native coronary artery without angina pectoris (principal); I10 Essential (primary) hypertension
CPT/HCPCS: 93010; 99213

== ENCOUNTER → 2023-09-25 14:10 | Outpatient (BNVA) | payer OTHER, SELFPAY | PROVIDERS: Visit Provider Internal Medicine Cardiovascular Disease | DX: I25.10 Atherosclerotic heart disease of native coronary artery without angina pectoris (principal); I10 Essential (primary) hypertension | CPT/HCPCS: 93005; 99212 ==

== ENCOUNTER 2023-11-20 14:03 | Outpatient (AMB) | payer OTHER, SELFPAY ==
[2023-11-20 14:06] VITALS: BP 122/70; PULSE 59; O2SAT 95; BMI 21.5
--- NOTE | 2023-11-20 14:06 | MHC.PC.OV ---
Vital Signs 11/20/23 14:06 Height 5 ft 4 in Weight 125 lb BMI 21.5 BP 122/70 Blood Pressure Location Lt brachial Position Standing Pulse 59 Pulse Source Pulse Oximeter Pulse Oximetry (%) 95 Oxygen Delivery Method Room Air Intake Visit Reasons: constipation/discuss upcoming hernia surgery Allergies lactose [LACTOSE] Allergy (Intermediate, Verified 11/20/23 14:07) DIARRHEA amlodipine Allergy (Unknown, Verified 11/20/23 14:07) Unknown famotidine Allergy (Unknown, Verified 11/20/23 14:07) Unknown metoprolol Allergy (Unknown, Verified 11/20/23 14:07) Unknown Tobacco use date assessed: 07/25/23 Fall risk assessment: No Falls in past year Last assessed Fall Risk: 11/20/23 Dental Screening Dental Screen Date: 11/20/23 Did you have a dental visit in the last 12 months?: No Did you have a dental problem in the last 6 months where you did not have access to dental care?: No Was dental information given to patient?: No HPI constipation/discuss upcoming hernia surgery HPI Details 78-year-old male with coronary artery disease hypercholesterolemia GERD hypertension CPA angle tumor impaired glucose tolerance last seen in July 2023. Patient has colonoscopy done in August 2023 review of the notes patient did see the neurosurgeon regarding right vestibular schwannoma the slightly decreased in size now compared to 2019 schwannoma size 1.5 x 1.2 x 1.1 cm and no need for neurosurgical treatment. Patient also followed up with Cardiology 2016 blood pressure controlled only by lisinopril and chlorthalidone. Patient has a history of left inguinal hernia has had repair of this in 2010 planned repair. [facility] Medical History Dysphagia Right groin pain Subdural bleeding Compression fracture of T4 vertebra H. pylori duodenitis BPH (benign prostatic hyperplasia) Hypertension Anxiety and depression Post herpetic neuralgia CPA (cerebellopontine angle) tumor Trigeminal neuralgia Peripheral vascular disease GERD (gastroesophageal reflux disease) Ascending aorta dilatation Hypercholesterolemia Impaired fasting glucose Coronary artery disease Surgical History History of ankle surgery H/O hernia repair Hx laparoscopic cholecystectomy History of esophagogastroduodenoscopy (EGD) H/O colonoscopy History of coronary artery stent placement Family History Father No problems noted. Mother No problems noted. Brother No problems noted. Sister No problems noted. Son No problems noted. Daughter No problems noted. Social History Housing: Apartment Are you a primary care director to a significant other at home: No Do you presently have visiting nurse or other home services: No Alcohol intake: former Year quit: 2019 Patient Tobacco Use Status: Former Tobacco user Quit Date: 7 ndays ago Tobacco use type: Cigarette Cigarettes Per Day: 6 Years Smoked: 25 +/- e-Cigarette/Vaping Use: Never Used Second Hand Smoke Exposure: No service: No Current occupational status: retired Cognitive needs: No Hearing needs: No Vision needs: Yes Questionnaire PHQ-9 Over the last 2 weeks, how often have you been bothered by any of the following problems? 1. Little interest or pleasure in doing things: not at all 2. Feeling down, depressed, or hopeless: not at all 3. Trouble falling or staying asleep, or sleeping too much: several days 4. Feeling tired or having little energy: not at all 5. Poor appetite or overeating: not at all 6. Feeling bad about yourself - or that you are a failure or have let yourself or your family down: not at all 7. Trouble concentrating on things, such as reading the newspaper or watching television: not at all 8. Moving or speaking so slowly that other people could have noticed. Or the opposite - being so fidgety or restless that you have been moving around a lot more than usual: not at all 9. Thoughts that you would be better off or of hurting yourself in some way: not at all Total score: 1 Depression Screening Interpretation: Negative Depression Screening Done: Yes Source: Developed by Drs. Dante Lambert, Gypsy Eugene, Jg Weber and colleagues, with an educational rut from [employer]. Thrive Questionnaire Date Thrive assessed: 11/20/23 I am a: Patient What is your living situation today?: I have a steady place to live Within the past 12 months, did the food you bought not last and you didn't have the money to get more?: Never true Within the past 12 months, did you worry whether your food would run out before you got money to buy more?: Never true Do you have trouble paying for medicines?: No Do you have trouble getting transportation to medical appointments?: No Do you have trouble paying your heating and electricity bill?: No Do you have trouble taking care of your child, family member or friend?: No Do you have trouble with day-to-day activities such as bathing, preparing meals, shopping, managing finances, etc.?: No Are you currently unemployed and looking for a job?: No Are you interested in more education?: No Currently or been in a relationship where the following occur: no concerns reported THRIVE Score: 0 AUDIT C Alcohol Use Questionnaire (AUDIT-C) 1. How often do you have a drink containing alcohol?: Never 2. How many drinks containing alcohol do you have on a typical day when you are drinking?: 1 or 2 (0) 3. How often do you have six or more drinks on one occasion?: Never Total Score: 0 LEMUEL-7 AMB Questionnaire LEMUEL-7 Date LEMUEL - 7 assessed: 11/20/23 Feeling nervous, anxious, or on edge: 0 = Not at all Not being able to stop or control worryin = Not at all Worrying too much about different things: 0 = Not at all Trouble relaxin = Not at all Being so restless that it is hard to sit still: 0 = Not at all Becoming easily annoyed or irritable: 0 = Not at all Feeling afraid as if something awful might happen: 0 = Not at all Total LEMUEL-7 score (0-4 normal; 5-9 mild; 10-14 moderate; 15-21 severe): 0 Source: Developed by Drs. Dante Lambert, Gypsy Eugene, Jg Weber and colleagues, with an educational rut from [employer]. Physical exam (Primary Care) Vital Signs: Last Vital Signs Pulse 59 11/20/23 14:06 BP 122/70 11/20/23 14:06 Pulse Ox 95 11/20/23 14:06 Oxygen Delivery Method Room Air 11/20/23 14:06 BMI result Body Mass Index 21.5 Tobacco/Smoking Status: Tobacco use Status Tobacco use date assessed 07/25/23 11/20/23 14:09 Patient Tobacco Use Status Former Tobacco user 11/20/23 14:09 Tobacco use type Cigarette 11/20/23 14:09 e-Cigarette/Vaping Use Never Used 11/20/23 14:09 PHQ-9: PHQ-9 Score PHQ-9: Total score 1 11/20/23 14:09 Depression Screening Interpretation: Negative Thrive Assessment: Date of Thrive Assessment Date Thrive assessed 11/20/23 11/20/23 14:09 Currently or been in a relationship where the following occur: no concerns reported Const General: alert; No acute distress Eyes Conjunctivae: conjunctivae normal Resp Auscultation: clear to auscultation bilaterally Cardio Rate: regular rate Rhythm: regular rhythm GI Inspection: Yes normal to inspection Extrem General: Yes normal to inspection and No edema Assessment and Plan Assessment & Plan (1) CPA (cerebellopontine angle) tumor: Comment: October 2017, March 2019, 04/2023 No acute intracranial abnormalities. 2. Mild underlying microangiopathy and generalized cerebral volume loss. 3. A mass along the right cerebellopontine angle suggestive of an underlying schwannoma have mildly decreased in size compared to exam from 2020. 4. No additional abnormal intracranial enhancement. 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 No surgical intervention and will continue to monitor. (2) Hypertension: Code(s): I10 - Essential (primary) hypertension Qualifiers: Hypertension type: essential hypertension Qualified Code(s): I10 - Essential (primary) hypertension Plan: Continue with blood pressure medication. Decrease salt intake and exercise presently on lisinopril 40 mg once a day. Question of chlorthalidone not on my list. (3) GERD (gastroesophageal reflux disease): Code(s): K21.9 - Gastro-esophageal reflux disease without esophagitis Plan: Avoid the foods that causes that usually spicy foods, tomato products, juices, coffee, soda and foods that your sensitive to. After eating do not lie down, allow 3-4 hours before in lie down. And keep the head of bed above 30 degrees to avoid the acid from going up. (4) Hypercholesterolemia: Code(s): E78.00 - Pure hypercholesterolemia, unspecified Plan: Avoid fried foods, chicken skin, eggs, butter margarine, pastries and meat. Be it pork or beef they have a lot of cholesterol LDL goal of less than 70 and triglyceride of less than 150. January 2023 last blood work will need new blood work (5) Coronary artery disease: Comment: NSTEMI with drug-eluting stent February 2016 Code(s): I25.10 - Atherosclerotic heart disease of [place] coronary artery without angina pectoris Qualifiers: Coronary Disease-Associated Artery/Lesion type: [place] artery [place] vs. transplanted heart: [place] heart Associated angina: without angina Qualified Code(s): I25.10 - Atherosclerotic heart disease of [place] coronary artery without angina pectoris Plan: Control the cholesterol, weight, blood pressure continue with aspirin 81 mg once a day (6) Impaired fasting glucose: Code(s): R73.01 - Impaired fasting glucose Plan: Decrease the amount of carbohydrate intake, pasta, bread, rice and potatoes are all sugar and that is aside from all the sweet stuff, remember that fruits are good but they are Sweet also. (7) Tobacco abuse: Code(s): Z72.0 - Tobacco use Plan: Strongly advised to stop smoking (8) Generalized anxiety disorder: Comment: Declined counseling referral Code(s): F41.1 - Generalized anxiety disorder Plan: Continue with present medication (9) Left inguinal hernia: Comment: Inguinal hernia repair Dr. Booth 2010 Code(s): K40.90 - Unilateral inguinal hernia, without obstruction or gangrene, not specified as recurrent Plan: Patient has met with the surgeon and planned repair. Orders: Orders Lipid Panel Today E78.00 - Pure hypercholesterolemia, unspecified Vitamin B12 and Folate Today E78.00 - Pure hypercholesterolemia, unspecified Complete Blood Count Auto Diff Today E78.00 - Pure hypercholesterolemia, unspecified Comprehensive Met. Panel Today E78.00 - Pure hypercholesterolemia, unspecified Free T4 (Free Thyroxine) Today E78.00 - Pure hypercholesterolemia, unspecified Thyroid Stimulating Hormone Today E78.00 - Pure hypercholesterolemia, unspecified Hemoglobin A1c Today R73.01 - Impaired fasting glucose Medications: New psyllium husk (Metamucil) 0.8 grams (2 x 0.4 gram) PO BEDTIME PRN 180 caps 4RF constipation K59.00 - Constipation, unspecified Coding Level of Care Code Est Pt Level 4 (71635) Diagnoses CPA (cerebellopontine angle) tumor D33.3 Essential hypertension I10 Hypertension type: essential hypertension Gastroesophageal reflux disease without esophagitis K21.9 Hypercholesterolemia E78.00 Coronary artery disease involving [place] coronary artery of [place] heart without angina pectoris I25.10 Coronary Disease-Associated Artery/Lesion type: [place] artery [place] vs. transplanted heart: [place] heart Associated angina: without angina Impaired fasting glucose R73.01 Tobacco abuse Z72.0 Generalized anxiety disorder F41.1 Left inguinal hernia K40.90
== END 2023-11-20 14:57 | disposition home or self-care (01) ==
PROVIDERS: PCP Internal Medicine; Visit Provider Internal Medicine
DX: D33.3 Benign neoplasm of cranial nerves (principal); I10 Essential (primary) hypertension; K21.9 Gastro-esophageal reflux disease without esophagitis; E78.00 Pure hypercholesterolemia, unspecified; I25.10 Atherosclerotic heart disease of native coronary artery without angina pectoris; R73.01 Impaired fasting glucose; Z72.0 Tobacco use; F41.1 Generalized anxiety disorder; K40.90 Unilateral inguinal hernia, without obstruction or gangrene, not specified as recurrent
CPT/HCPCS: 99214

== ENCOUNTER 2023-11-30 13:13 | Outpatient (AMB) | payer OTHER, SELFPAY ==
[2023-11-30 13:54] VITALS: BP 120/63; PULSE 54; BMI 21.5
--- NOTE | 2023-11-30 13:54 | A.OFFVIS_ITS ---
Vital Signs 11/30/23 13:54 Height 5 ft 4 in Weight 124 lb 15.998 oz BMI 21.5 BP 120/63 Blood Pressure Location Rt brachial Position Sitting Pulse 54 Intake Visit Reasons: Hernia Intake Note: This patient presents for an assessment for a recurrent hernia. 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: No Accompanied by: Self / Same As Patient Allergies lactose [LACTOSE] Allergy (Intermediate, Verified 11/30/23 14:04) DIARRHEA amlodipine Allergy (Unknown, Verified 11/30/23 14:04) Unknown famotidine Allergy (Unknown, Verified 11/30/23 14:04) Unknown metoprolol Allergy (Unknown, Verified 11/30/23 14:04) Unknown Medication List - Last Reconciled 11/30/23 by Brandon Booth MD aspirin 81 mg PO DAILY gabapentin 300 mg PO DAILY lisinopril 40 mg PO DAILY paroxetine HCl 10 mg PO DAILY polyethylene glycol 3350 (Miralax) 17 grams PO DAILY psyllium husk (Metamucil) 0.8 grams (2 x 0.4 gram) PO BEDTIME PRN HPI HPI Hernia: Details: He is here for follow-up for his recurrent left inguinal hernia. I had last seen him in August, for this. He says that this does not bother him at all. He denies any pain, tenderness or significant discomfort. He has no GI complaints. [facility] Medical History Dysphagia Right groin pain Subdural bleeding Compression fracture of T4 vertebra H. pylori duodenitis BPH (benign prostatic hyperplasia) Hypertension Anxiety and depression Post herpetic neuralgia CPA (cerebellopontine angle) tumor Trigeminal neuralgia Peripheral vascular disease GERD (gastroesophageal reflux disease) Ascending aorta dilatation Hypercholesterolemia Impaired fasting glucose Coronary artery disease Surgical History History of ankle surgery H/O hernia repair Hx laparoscopic cholecystectomy History of esophagogastroduodenoscopy (EGD) H/O colonoscopy History of coronary artery stent placement Family History Father No problems noted. Mother No problems noted. Brother No problems noted. Sister No problems noted. Son No problems noted. Daughter No problems noted. Social History Housing: Apartment Are you a primary after school caregiver to a significant other at home: No Do you presently have visiting nurse or other home services: No Alcohol intake: former Year quit: 2019 Patient Tobacco Use Status: Former Tobacco user Quit Date: 7 ndays ago Tobacco use type: Cigarette Cigarettes Per Day: 6 Years Smoked: 25 +/- e-Cigarette/Vaping Use: Never Used Second Hand Smoke Exposure: No service: No Current occupational status: retired Cognitive needs: No Hearing needs: No Vision needs: Yes Review of Systems Const Denies chills and Denies fever(s) Card Denies chest pain, Denies dyspnea and Denies dyspnea on exertion Resp Denies cough, Denies dyspnea and Denies dyspnea on exertion GI Denies hematochezia and Denies change in bowel habits Denies hematuria and Denies difficulty urinating Musc Denies back pain and Denies limited range of motion Neuro Denies focal weakness and Denies convulsions Psych Denies depression and Denies mood swings Physical Exam Vital Signs: Last Vital Signs Pulse 54 11/30/23 13:54 BP 120/63 11/30/23 13:54 BMI result Body Mass Index 21.5 Const General: comfortable and no acute distress Orientation/consciousness: patient oriented x3 Neck Neck: Yes no lymphadenopathy Resp Auscultation: clear to auscultation bilaterally Cardio Rhythm: regular rhythm GI Other: Left groin inguinal hernia palpable with Valsalva, reducible, no tenderness Palpation (GI): Soft to palpation, nontender and no guarding Neuro General: patient oriented x3 Assessment & Plan Assessment & Plan (1) Left inguinal hernia: Comment: Inguinal hernia repair Dr. Booth 2010 Code(s): K40.90 - Unilateral inguinal hernia, without obstruction or gangrene, not specified as recurrent Category: Medical Plan: He has this recurrent left inguinal hernia. He says that this does not bother him at all. He says that he does not want to proceed with surgery at this time. I instructed him to monitor this and if he develops symptoms or if he changes his mind, he is welcome to come back to the office. I also advised him on the benefits of smoking cessation. Coding Level of Care Code Est Pt Level 2 (88859) Diagnoses Left inguinal hernia K40.90
== END 2023-11-30 14:36 | disposition home or self-care (01) ==
PROVIDERS: PCP Internal Medicine; Visit Provider Surgery
DX: K40.90 Unilateral inguinal hernia, without obstruction or gangrene, not specified as recurrent (principal)
CPT/HCPCS: 99212

== ENCOUNTER → 2023-11-30 13:13 | Outpatient (BNVA) | payer OTHER, SELFPAY | PROVIDERS: PCP Internal Medicine; Visit Provider Surgery | DX: K40.90 Unilateral inguinal hernia, without obstruction or gangrene, not specified as recurrent (principal) | CPT/HCPCS: 99212 ==

== ENCOUNTER 2024-02-27 16:16 | Outpatient (AMB) | payer OTHER, SELFPAY ==
[2024-02-27 16:18] VITALS: BP 116/74; PULSE 57; O2SAT 98; BMI 21.8
--- NOTE | 2024-02-27 16:18 | MHC.PC.OV ---
Vital Signs 02/27/24 16:18 Height 5 ft 4 in Weight 127 lb BMI 21.8 BP 116/74 Blood Pressure Location Lt brachial Position Sitting Pulse 57 Pulse Source Pulse Oximeter Pulse Oximetry (%) 98 Oxygen Delivery Method Room Air Intake Visit Reasons: PE Customer Solutions Specialist Required: No Accompanied by: Self / Same As Patient Allergies lactose [LACTOSE] Allergy (Intermediate, Verified 02/27/24 16:19) DIARRHEA amlodipine Allergy (Unknown, Verified 02/27/24 16:19) Unknown famotidine Allergy (Unknown, Verified 02/27/24 16:19) Unknown metoprolol Allergy (Unknown, Verified 02/27/24 16:19) Unknown Medication List - Last Reconciled 02/27/24 by Chemo Ortiz MD aspirin 81 mg PO DAILY diclofenac sodium 1% (Arthritis Pain (diclofenac)) 4 grams topical QID gabapentin 300 mg PO DAILY lisinopril 40 mg PO DAILY paroxetine HCl 10 mg PO DAILY polyethylene glycol 3350 (Miralax) 17 grams PO DAILY psyllium husk (Metamucil) 0.8 grams (2 x 0.4 gram) PO BEDTIME PRN Tobacco use date assessed: 02/27/24 Fall risk assessment: No Falls in past year Last assessed Fall Risk: 02/27/24 Dental Screening Dental Screen Date: 02/27/24 Did you have a dental visit in the last 12 months?: No Did you have a dental problem in the last 6 months where you did not have access to dental care?: No Was dental information given to patient?: No HPI PE HPI Details 79-year-old male smoker with a history of CPA tumor hypertension GERD hypercholesterolemia coronary artery disease impaired glucose tolerance with left inguinal hernia last seen in 11/27/2023 patient is here for physical exam colonoscopy up-to-date 08/29/2023. Patient did see the surgeon for the hernia inguinal hernia repair in 2010. Presently not bothering patient. L ear cannot hear. states wakes up Q 2 hours [facility] Medical History (Updated 02/27/24 @ 16:52 by Chemo Ortiz MD) Colon cancer screening Dysphagia Right groin pain Subdural bleeding Compression fracture of T4 vertebra H. pylori duodenitis BPH (benign prostatic hyperplasia) Hypertension Anxiety and depression Post herpetic neuralgia CPA (cerebellopontine angle) tumor Trigeminal neuralgia Peripheral vascular disease GERD (gastroesophageal reflux disease) Ascending aorta dilatation Hypercholesterolemia Impaired fasting glucose Coronary artery disease Surgical History History of ankle surgery H/O hernia repair Hx laparoscopic cholecystectomy History of esophagogastroduodenoscopy (EGD) H/O colonoscopy History of coronary artery stent placement Family History Father No problems noted. Mother No problems noted. Brother No problems noted. Sister No problems noted. Son No problems noted. Daughter No problems noted. Social History Housing: Apartment Are you a primary patient care technician instructor to a significant other at home: No Do you presently have visiting nurse or other home services: No Alcohol intake: former Year quit: 2019 Patient Tobacco Use Status: Former Tobacco user Tobacco use type: Cigarette Cigarettes Per Day: 6 Years Smoked: 25 +/- e-Cigarette/Vaping Use: Never Used Second Hand Smoke Exposure: No service: No Current occupational status: retired Cognitive needs: No Hearing needs: No Vision needs: Yes Questionnaire PHQ-9 Over the last 2 weeks, how often have you been bothered by any of the following problems? 1. Little interest or pleasure in doing things: not at all 2. Feeling down, depressed, or hopeless: not at all 3. Trouble falling or staying asleep, or sleeping too much: several days 4. Feeling tired or having little energy: not at all 5. Poor appetite or overeating: not at all 6. Feeling bad about yourself - or that you are a failure or have let yourself or your family down: not at all 7. Trouble concentrating on things, such as reading the newspaper or watching television: not at all 8. Moving or speaking so slowly that other people could have noticed. Or the opposite - being so fidgety or restless that you have been moving around a lot more than usual: not at all 9. Thoughts that you would be better off or of hurting yourself in some way: not at all Total score: 1 Depression Screening Interpretation: Negative Depression Screening Done: Yes Source: Developed by Drs. Danet Lambert, Gypsy Eugene, Jg Weber and colleagues, with an educational rut from [employer]. Thrive Questionnaire Date Thrive assessed: 02/27/24 I am a: Patient What is your living situation today?: I have a steady place to live Within the past 12 months, did the food you bought not last and you didn't have the money to get more?: Never true Within the past 12 months, did you worry whether your food would run out before you got money to buy more?: Never true Do you have trouble paying for medicines?: No Do you have trouble getting transportation to medical appointments?: No Do you have trouble paying your heating and electricity bill?: No Do you have trouble taking care of your child, family member or friend?: No Do you have trouble with day-to-day activities such as bathing, preparing meals, shopping, managing finances, etc.?: No Are you currently unemployed and looking for a job?: No Are you interested in more education?: No Please select the resources that you would like help with: None Currently or been in a relationship where the following occur: No concerns reported THRIVE Score: 0 AUDIT C Alcohol Use Questionnaire (AUDIT-C) 1. How often do you have a drink containing alcohol?: Never 2. How many drinks containing alcohol do you have on a typical day when you are drinking?: 1 or 2 (0) 3. How often do you have six or more drinks on one occasion?: Never Total Score: 0 LEMUEL-7 AMB Questionnaire LEMUEL-7 Date LEMUEL - 7 assessed: 02/27/24 Feeling nervous, anxious, or on edge: 0 = Not at all Not being able to stop or control worryin = Not at all Worrying too much about different things: 0 = Not at all Trouble relaxin = Not at all Being so restless that it is hard to sit still: 0 = Not at all Becoming easily annoyed or irritable: 0 = Not at all Feeling afraid as if something awful might happen: 0 = Not at all Total LEMUEL-7 score (0-4 normal; 5-9 mild; 10-14 moderate; 15-21 severe): 0 Source: Developed by Drs. Dante Lambert, Jg Almonte and colleagues, with an educational rut from [employer]. Review of Systems Const Denies poor appetite and Denies weakness Eyes Denies no additional complaints ENT Reports Normal hearing present, Denies dizziness, Denies nasal congestion, Denies tinnitus and Denies sore throat Card Denies chest pain, Denies syncope, Denies rapid heart rate and Denies dyspnea Resp Denies cough and Denies dyspnea GI Denies change in stool character, Reports constipation, Denies diarrhea, Denies nausea and Denies vomiting Denies dysuria and Denies urinary frequency Neuro Reports Normal hearing present, Denies confusion, Denies dizziness, Denies syncope and Denies weakness Psych Denies confusion Physical exam (Primary Care) Vital Signs: Last Vital Signs Pulse 57 02/27/24 16:18 BP 116/74 02/27/24 16:18 Pulse Ox 98 02/27/24 16:18 Oxygen Delivery Method Room Air 02/27/24 16:18 BMI result Body Mass Index 21.8 Tobacco/Smoking Status: Tobacco use Status Tobacco use date assessed 02/27/24 02/27/24 16:20 Patient Tobacco Use Status Former Tobacco user 02/27/24 16:20 Tobacco use type Cigarette 02/27/24 16:20 e-Cigarette/Vaping Use Never Used 02/27/24 16:20 PHQ-9: PHQ-9 Score PHQ-9: Total score 1 02/27/24 16:54 Depression Screening Interpretation: Negative Thrive Assessment: Date of Thrive Assessment Date Thrive assessed 02/27/24 02/27/24 16:20 Currently or been in a relationship where the following occur: No concerns reported Const General: No confusion Orientation/consciousness: No confusion HENMT Head: Yes normocephalic Ears: external ears normal and TM's normal bilaterally Face and sinus: Yes normal facial exam Mouth: moist mucous membranes Throat: Yes tonsils normal Eyes Conjunctivae: conjunctivae normal Pupils: Equal, round and reactive pupils present and Pupil accommodation reflex normal Direct Ophthalmoscopy: normal light reflex Neck Neck: No lymphadenopathy Thyroid: Thyroid normal Chest Chest palpation & inspection: normal inspection of the chest Resp Effort & Inspection: normal respiratory effort and no audible wheezes Auscultation: clear to auscultation bilaterally, no crackles, no wheezes and lung sounds not diminished Cardio Rate: regular rate Rhythm: regular rhythm Peripheral pulses: radial pulses present and dorsalis pedis present GI Other: Declined recent colonoscopy 08/2023 Palpation (GI): no masses Auscultation: normal bowel sounds and normoactive bowel sounds Rectal Exam - Male: Yes deferred Other: Declined Skin General skin exam: no rashes or lesions noted Rashes: no rashes Neuro General: No confusion Cranial nerves: Yes Equal, round and reactive pupils present and Yes Normal hearing present Cognition (Neuro): normal cognition Gait exam (Neuro): Normal gait present Motor exam (neuro): 5/5 motor strength present throughout Deep tendon reflexes (DTR's): Right brachioradialis reflex intensity grade: 2+, Left brachioradialis reflex intensity grade: 2+, Right patellar reflex intensity grade: 2+ and Left patellar reflex intensity grade: 2+ Extrem General: No edema Assessment and Plan Assessment & Plan (1) Annual physical exam: Code(s): Z00.00 - Encounter for general adult medical examination without abnormal findings (2) Left inguinal hernia: Comment: Inguinal hernia repair Dr. Booth 2010 Code(s): K40.90 - Unilateral inguinal hernia, without obstruction or gangrene, not specified as recurrent Plan: Since patient is asymptomatic will continue to monitor in decided no surgery. (3) CPA (cerebellopontine angle) tumor: Comment: October 2017, March 2019, 04/2023 No acute intracranial abnormalities. 2. Mild underlying microangiopathy and generalized cerebral volume loss. 3. A mass along the right cerebellopontine angle suggestive of an underlying schwannoma have mildly decreased in size compared to exam from 2020. 4. No additional abnormal intracranial enhancement. Code(s): D33.3 - Benign neoplasm of cranial nerves Plan: Continuing to monitor (4) Hypertension: Code(s): I10 - Essential (primary) hypertension Qualifiers: Hypertension type: essential hypertension Qualified Code(s): I10 - Essential (primary) hypertension Plan: Continue with blood pressure medication. Decrease salt intake and exercise on lisinopril 40 mg once a day (5) GERD (gastroesophageal reflux disease): Code(s): K21.9 - Gastro-esophageal reflux disease without esophagitis Plan: Avoid the foods that causes that usually spicy foods, tomato products, juices, coffee, soda and foods that your sensitive to. After eating do not lie down, allow 3-4 hours before in lie down. And keep the head of bed above 30 degrees to avoid the acid from going up. (6) Hypercholesterolemia: Code(s): E78.00 - Pure hypercholesterolemia, unspecified Plan: Avoid fried foods, chicken skin, eggs, butter margarine, pastries and meat. Be it pork or beef they have a lot of cholesterol LDL goal of less than 70. Patient needs to have blood work (7) Coronary artery disease: Comment: NSTEMI with drug-eluting stent February 2016 Code(s): I25.10 - Atherosclerotic heart disease of [place] coronary artery without angina pectoris Qualifiers: Associated angina: without angina Coronary Disease-Associated Artery/Lesion type: [place] artery [place] vs. transplanted heart: [place] heart Qualified Code(s): I25.10 - Atherosclerotic heart disease of [place] coronary artery without angina pectoris Plan: Control the cholesterol, weight, blood pressure, continue with aspirin 81 mg once a day (8) Impaired fasting glucose: Code(s): R73.01 - Impaired fasting glucose Plan: Decrease the amount of carbohydrate intake, pasta, bread, rice and potatoes are all sugar and that is aside from all the sweet stuff, remember that fruits are good but they are Sweet also. (9) Excessive salivation: Comment: Submandibular gland excision 05/2020 Code(s): K11.7 - Disturbances of salivary secretion (10) Tobacco abuse: Code(s): Z72.0 - Tobacco use Plan: Patient is advised strongly to stop smoking! Medications: Refilled paroxetine HCl 10 mg PO DAILY 90 tabs 2RF atorvastatin 80 mg PO DAILY 90 tabs 2RF Coding Level of Care Code Est Pt Prev Care >65y(74155) Diagnoses Annual physical exam Z00.00 Left inguinal hernia K40.90 CPA (cerebellopontine angle) tumor D33.3 Essential hypertension I10 Hypertension type: essential hypertension Gastroesophageal reflux disease without esophagitis K21.9 Hypercholesterolemia E78.00 Coronary artery disease involving [place] coronary artery of [place] heart without angina pectoris I25.10 Associated angina: without angina Coronary Disease-Associated Artery/Lesion type: [place] artery [place] vs. transplanted heart: [place] heart Impaired fasting glucose R73.01 Excessive salivation K11.7 Tobacco abuse Z72.0
== END 2024-02-27 17:11 | disposition home or self-care (01) ==
PROVIDERS: PCP Internal Medicine; Visit Provider Internal Medicine
DX: Z00.00 Encounter for general adult medical examination without abnormal findings (principal); K40.90 Unilateral inguinal hernia, without obstruction or gangrene, not specified as recurrent; D33.3 Benign neoplasm of cranial nerves; I10 Essential (primary) hypertension; K21.9 Gastro-esophageal reflux disease without esophagitis; E78.00 Pure hypercholesterolemia, unspecified; I25.10 Atherosclerotic heart disease of native coronary artery without angina pectoris; R73.01 Impaired fasting glucose; K11.7 Disturbances of salivary secretion; Z72.0 Tobacco use
CPT/HCPCS: 99397

== ENCOUNTER 2024-02-28 09:44 | Outpatient (REF) | payer OTHER, SELFPAY ==
[2024-02-28 10:09] LABS: MANUAL DIFF FLAG NO
[2024-02-28 11:20] LABS: Basophils Absolute Auto 0.1 X10*3/uL (0.0-0.2); Basophils Percent Auto 0.7 % (0-2); Eosinophils Absolute Auto 0.2 X10*3/uL (0.0-0.4); Eosinophils Percent Auto 1.9 % (0-4); Hematocrit 46.2 % (42.0-52.0); Hemoglobin 15.6 g/dl (14.0-18.0); Imm Gran Abs Auto 0.03 X10*3/uL (0.00-0.03); Imm Gran Pct Auto 0.4 % (0.0-0.4); Lymphocytes Absolute Auto 2.7 X10*3/uL (1.2-4.9); Lymphocytes Percent Auto 32.5 % (20-40); Mean Corpuscular HGB Conc 33.8 g/dl (31.0-36.0); Mean Corpuscular Hemoglobin 29.5 pg (27.0-33.0); Mean Corpuscular Volume 87.3 fL (80.0-98.0); Mean Platelet Volume 9.3 fL (9.4-12.4); Monocytes Absolute Auto 1.2 X10*3/uL (0.1-1.2); Monocytes Percent Auto 14.5 % (2-11); Neutrophils Absolute Auto 4.2 x10*3/uL (2.0-8.3); Platelet Count 297 X10*3/uL (160-400); Red Blood Count 5.29 X10*6/uL (4.60-5.80); Red Cell Distribution Width 16.1 % (11.0-16.0); White Blood Count 8.3 X10*3/uL (4.8-10.8)
[2024-02-28 11:29] LABS: Estimated Average Glucose 120 mg/dL; Hemoglobin A1c % 5.8 % (<6.0)
[2024-02-28 12:36] LABS: Alanine Aminotransferase 23 U/L (0-40); Albumin Level 4.1 g/dL (3.5-5.0); Alkaline Phosphatase 157 U/L (39-117); Anion Gap 12 (12-20); Aspartate Amino Transferase 26 U/L (5-37); Bilirubin Total 0.8 mg/dL (0.0-1.0); Blood Urea Nitrogen 12 mg/dL (9-16); Calcium 9.9 mg/dL (8.4-10.2); Carbon Dioxide 25 mmol/L (22-29); Chloride 107 mmol/L (96-108); Cholesterol 108 mg/dL (<200); Estimated Glomerular Filt Rate > 60; Glucose Random 98 mg/dL (60-115); HDL Cholesterol 40 mg/dL (>40); LDL Cholesterol Calculated 49 mg/dL (<100); Potassium 4.1 mmol/L (3.3-5.1); Sodium 140 mmol/L (135-145); Total Protein 6.8 g/dL (6.5-8.0); Triglycerides 96 mg/dL (<150)
[2024-02-28 12:53] LABS: Free T4 (Free Thyroxine) 0.76 ng/dL (0.71-1.85); Thyroid Stimulating Hormone 1.27 uIU/mL (0.32-4.0)
[2024-02-28 12:57] LABS: Folate 4.4 ng/mL (> or = 4.0); Vitamin B12 335 pg/mL (200-900)
== END 2024-02-28 09:45 | disposition home or self-care (01) ==
LOC: HO.LAB 09:44
PROVIDERS: PCP Internal Medicine; Visit Provider Internal Medicine
DX: E78.00 Pure hypercholesterolemia, unspecified (principal); R73.01 Impaired fasting glucose
CPT/HCPCS: 36415; 80053; 80061; 82607; 82746; 83036; 84439; 84443; 85025

== ENCOUNTER 2024-06-05 13:37 | Outpatient (AMB) | payer OTHER, SELFPAY ==
[2024-06-05 13:42] VITALS: BP 130/70; PULSE 65; O2SAT 96; BMI 22.7
--- NOTE | 2024-06-05 13:42 | A.OFFPC_ITS ---
Vital Signs 06/05/24 13:42 Height 5 ft 4 in Weight 132 lb BMI 22.7 BP 130/70 Blood Pressure Location Lt brachial Position Sitting Pulse 65 Pulse Source Pulse Oximeter Pulse Oximetry (%) 96 Oxygen Delivery Method Room Air Intake Visit Reasons: follow up 3 months/ L inguinal hernia, CAD Allergies lactose [LACTOSE] Allergy (Intermediate, Verified 06/05/24 13:42) DIARRHEA amlodipine Allergy (Unknown, Verified 06/05/24 13:42) Unknown famotidine Allergy (Unknown, Verified 06/05/24 13:42) Unknown metoprolol Allergy (Unknown, Verified 06/05/24 13:42) Unknown Tobacco use date assessed: 02/27/24 Fall risk assessment: No Falls in past year Last assessed Fall Risk: 06/05/24 Dental Screening Dental Screen Date: 02/27/24 HPI follow up 3 months/ L inguinal hernia, CAD HPI Details 79-year-old male with a history of CPA t umor hypertension GERD hypercholesterolemia coronary artery disease impaired glucose tolerance excessive salivation coming in for follow-up. Last seen in February 2024 for physical exam. Patient smokes. because of knee pain and takes diclofenac gel need refill [facility] Medical History (Updated 06/05/24 @ 14:05 by Chemo Ortiz MD) Colon cancer screening Dysphagia Right groin pain Subdural bleeding Compression fracture of T4 vertebra H. pylori duodenitis BPH (benign prostatic hyperplasia) Hypertension Anxiety and depression Post herpetic neuralgia CPA (cerebellopontine angle) tumor Trigeminal neuralgia Peripheral vascular disease GERD (gastroesophageal reflux disease) Ascending aorta dilatation Hypercholesterolemia Impaired fasting glucose Coronary artery disease Surgical History History of ankle surgery H/O hernia repair Hx laparoscopic cholecystectomy History of esophagogastroduodenoscopy (EGD) H/O colonoscopy History of coronary artery stent placement Family History Father No problems noted. Mother No problems noted. Brother No problems noted. Sister No problems noted. Son No problems noted. Daughter No problems noted. Social History Housing: Apartment Are you a primary health care attorney to a significant other at home: No Do you presently have visiting nurse or other home services: No Alcohol intake: former Year quit: 2020 Patient Tobacco Use Status: Former Tobacco user Tobacco use type: Cigarette Cigarettes Per Day: 6 Years Smoked: 25 +/- Packs per year/per ci.00 e-Cigarette/Vaping Use: Never Used Second Hand Smoke Exposure: No service: No Current occupational status: retired Cognitive needs: No Hearing needs: No Vision needs: Yes Questionnaire PHQ-9 Over the last 2 weeks, how often have you been bothered by any of the following problems? 1. Little interest or pleasure in doing things: not at all 2. Feeling down, depressed, or hopeless: not at all 3. Trouble falling or staying asleep, or sleeping too much: several days 4. Feeling tired or having little energy: not at all 5. Poor appetite or overeating: not at all 6. Feeling bad about yourself - or that you are a failure or have let yourself or your family down: not at all 7. Trouble concentrating on things, such as reading the newspaper or watching television: not at all 8. Moving or speaking so slowly that other people could have noticed. Or the opposite - being so fidgety or restless that you have been moving around a lot more than usual: not at all 9. Thoughts that you would be better off or of hurting yourself in some way: not at all Total score: 1 Depression Screening Interpretation: Negative Depression Screening Done: Yes Source: Developed by Drs. Dante Lambert, Jg Almonte and colleagues, with an educational rut from [employer]. Thrive Questionnaire Date Thrive assessed: 02/27/24 AUDIT C Alcohol Use Questionnaire (AUDIT-C) 1. How often do you have a drink containing alcohol?: Never 2. How many drinks containing alcohol do you have on a typical day when you are drinking?: 1 or 2 (0) 3. How often do you have six or more drinks on one occasion?: Never Total Score: 0 LEMUEL-7 AMB Questionnaire LEMUEL-7 Date LEMUEL - 7 assessed: 02/27/24 Source: Developed by Drs. Dante Lambert, Jg Almonte and colleagues, with an educational rut from [employer]. Physical exam (Primary Care) Vital Signs: Last Vital Signs Pulse 65 11/27/24 13:42 BP 130/70 06/05/24 13:42 Pulse Ox 96 06/05/24 13:42 Oxygen Delivery Method Room Air 06/05/24 13:42 BMI result Body Mass Index 22.7 Tobacco/Smoking Status: Tobacco use Status Tobacco use date assessed 02/27/24 06/05/24 13:46 Patient Tobacco Use Status Former Tobacco user 06/05/24 13:46 Tobacco use type Cigarette 06/05/24 13:46 e-Cigarette/Vaping Use Never Used 06/05/24 13:46 PHQ-9: PHQ-9 Score PHQ-9: Total score 1 06/05/24 13:46 Depression Screening Interpretation: Negative Thrive Assessment: Date of Thrive Assessment Date Thrive assessed 02/27/24 06/05/24 13:46 Const General: alert; No acute distress Eyes Conjunctivae: conjunctivae normal Resp Auscultation: clear to auscultation bilaterally Cardio Rate: regular rate Rhythm: regular rhythm GI Inspection: Yes normal to inspection Extrem General: Yes normal to inspection and No edema Coding Level of Care Code Est Pt Level 4 (16258) Diagnoses CPA (cerebellopontine angle) tumor D33.3 Excessive salivation K11.7 Coronary artery disease involving [place] coronary artery of [place] heart without angina pectoris I25.10 Coronary Disease-Associated Artery/Lesion type: [place] artery [place] vs. transplanted heart: [place] heart Associated angina: without angina Hypercholesterolemia E78.00 Essential hypertension I10 Hypertension type: essential hypertension Generalized anxiety disorder F41.1 Tobacco abuse Z72.0 Chronic pain of left knee M25.562; G89.29 Chronicity: chronic Assessment & Plan Assessment & Plan (1) CPA (cerebellopontine angle) tumor: Comment: October 2017, March 2019, 04/2023 No acute intracranial abnormalities. 2. Mild underlying microangiopathy and generalized cerebral volume loss. 3. A mass along the right cerebellopontine angle suggestive of an underlying schwannoma have mildly decreased in size compared to exam from 2019. 4. No additional abnormal intracranial enhancement. Code(s): D33.3 - Benign neoplasm of cranial nerves Category: Medical Plan: This is basically just monitored (2) Excessive salivation: Comment: Submandibular gland excision 05/2020 Code(s): K11.7 - Disturbances of salivary secretion Category: Medical Plan: Continuing supportive treatment (3) Coronary artery disease: Comment: NSTEMI with drug-eluting stent February 2016 Code(s): I25.10 - Atherosclerotic heart disease of [place] coronary artery without angina pectoris Category: Medical Qualifiers: Coronary Disease-Associated Artery/Lesion type: [place] artery [place] vs. transplanted heart: [place] heart Associated angina: without angina Qualified Code(s): I25.10 - Atherosclerotic heart disease of [place] coronary artery without angina pectoris Plan: Control the cholesterol, weight, blood pressure with 02/2024 last blood work (4) Hypercholesterolemia: Code(s): E78.00 - Pure hypercholesterolemia, unspecified Category: Medical Plan: Avoid fried foods, chicken skin, eggs, butter margarine, pastries and meat. Be it pork or beef they have a lot of cholesterol LDL goal of less than 70 and triglyceride of less than 150. On account of CAD on atorvastatin 80 mg once a day (5) Hypertension: Code(s): I10 - Essential (primary) hypertension Category: Medical Qualifiers: Hypertension type: essential hypertension Qualified Code(s): I10 - Essential (primary) hypertension Plan: Continue with blood pressure medication. Decrease salt intake and exercise on lisinopril 40 mg once a day. (6) Generalized anxiety disorder: Comment: Declined counseling referral Code(s): F41.1 - Generalized anxiety disorder Category: Medical Plan: Continuing with the present medication. (7) Tobacco abuse: Comment: Stopped march 2024 Code(s): Z72.0 - Tobacco use Category: Medical Plan: doing good on the patch (8) Left knee pain: Code(s): M25.562 - Pain in left knee Category: Medical Qualifiers: Chronicity: chronic Qualified Code(s): M25.562 - Pain in left knee; G89.29 - Other chronic pain Plan: Voltaren gel prescription sent in Medications: New diclofenac sodium 1% (Arthritis Pain (diclofenac)) apply to single knee, ankle, foot; for foot includes sole/toes/top of foot 4 grams topical QID 100 grams 9RF M25.562 - Pain in left knee
== END 2024-06-05 14:11 | disposition home or self-care (01) ==
PROVIDERS: PCP Internal Medicine; Visit Provider Internal Medicine
DX: D33.3 Benign neoplasm of cranial nerves (principal); K11.7 Disturbances of salivary secretion; I25.10 Atherosclerotic heart disease of native coronary artery without angina pectoris; E78.00 Pure hypercholesterolemia, unspecified; I10 Essential (primary) hypertension; F41.1 Generalized anxiety disorder; Z72.0 Tobacco use; M25.562 Pain in left knee; G89.29 Other chronic pain

== ENCOUNTER → 2024-06-05 13:37 | Outpatient (BNVA) | payer OTHER, SELFPAY | PROVIDERS: PCP Internal Medicine; Visit Provider Internal Medicine | DX: D33.3 Benign neoplasm of cranial nerves (principal); K11.7 Disturbances of salivary secretion; I25.10 Atherosclerotic heart disease of native coronary artery without angina pectoris; E78.00 Pure hypercholesterolemia, unspecified; I10 Essential (primary) hypertension; F41.1 Generalized anxiety disorder; M25.562 Pain in left knee; G89.29 Other chronic pain; Z72.0 Tobacco use | CPT/HCPCS: 96127; 99212 ==

== ENCOUNTER 2024-08-22 13:31 | Outpatient (REF) | payer OTHER, SELFPAY | END 2024-08-22 13:32 | disposition home or self-care (01) | LOC: HO.SH 13:31 | PROVIDERS: Visit Provider Internal Medicine | DX: Z01.118 Encounter for examination of ears and hearing with other abnormal findings (principal); H90.3 Sensorineural hearing loss, bilateral | CPT/HCPCS: 92557 ==

== ENCOUNTER 2024-09-20 13:49 | Outpatient (REF) | payer OTHER, SELFPAY ==
--- NOTE | ~2024-09-20 | XR_ITS ---
EXAMINATION: XR SINUSES CLINICAL INFORMATION: R09.81 - Nasal congestion COMPARISON: None available. TECHNIQUE: 3 views of the sinuses were obtained. FINDINGS: No significant paranasal sinus opacification or air-fluid level present. Mastoids appear aerated. No fracture or focal bony abnormality. Nasal septum appears grossly midline. The calvarium appears unremarkable. Nasal bones intact. Orbits intact. No soft tissue abnormality. XR/XR sinus min 3V IMPRESSION: No radiographic evidence of significant paranasal sinus disease. Electronically signed by: Syed Vigil MD 09/20/2024 04:11 PM EDT
--- NOTE | ~2024-09-20 | XR_ITS ---
EXAMINATION: XR CHEST CLINICAL INFORMATION: R09.81 - Nasal congestion COMPARISON: 07/21/2022. TECHNIQUE: 2 views of the chest were obtained. FINDINGS: Mildly elevated right hemidiaphragm. Mild cardiac enlargement. Mediastinal and hilar contours are normal. Left coronary stent. Aortic mural calcifications. The lungs are mildly hyperaerated, with minimal linear scarring or atelectasis lingula. Lungs otherwise clear bilaterally. There is no pneumothorax or pleural effusion. There is no focal osseous or soft tissue abnormality. There are cholecystectomy clips present. XR/XR chest 2V IMPRESSION: 1. Hyperaerated lungs consistent with COPD. No active superimposed disease. 2. Mild cardiomegaly. Left coronary stent. Electronically signed by: Syed Vigil MD 09/20/2024 04:10 PM EDT
== END 2024-09-20 13:50 | disposition home or self-care (01) ==
LOC: HO.XRAY 13:49
PROVIDERS: PCP Internal Medicine; Visit Provider Internal Medicine
DX: I25.10 Atherosclerotic heart disease of native coronary artery without angina pectoris (principal); E78.00 Pure hypercholesterolemia, unspecified; K21.9 Gastro-esophageal reflux disease without esophagitis; I10 Essential (primary) hypertension; R73.01 Impaired fasting glucose; K11.7 Disturbances of salivary secretion; F41.1 Generalized anxiety disorder; R09.81 Nasal congestion; I25.2 Old myocardial infarction
CPT/HCPCS: 70220; 71046; 99212

== ENCOUNTER 2024-09-20 13:49 | Outpatient (AMB) | payer OTHER, SELFPAY ==
--- NOTE | 2024-09-20 14:00 | MHC.PC.OV ---
Vital Signs 09/20/24 14:01 Height 5 ft 4 in Weight 141 lb 4 oz BMI 24.2 BP 122/80 Blood Pressure Location Lt brachial Position Sitting Pulse 64 Pulse Source Pulse Oximeter Pulse Oximetry (%) 96 Oxygen Delivery Method Room Air Intake Visit Reasons: breathing/HTN Stonemason Required: No Accompanied by: Self / Same As Patient Allergies lactose [LACTOSE] Allergy (Intermediate, Verified 09/20/24 14:02) DIARRHEA amlodipine Allergy (Unknown, Verified 09/20/24 14:02) Unknown famotidine Allergy (Unknown, Verified 09/20/24 14:02) Unknown metoprolol Allergy (Unknown, Verified 09/20/24 14:02) Unknown Medication List - Last Reconciled 09/20/24 by Chemo Ortiz MD aspirin 81 mg PO DAILY atorvastatin 80 mg PO DAILY azithromycin (Zithromax) For 250 mg dose pack: take 500 mg today (day 1), then 250 mg for 4 days (days 2-5) PO diclofenac sodium 1% (Arthritis Pain (diclofenac)) 4 grams topical QID diclofenac sodium 1% (Arthritis Pain (diclofenac)) 4 grams topical QID gabapentin 300 mg PO DAILY lisinopril 40 mg PO DAILY nicotine 1 patch transdermal DAILY paroxetine HCl 10 mg PO DAILY polyethylene glycol 3350 (Miralax) 17 grams PO DAILY psyllium husk (Metamucil) 0.8 grams (2 x 0.4 gram) PO BEDTIME PRN Tobacco use date assessed: 09/20/24 Last assessed Fall Risk: 09/20/24 Dental Screening Dental Screen Date: 09/20/24 HPI breathing/HTN HPI Details sob 3 weeks no fevers, congestion, no sore throat, , tight on breathing [facility] Medical History (Updated 09/20/24 @ 14:35 by Chemo Ortiz MD) Colon cancer screening Dysphagia Right groin pain Subdural bleeding Compression fracture of T4 vertebra H. pylori duodenitis BPH (benign prostatic hyperplasia) Hypertension Anxiety and depression Post herpetic neuralgia CPA (cerebellopontine angle) tumor Trigeminal neuralgia Peripheral vascular disease GERD (gastroesophageal reflux disease) Ascending aorta dilatation Hypercholesterolemia Impaired fasting glucose Coronary artery disease Surgical History History of ankle surgery H/O hernia repair Hx laparoscopic cholecystectomy History of esophagogastroduodenoscopy (EGD) H/O colonoscopy History of coronary artery stent placement Family History Father No problems noted. Mother No problems noted. Brother No problems noted. Sister No problems noted. Son No problems noted. Daughter No problems noted. Social History Housing: Apartment Are you a primary child care supervisor to a significant other at home: No Do you presently have visiting nurse or other home services: No Alcohol intake: former Year quit: 2019 Patient Tobacco Use Status: Former Tobacco user Tobacco use type: Cigarette Cigarettes Per Day: 6 Years Smoked: 25 +/- e-Cigarette/Vaping Use: Never Used Second Hand Smoke Exposure: No service: No Current occupational status: retired Cognitive needs: No Hearing needs: No Vision needs: Yes Questionnaire PHQ-9 Over the last 2 weeks, how often have you been bothered by any of the following problems? 1. Little interest or pleasure in doing things: not at all 2. Feeling down, depressed, or hopeless: not at all 3. Trouble falling or staying asleep, or sleeping too much: several days 4. Feeling tired or having little energy: not at all 5. Poor appetite or overeating: not at all 6. Feeling bad about yourself - or that you are a failure or have let yourself or your family down: not at all 7. Trouble concentrating on things, such as reading the newspaper or watching television: not at all 8. Moving or speaking so slowly that other people could have noticed. Or the opposite - being so fidgety or restless that you have been moving around a lot more than usual: not at all 9. Thoughts that you would be better off or of hurting yourself in some way: not at all Total score: 1 Depression Screening Interpretation: Negative Depression Screening Done: Yes Source: Developed by Drs. Dante Lambert, Gypsy Eugene, Jg Weber and colleagues, with an educational rut from [employer]. Thrive Questionnaire Date Thrive assessed: 09/20/24 I am a: Patient What is your living situation today?: I have a steady place to live Within the past 12 months, did the food you bought not last and you didn't have the money to get more?: Never true Within the past 12 months, did you worry whether your food would run out before you got money to buy more?: Never true Do you have trouble paying for medicines?: No Do you have trouble getting transportation to medical appointments?: No Do you have trouble paying your heating and electricity bill?: No Do you have trouble taking care of your child, family member or friend?: No Do you have trouble with day-to-day activities such as bathing, preparing meals, shopping, managing finances, etc.?: No Are you currently unemployed and looking for a job?: No Are you interested in more education?: No Please select the resources that you would like help with: None Currently or been in a relationship where the following occur: No concerns reported THRIVE Score: 0 AUDIT C Alcohol Use Questionnaire (AUDIT-C) 1. How often do you have a drink containing alcohol?: Never 2. How many drinks containing alcohol do you have on a typical day when you are drinking?: 1 or 2 (0) 3. How often do you have six or more drinks on one occasion?: Never Total Score: 0 LEMUEL-7 AMB Questionnaire LEMUEL-7 Date LEMUEL - 7 assessed: 09/20/24 Feeling nervous, anxious, or on edge: 0 = Not at all Not being able to stop or control worryin = Not at all Worrying too much about different things: 0 = Not at all Trouble relaxin = Not at all Being so restless that it is hard to sit still: 0 = Not at all Becoming easily annoyed or irritable: 0 = Not at all Feeling afraid as if something awful might happen: 0 = Not at all Total LEMUEL-7 score (0-4 normal; 5-9 mild; 10-14 moderate; 15-21 severe): 0 Source: Developed by Drs. Dante Lambert, Gypsy Eugene, Jg Weber and colleagues, with an educational rut from [employer]. Physical exam (Primary Care) Vital Signs: Last Vital Signs Pulse 64 09/20/24 14:01 BP 122/80 09/20/24 14:01 Pulse Ox 96 09/20/24 14:01 Oxygen Delivery Method Room Air 09/20/24 14:01 BMI result Body Mass Index 24.2 Tobacco/Smoking Status: Tobacco use Status Tobacco use date assessed 09/20/24 09/20/24 14:07 Patient Tobacco Use Status Former Tobacco user 09/20/24 14:07 Tobacco use type Cigarette 09/20/24 14:07 e-Cigarette/Vaping Use Never Used 09/20/24 14:07 PHQ-9: PHQ-9 Score PHQ-9: Total score 1 09/20/24 14:07 Depression Screening Interpretation: Negative Thrive Assessment: Date of Thrive Assessment Date Thrive assessed 09/20/24 09/20/24 14:07 Currently or been in a relationship where the following occur: No concerns reported Const General: alert; No acute distress Eyes Conjunctivae: conjunctivae normal Resp Auscultation: clear to auscultation bilaterally Cardio Rate: regular rate Rhythm: regular rhythm GI Inspection: Yes normal to inspection Extrem General: Yes normal to inspection and No edema Coding Level of Care Code Est Pt Level 4 (68038) Diagnoses Coronary artery disease involving [place] coronary artery of [place] heart without angina pectoris I25.10 Coronary Disease-Associated Artery/Lesion type: [place] artery [place] vs. transplanted heart: [place] heart Associated angina: without angina Hypercholesterolemia E78.00 Gastroesophageal reflux disease without esophagitis K21.9 Essential hypertension I10 Hypertension type: essential hypertension Impaired fasting glucose R73.01 Excessive salivation K11.7 Generalized anxiety disorder F41.1 Sinus congestion R09.81 Assessment & Plan Assessment & Plan (1) Coronary artery disease: Comment: NSTEMI with drug-eluting stent February 2016 Code(s): I25.10 - Atherosclerotic heart disease of [place] coronary artery without angina pectoris Category: Medical Qualifiers: Coronary Disease-Associated Artery/Lesion type: [place] artery [place] vs. transplanted heart: [place] heart Associated angina: without angina Qualified Code(s): I25.10 - Atherosclerotic heart disease of [place] coronary artery without angina pectoris Plan: Control the cholesterol, weight, blood pressure, diabetes on aspirin (2) Hypercholesterolemia: Code(s): E78.00 - Pure hypercholesterolemia, unspecified Category: Medical Plan: Avoid fried foods, chicken skin, eggs, butter margarine, pastries and meat. Be it pork or beef they have a lot of cholesterol LDL goal of less than 70 and triglyceride of less than 150 patient is on atorvastatin 80 mg once a day 02/27/2024 last blood work (3) GERD (gastroesophageal reflux disease): Code(s): K21.9 - Gastro-esophageal reflux disease without esophagitis Category: Medical Plan: Avoid the foods that causes that usually spicy foods, tomato products, juices, coffee, soda and foods that your sensitive to. After eating do not lie down, allow 3-4 hours before in lie down. And keep the head of bed above 30 degrees to avoid the acid from going up. (4) Hypertension: Code(s): I10 - Essential (primary) hypertension Category: Medical Qualifiers: Hypertension type: essential hypertension Qualified Code(s): I10 - Essential (primary) hypertension Plan: Continue with blood pressure medication. Decrease salt intake and exercise on lisinopril 40 mg once a day (5) Impaired fasting glucose: Code(s): R73.01 - Impaired fasting glucose Category: Medical Plan: Decrease the amount of carbohydrate intake, pasta, bread, rice and potatoes are all sugar and that is aside from all the sweet stuff, remember that fruits are good but they are Sweet also. (6) Excessive salivation: Comment: Submandibular gland excision 05/2020 Code(s): K11.7 - Disturbances of salivary secretion Category: Medical Plan: Supportive management (7) Generalized anxiety disorder: Comment: Declined counseling referral Code(s): F41.1 - Generalized anxiety disorder Category: Medical Plan: Continue with present medication. Declined counseling (8) Sinus congestion: Code(s): R09.81 - Nasal congestion Category: Medical Plan History of Present Illness Health Maintenance - Blood work in February 2024: Normal blood count, electrolytes, blood sugar; HbA1c at 5.8%, LDL at 49 mg/dL. - Colonoscopy up to date as of August 2023. - Last esophagogastroduodenoscopy with dilatation in 2021. Social History - The patient is a smoker. - Reports waking every two hours, though denies nocturia. - Dietary choices include unspecified special foods mixed with a drink. Review of Systems - Respiratory: Reports shortness of breath with activity; denies persistent cough. - Cardiovascular: Reports chest tightness on exertion. - Gastrointestinal: Denies painful swallowing. - General: Denies fever; denies pain upon movement. - Neurological/Psychiatric: Denies significant chest or head pain, but reports tightness in breathing. Physical Exam - Respiratory- Observed to be wheezing. - General- Oxygen saturation noted to be normal. Results - Labs: Previous blood work in February 2024 showed normal blood count and electrolytes, normal blood sugar, HbA1c of 5.8%, LDL of 49 mg/dL. - Evaluations pending: Chest x-ray to be completed. Plan The patient was started on azithromycin for respiratory symptoms, with a prescription provided. A chest x-ray was advised to evaluate potential lung conditions. Continuation of atorvastatin and lisinopril was confirmed for lipid and hypertension management. The patient received guidance on sinusuitis management, including maintaining hydration and considering sinus rinses. An assessment period is planned to ensure symptom improvement before the next consultation. Patient was informed and verbally consented to the use of an ambient scribe for clinic note documentation during this visit. Discussion Notes I discussed with the patient the initiation of azithromycin for addressing the prolonged symptoms of respiratory discomfort and potential underlying infection. A chest x-ray is required to rule out more serious conditions, given his significant smoking history. I outlined the benefits of lung imaging for comprehensive assessment, emphasizing the safety and reassurance it provides. I recommended the patient to continue his existing medication regimen as these contribute to the overall control of his cardiovascular risk factors. Follow-up arrangements were detailed to the patient, directing attention to any concerning changes in his symptoms. Hydration and sinus rinse practices were emphasized as supportive measures, acknowledging the past inefficacy of nasal sprays. Patient Instructions - Start azithromycin as prescribed: take two tablets on the first day, then one tablet daily for the following four days. - Proceed to obtain the chest x-ray as recommended today. - Continue with current medications: atorvastatin 80 mg daily and lisinopril 40 mg daily. - Ensure adequate hydration; water intake is important. - Consider sinus rinses for congestion management. - Return for follow-up in three months, or sooner if symptoms worsen. - Reach out if experiencing significant symptom changes or have concerns before your next appointment. Orders: Orders XR sinus min 3V Today R09.81 - Nasal congestion XR chest 2V Today R09.81 - Nasal congestion Medications: New azithromycin (Zithromax) For 250 mg dose pack: take 500 mg today (day 1), then 250 mg for 4 days (days 2-5) PO 6 tabs 0RF R09.81 - Nasal congestion
[2024-09-20 14:01] VITALS: BP 122/80; PULSE 64; O2SAT 96; BMI 24.2
== END 2024-09-20 14:40 | disposition home or self-care (01) ==
LOC: HO.HMCH 13:49
PROVIDERS: PCP Internal Medicine; Visit Provider Internal Medicine
DX: I25.10 Atherosclerotic heart disease of native coronary artery without angina pectoris (principal); E78.00 Pure hypercholesterolemia, unspecified; K21.9 Gastro-esophageal reflux disease without esophagitis; I10 Essential (primary) hypertension; R73.01 Impaired fasting glucose; K11.7 Disturbances of salivary secretion; F41.1 Generalized anxiety disorder; R09.81 Nasal congestion

== ENCOUNTER → 2024-09-20 14:58 | Outpatient (BNV) | payer OTHER, SELFPAY | PROVIDERS: PCP Internal Medicine; Visit Provider Radiology Diagnostic Radiology | DX: R09.81 Nasal congestion (principal) | CPT/HCPCS: 70220; 71046 ==

== ENCOUNTER 2024-10-10 15:26 | Outpatient (AMB) | payer OTHER, SELFPAY ==
--- NOTE | 2024-10-10 15:34 | A.OFFPC_ITS ---
Vital Signs 10/10/24 15:35 Height 5 ft 4 in Weight 140 lb BMI 24.0 BP 132/70 Blood Pressure Location Lt brachial Position Sitting Pulse 64 Pulse Source Pulse Oximeter Pulse Oximetry (%) 95 Oxygen Delivery Method Room Air Intake Visit Reasons: wheezing Profile Saw Setup Operator Required: No Accompanied by: Son Allergies lactose [LACTOSE] Allergy (Intermediate, Verified 10/10/24 15:50) DIARRHEA amlodipine Allergy (Unknown, Verified 10/10/24 15:50) Unknown famotidine Allergy (Unknown, Verified 10/10/24 15:50) Unknown metoprolol Allergy (Unknown, Verified 10/10/24 15:50) Unknown Medication List - Last Reconciled 10/10/24 by Lorie Smith MD aspirin 81 mg PO DAILY atorvastatin 80 mg PO DAILY diclofenac sodium 1% (Arthritis Pain (diclofenac)) 4 grams topical QID diclofenac sodium 1% (Arthritis Pain (diclofenac)) 4 grams topical QID gabapentin 300 mg PO DAILY lisinopril 40 mg PO DAILY nicotine 1 patch transdermal DAILY paroxetine HCl 10 mg PO DAILY polyethylene glycol 3350 (Miralax) 17 grams PO DAILY psyllium husk (Metamucil) 0.8 grams (2 x 0.4 gram) PO BEDTIME PRN Tobacco use date assessed: 09/20/24 Fall risk assessment: No Falls in past year Last assessed Fall Risk: 10/10/24 Dental Screening Dental Screen Date: 10/10/24 Did you have a dental visit in the last 12 months?: No Did you have a dental problem in the last 6 months where you did not have access to dental care?: No Was dental information given to patient?: Patient has dentist HPI HPI Comments History of Present Illness Details The patient is an 79-year-old male presenting with difficulty inhaling and high blood pressure, which have been persisting for about four months. The difficulty in breathing is particularly pronounced with exertion, and there is no reported use of inhalers. The patient has hypertension which is stable, and notes a history of smoking until six months ago, perhaps exacerbating respiratory health concerns. The patient has undergone sinus and chest x-rays, with the latter revealing chronic obstructive pulmonary disease. There is a documented history of being on azithromycin treatment recently. He also has dyslipidemia on statins and constipation on MiraLax as needed. [facility] Medical History (Updated 10/10/24 @ 15:58 by Lorie Smith MD) Colon cancer screening Dysphagia Right groin pain Subdural bleeding Compression fracture of T4 vertebra H. pylori duodenitis BPH (benign prostatic hyperplasia) Hypertension Anxiety and depression Post herpetic neuralgia CPA (cerebellopontine angle) tumor Trigeminal neuralgia Peripheral vascular disease GERD (gastroesophageal reflux disease) Ascending aorta dilatation Hypercholesterolemia Impaired fasting glucose Coronary artery disease Surgical History History of ankle surgery H/O hernia repair Hx laparoscopic cholecystectomy History of esophagogastroduodenoscopy (EGD) H/O colonoscopy History of coronary artery stent placement Family History Father No problems noted. Mother No problems noted. Brother No problems noted. Sister No problems noted. Son No problems noted. Daughter No problems noted. Social History Housing: Apartment Are you a primary director critical care to a significant other at home: No Do you presently have visiting nurse or other home services: No Alcohol intake: former Year quit: 2019 Patient Tobacco Use Status: Former Tobacco user Tobacco use type: Cigarette Cigarettes Per Day: 6 Years Smoked: 25 +/- Packs per year/per ci.00 e-Cigarette/Vaping Use: Never Used Second Hand Smoke Exposure: No service: No Current occupational status: retired Cognitive needs: No Hearing needs: No Vision needs: Yes Questionnaire Thrive Questionnaire Date Thrive assessed: 09/20/24 LEMUEL-7 AMB Questionnaire LEMUEL-7 Date LEMUEL - 7 assessed: 09/20/24 Source: Developed by Drs. Dante Lambert, Gypsy Eugene, Jg Weber and colleagues, with an educational rut from [employer]. Review of Systems Const All systems reviewed & are unremarkable except as noted in HPI and below Card Denies chest pain at rest, Denies chest pain with activity, Denies edema, Denies irregular heart rhythm, Denies claudication, Denies dyspnea, Denies dyspnea on exertion, Denies orthopnea, Denies paroxysmal nocturnal dyspnea and Denies slow heart rate Resp Denies cough, Denies dyspnea and Denies dyspnea on exertion GI Denies abdominal pain, Denies change in bowel habits, Denies excessive flatus, Denies nausea and Denies vomiting Denies urinary hesitancy, Denies urinary incontinence and Denies urinary urgency Musc Denies atrophy, Denies deformity and Denies limited range of motion Skin/Breast Denies bleeding lesions, Denies changing lesions and Denies rash Physical exam (Primary Care) Vital Signs: Last Vital Signs Pulse 64 10/10/24 15:35 BP 132/70 10/10/24 15:35 Pulse Ox 95 10/10/24 15:35 Oxygen Delivery Method Room Air 10/10/24 15:35 BMI result Body Mass Index 24.0 Tobacco/Smoking Status: Tobacco use Status Tobacco use date assessed 09/20/24 10/10/24 15:45 Patient Tobacco Use Status Former Tobacco user 10/10/24 15:45 Tobacco use type Cigarette 10/10/24 15:45 e-Cigarette/Vaping Use Never Used 10/10/24 15:45 Thrive Assessment: Date of Thrive Assessment Date Thrive assessed 09/20/24 10/10/24 15:45 Resp Effort & Inspection: normal respiratory effort Auscultation: clear to auscultation bilaterally Cardio Jugular venous distension: no JVD Rate: regular rate Rhythm: regular rhythm Heart sounds: S1 normal heart sound present and S2 normal heart sound present Extrem General: Yes full ROM Coding Level of Care Code Est Pt Level 4 (37920) Complex EM visit Add On G2211 Diagnoses COPD (chronic obstructive pulmonary disease) J44.9 Essential hypertension I10 Hypertension type: essential hypertension Hypercholesterolemia E78.00 Constipation K59.00 Time Spent (min) 22 Assessment & Plan Assessment & Plan (1) COPD (chronic obstructive pulmonary disease): Code(s): J44.9 - Chronic obstructive pulmonary disease, unspecified Category: Medical (2) Hypertension: Code(s): I10 - Essential (primary) hypertension Category: Medical Qualifiers: Hypertension type: essential hypertension Qualified Code(s): I10 - Essential (primary) hypertension (3) Hypercholesterolemia: Code(s): E78.00 - Pure hypercholesterolemia, unspecified Category: Medical (4) Constipation: Code(s): K59.00 - Constipation, unspecified Category: Medical Plan The patient's known Chronic Obstructive Pulmonary Disease COPD) will be managed primarily with prescribed inhalers, including a daily long-acting inhaler and a rescue inhaler to be used as needed. Considering the potential cardiovascular implications of the rescue inhaler, its usage will be prescribed with caution. The patient's essential hypertension shall be monitored continually, with recognition of the smoking cessation playing a vital role in the overall improvement of health metrics. Referral to pulmonology has been set for specialized care and evaluation of the COPD. Patient was informed and verbally consented to the use of an ambient scribe for clinic note documentation during this visit. I discussed with the patient the diagnosis of Chronic Obstructive Pulmonary Disease (COPD) and the need for a structured inhaler regimen. I explained the importance of using a long-acting inhaler daily to address the chronic respiratory issues and prevent exacerbations, along with a rescue inhaler for acute management of severe symptoms. We reviewed the implications of using these inhalers, including potential acceleration of heart rate with the rescue inhaler, and they understand the balancing act required for optimal benefit. The patient agreed to proceed with a referral to a peoplesoft administrator to help manage the COPD further. We will reassess and monitor hypertension, which is notably influenced by the recent cessation of smoking. The patient acknowledged the next steps in care. Orders: Referrals Pulmonology Referral J44.9 - Chronic obstructive pulmonary disease, unspecified Medications: New fluticasone furoate-vilanterol 50-25 mcg/dose (Breo Ellipta) 1 inh inhalation Q24H 60 ea 0RF 60 days J44.9 - Chronic obstructive pulmonary disease, unspecified Ventolin HFA 90 mcg/actuation (albuterol sulfate) 1 inh inhalation QID PRN 8 grams 0RF shortness of breath or wheezing 30 days NS Patient Instructions: - Use the prescribed long-acting inhaler every day as instructed. - Use the rescue inhaler only in urgent situations when experiencing severe respiratory distress. - Attend the scheduled pulmonology appointment for further respiratory evaluation. - Monitor blood pressure regularly and report any significant changes or concerns. - Maintain a smoke-free lifestyle as a significant health measure. - Seek medical attention if experiencing any new or worsening symptoms.
[2024-10-10 15:35] VITALS: BP 132/70; PULSE 64; O2SAT 95; BMI 24.0
== END 2024-10-10 15:59 | disposition home or self-care (01) ==
LOC: HO.HMCH 15:27
PROVIDERS: PCP Internal Medicine; Visit Provider Internal Medicine
DX: J44.9 Chronic obstructive pulmonary disease, unspecified (principal); I10 Essential (primary) hypertension; E78.00 Pure hypercholesterolemia, unspecified; K59.00 Constipation, unspecified

== ENCOUNTER → 2024-10-10 15:26 | Outpatient (BNVA) | payer OTHER, SELFPAY | PROVIDERS: PCP Internal Medicine; Visit Provider Internal Medicine | DX: J44.9 Chronic obstructive pulmonary disease, unspecified (principal); R06.2 Wheezing; I10 Essential (primary) hypertension; E78.00 Pure hypercholesterolemia, unspecified; K59.00 Constipation, unspecified; Z87.891 Personal history of nicotine dependence | CPT/HCPCS: 99212 ==

== ENCOUNTER 2024-12-11 12:24 | Outpatient (AMB) | payer OTHER, SELFPAY ==
--- NOTE | 2024-12-11 12:40 | A.OFFPC_ITS ---
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 Required: No Accompanied by: Self / Same As Patient Allergies lactose [LACTOSE] Allergy (Intermediate, Verified 12/11/24 12:41) DIARRHEA amlodipine Allergy (Unknown, Verified 12/11/24 12:41) Unknown famotidine Allergy (Unknown, Verified 12/11/24 12:41) Unknown metoprolol Allergy (Unknown, Verified 12/11/24 12:41) Unknown Tobacco use date assessed: 12/11/24 Fall risk assessment: No Falls in past year Last assessed Fall Risk: 12/11/24 Dental Screening Dental Screen Date: 12/11/24 Did you have a dental visit in the last 12 months?: Yes Did you have a dental problem in the last 6 months where you did not have access to dental care?: No Was dental information given to patient?: Patient has dentist [facility] Medical History (Updated 12/11/24 @ 13:05 by Chemo Ortiz MD) Colon cancer screening Dysphagia Right groin pain Subdural bleeding Compression fracture of T4 vertebra H. pylori duodenitis BPH (benign prostatic hyperplasia) Hypertension Anxiety and depression Post herpetic neuralgia CPA (cerebellopontine angle) tumor Trigeminal neuralgia Peripheral vascular disease GERD (gastroesophageal reflux disease) Ascending aorta dilatation Hypercholesterolemia Impaired fasting glucose Coronary artery disease Surgical History History of ankle surgery H/O hernia repair Hx laparoscopic cholecystectomy History of esophagogastroduodenoscopy (EGD) H/O colonoscopy History of coronary artery stent placement Family History Father No problems noted. Mother No problems noted. Brother No problems noted. Sister No problems noted. Son No problems noted. Daughter No problems noted. Social History Housing: Apartment Are you a primary home health caregiver to a significant other at home: No Do you presently have visiting nurse or other home services: No Alcohol intake: former Year quit: 2020 Patient Tobacco Use Status: Former Tobacco user Tobacco use type: Cigarette Cigarettes Per Day: 6 Years Smoked: 25 +/- e-Cigarette/Vaping Use: Never Used Second Hand Smoke Exposure: No service: No Current occupational status: retired Cognitive needs: No Hearing needs: No Vision needs: Yes Questionnaire PHQ-9 Over the last 2 weeks, how often have you been bothered by any of the following problems? 1. Little interest or pleasure in doing things: not at all 2. Feeling down, depressed, or hopeless: not at all 3. Trouble falling or staying asleep, or sleeping too much: nearly every day 4. Feeling tired or having little energy: not at all 5. Poor appetite or overeating: not at all 6. Feeling bad about yourself - or that you are a failure or have let yourself or your family down: not at all 7. Trouble concentrating on things, such as reading the newspaper or watching television: not at all 8. Moving or speaking so slowly that other people could have noticed. Or the opposite - being so fidgety or restless that you have been moving around a lot more than usual: not at all 9. Thoughts that you would be better off or of hurting yourself in some way: not at all Total score: 3 Source: Developed by Drs. Dante Lambert, Gypsy Eugene, Jg Weber and colleagues, with an educational rut from [employer]. Thrive Questionnaire Date Thrive assessed: 12/11/24 I am a: Patient What is your living situation today?: I have a steady place to live Within the past 12 months, did the food you bought not last and you didn't have the money to get more?: Never true Within the past 12 months, did you worry whether your food would run out before you got money to buy more?: Never true Do you have trouble paying for medicines?: No Do you have trouble getting transportation to medical appointments?: No Do you have trouble paying your heating and electricity bill?: No Do you have trouble taking care of your child, family member or friend?: No Do you have trouble with day-to-day activities such as bathing, preparing meals, shopping, managing finances, etc.?: No Are you currently unemployed and looking for a job?: No Are you interested in more education?: No Please select the resources that you would like help with: None Currently or been in a relationship where the following occur: No concerns reported THRIVE Score: 0 AUDIT C Alcohol Use Questionnaire (AUDIT-C) 1. How often do you have a drink containing alcohol?: Never 3. How often do you have six or more drinks on one occasion?: Never Total Score: 0 LEMUEL-7 AMB Questionnaire LEMUEL-7 Date LEMUEL - 7 assessed: 12/11/24 Feeling nervous, anxious, or on edge: 0 = Not at all Not being able to stop or control worryin = Not at all Worrying too much about different things: 0 = Not at all Trouble relaxin = Not at all Being so restless that it is hard to sit still: 0 = Not at all Becoming easily annoyed or irritable: 0 = Not at all Feeling afraid as if something awful might happen: 0 = Not at all Total LEMUEL-7 score (0-4 normal; 5-9 mild; 10-14 moderate; 15-21 severe): 0 Source: Developed by Drs. Dante Lambert, Gypsy Eugene, Jg Weber and colleagues, with an educational rut from [employer]. Physical exam (Primary Care) Vital Signs: Last Vital Signs Pulse 64 12/11/24 12:41 BP 134/80 12/11/24 12:41 Pulse Ox 95 12/11/24 12:41 Oxygen Delivery Method Room Air 12/11/24 12:41 BMI result Body Mass Index 24.7 Tobacco/Smoking Status: Tobacco use Status Tobacco use date assessed 12/11/24 12/11/24 12:48 Patient Tobacco Use Status Former Tobacco user 12/11/24 12:48 Tobacco use type Cigarette 12/11/24 12:48 e-Cigarette/Vaping Use Never Used 12/11/24 12:48 PHQ-9: PHQ-9 Score PHQ-9: Total score 3 12/11/24 13:00 Thrive Assessment: Date of Thrive Assessment Date Thrive assessed 12/11/24 12/11/24 12:48 Currently or been in a relationship where the following occur: No concerns reported Const General: alert; No acute distress Eyes Conjunctivae: conjunctivae normal Resp Auscultation: clear to auscultation bilaterally Cardio Rate: regular rate Rhythm: regular rhythm GI Inspection: Yes normal to inspection Extrem General: Yes normal to inspection and No edema Coding Level of Care Code Est Pt Level 4 (77900) Complex EM visit Add On G2211 Diagnoses COPD (chronic obstructive pulmonary disease) J44.9 Generalized anxiety disorder F41.1 Excessive salivation K11.7 Impaired fasting glucose R73.01 Essential hypertension I10 Hypertension type: essential hypertension Gastroesophageal reflux disease without esophagitis K21.9 Hypercholesterolemia E78.00 Coronary artery disease involving [place] coronary artery of [place] heart without angina pectoris I25.10 Associated angina: without angina Coronary Disease-Associated Artery/Lesion type: di[place] artery [place] vs. transplanted heart: diomede heart Trochanteric bursitis, right hip M70.61 Plantar fasciitis of right foot M72.2 Assessment & Plan Assessment & Plan (1) COPD (chronic obstructive pulmonary disease): Code(s): J44.9 - Chronic obstructive pulmonary disease, unspecified Category: Medical Plan: Continue with albuterol inhaler as needed (2) Generalized anxiety disorder: Comment: Declined counseling referral Code(s): F41.1 - Generalized anxiety disorder Category: Medical Plan: Patient on paroxetine 10 mg once a day (3) Excessive salivation: Comment: Submandibular gland excision 05/2020 Code(s): K11.7 - Disturbances of salivary secretion Category: Medical Plan: Continuing to monitor (4) Impaired fasting glucose: Code(s): R73.01 - Impaired fasting glucose Category: Medical Plan: Decrease the amount of carbohydrate intake, pasta, bread, rice and potatoes are all sugar and that is aside from all the sweet stuff, remember that fruits are good but they are Sweet also. (5) Hypertension: Code(s): I10 - Essential (primary) hypertension Category: Medical Qualifiers: Hypertension type: essential hypertension Qualified Code(s): I10 - Essential (primary) hypertension Plan: Continue with blood pressure medication. Decrease salt intake and exercise on lisinopril 40 mg once a day (6) GERD (gastroesophageal reflux disease): Code(s): K21.9 - Gastro-esophageal reflux disease without esophagitis Category: Medical Plan: Avoid the foods that causes that usually spicy foods, tomato products, juices, coffee, soda and foods that your sensitive to. After eating do not lie down, allow 3-4 hours before in lie down. And keep the head of bed above 30 degrees to avoid the acid from going up. (7) Hypercholesterolemia: Code(s): E78.00 - Pure hypercholesterolemia, unspecified Category: Medical Plan: Avoid fried foods, chicken skin, eggs, butter margarine, pastries and meat. Be it pork or beef they have a lot of cholesterol patient needs blood work is on atorvastatin 80 mg once a day (8) Coronary artery disease: Comment: NSTEMI with drug-eluting stent February 2016 Code(s): I25.10 - Atherosclerotic heart disease of [place] coronary artery without angina pectoris Category: Medical Qualifiers: Associated angina: without angina Coronary Disease-Associated Artery/Lesion type: [place] artery [place] vs. transplanted heart: [place] heart Qualified Code(s): I25.10 - Atherosclerotic heart disease of [place] coronary artery without angina pectoris Plan: Control the cholesterol, weight, blood pressure, on aspirin 81 mg once a day (9) Trochanteric bursitis, right hip: Code(s): M70.61 - Trochanteric bursitis, right hip Category: Medical (10) Plantar fasciitis of right foot: Code(s): M72.2 - Plantar fascial fibromatosis Category: Medical Plan History of Present Illness The patient is an 79-year-old male presenting with hip pain and heat sensation in his feet. The hip pain is described as occurring during movement without any associated trauma, limiting his walking ability. The patient also reports excessive heat in his feet mainly at night, affecting his sleep, with no sharp pain, but significant discomfort, alleviated somewhat by cold water immersion. Chronic medical issues include coronary artery disease, with prior placement of a left coronary stent, hypercholesterolemia under treatment, hypertension managed with lisinopril, GERD, and a history of a cerebellopontine angle tumor. Impaired fasting glucose was identified, with past A1c at 5.8%, and recent blood work has been advised. The patient also suffers from COPD, BPH, and generalized anxiety disorder. Current medications include atorvastatin for cholesterol, paroxetine for anxiety, and symptomatic management with an albuterol inhaler as needed. Health Maintenance - Colonoscopy is up to date as of August 2023. - Blood work in February 2024 showed well-controlled cholesterol levels and an A1c of 5.8. - Vaccination status is documented, including recent pneumonia vaccine. Social History - Former smoker with a history of smoking for many years. - Currently residing independently. - No significant details regarding employment or familial support were discussed. Review of Systems - Cardiovascular: Denies additional chest pain or discomfort. - Respiratory: No new complaints beyond known COPD. - Gastrointestinal: Denies additional symptoms beyond managed GERD. - Musculoskeletal: Reports hip pain with movement, no falls reported. - Neurological: Reports excessive heat sensation in feet at night. - Psychological: Currently managed anxiety disorder, denies additional psychosocial stressors. Physical Exam - Musculoskeletal- Tenderness upon palpation of the hip, pain with movement. - Podiatric- No overt swelling or deformity noted, but reports heat sensation in feet. Results - Labs: A1c reported at 5.8%, cholesterol levels are controlled. - Imaging: Chest X-ray findings include mild cardiomegaly with left coronary stent placement. Plan A comprehensive approach to managing [Last Name]'s chronic conditions was discussed, focusing on coronary artery disease, cholesterol, and glucose levels. Hip pain appeared associated with trochanteric bursitis, warranting further imaging and conservative treatment. A podiatry consult was planned for plantar fasciitis symptoms, and footwear modifications were advised. Regular COPD management with albuterol continues, and necessary lab investigations will assist in ongoing monitoring of hypercholesterolemia and impaired glucose to lerance. We ensured current prescriptions, including atorvastatin and lisinopril, remain effective. Patient was informed and verbally consented to the use of an ambient scribe for clinic note documentation during this visit. Discussion Notes I discussed with the patient the likely diagnosis of trochanteric bursitis and the importance of getting X-rays to confirm this. We also reviewed options for managing his plantar fasciitis, such as appropriate footwear and potential exercises. The plan for hip X-rays and podiatry referral was mutually decided on. For his chronic diseases, the importance of ongoing medication adherence and regular follow-up was emphasized, including the need for upcoming blood work to monitor glucose tolerance and cholesterol levels. We talked about lifestyle modifications and avoidance of factors that might exacerbate his conditions. Patient Instructions - Schedule and complete hip X-ray as soon as possible. - Attend podiatry consultation for feet-related symptoms. - Continue taking all current medications as prescribed. - Refrain from eating or drinking anything except water for at least 8 hours before scheduled blood work. - Use appropriate cooling measures at night as needed for feet discomfort. - Wear supportive, comfortable footwear with soft gel inserts for foot support. - Follow-up with me after radiological evaluations for further management d iscussions. Orders: Orders Free T4 (Free Thyroxine) Today R73.01 - Impaired fasting glucose Comprehensive Met. Panel Today R73.01 - Impaired fasting glucose Vitamin B12 and Folate Today R73.01 - Impaired fasting glucose Hemoglobin A1c Today R73.01 - Impaired fasting glucose Complete Blood Count Auto Diff Today R73.01 - Impaired fasting glucose Thyroid Stimulating Hormone Today R73.01 - Impaired fasting glucose Lipid Panel Today E78.00 - Pure hypercholesterolemia, unspecified, R73.01 - Impaired fasting glucose XR hip RT min 2V Today M70.61 - Trochanteric bursitis, right hip Referrals Podiatry Referral M72.2 - Plantar fascial fibromatosis Orthopedics Referral M70.61 - Trochanteric bursitis, right hip
[2024-12-11 12:41] VITALS: BP 134/80; PULSE 64; O2SAT 95; BMI 24.7
== END 2024-12-11 13:11 | disposition home or self-care (01) ==
LOC: HO.HMCH 12:25
PROVIDERS: PCP Internal Medicine; Visit Provider Internal Medicine
DX: J44.9 Chronic obstructive pulmonary disease, unspecified (principal); F41.1 Generalized anxiety disorder; K11.7 Disturbances of salivary secretion; R73.01 Impaired fasting glucose; I10 Essential (primary) hypertension; K21.9 Gastro-esophageal reflux disease without esophagitis; E78.00 Pure hypercholesterolemia, unspecified; I25.10 Atherosclerotic heart disease of native coronary artery without angina pectoris; M70.61 Trochanteric bursitis, right hip; M72.2 Plantar fascial fibromatosis

== ENCOUNTER → 2024-12-11 12:24 | Outpatient (BNVA) | payer OTHER, SELFPAY | PROVIDERS: PCP Internal Medicine; Visit Provider Internal Medicine | DX: F41.1 Generalized anxiety disorder (principal); J44.9 Chronic obstructive pulmonary disease, unspecified; K11.7 Disturbances of salivary secretion; R73.01 Impaired fasting glucose; I10 Essential (primary) hypertension; K21.9 Gastro-esophageal reflux disease without esophagitis; E78.00 Pure hypercholesterolemia, unspecified; I25.10 Atherosclerotic heart disease of native coronary artery without angina pectoris; M70.61 Trochanteric bursitis, right hip; M72.2 Plantar fascial fibromatosis | CPT/HCPCS: 96127; 99212 ==

== ENCOUNTER 2024-12-12 08:18 | Outpatient (REF) | payer OTHER, SELFPAY ==
[2024-12-12 08:33] LABS: MANUAL DIFF FLAG NO
[2024-12-12 08:52] LABS: Basophils Absolute Auto 0.1 X10*3/uL (0.0-0.2); Eosinophils Absolute Auto 0.2 X10*3/uL (0.0-0.4); Eosinophils Percent Auto 2.6 % (0-4); Hematocrit 46.5 % (42.0-52.0); Hemoglobin 15.5 g/dl (14.0-18.0); Imm Gran Abs Auto 0.07 X10*3/uL (0.00-0.03); Imm Gran Pct Auto 0.8 % (0.0-0.4); Lymphocytes Absolute Auto 2.3 X10*3/uL (1.2-4.9); Lymphocytes Percent Auto 25.1 % (20-40); Mean Corpuscular HGB Conc 33.3 g/dl (31.0-36.0); Mean Corpuscular Hemoglobin 29.1 pg (27.0-33.0); Mean Corpuscular Volume 87.4 fL (80.0-98.0); Mean Platelet Volume 9.2 fL (9.4-12.4); Monocytes Absolute Auto 1.2 X10*3/uL (0.1-1.2); Monocytes Percent Auto 12.5 % (2-11); Neutrophils Absolute Auto 5.3 x10*3/uL (2.0-8.3); Platelet Count 278 X10*3/uL (160-400); Red Blood Count 5.32 X10*6/uL (4.60-5.80); Red Cell Distribution Width 15.4 % (11.0-16.0); White Blood Count 9.2 X10*3/uL (4.8-10.8)
[2024-12-12 09:03] LABS: Estimated Average Glucose 154 mg/dL
[2024-12-12 09:28] LABS: Alanine Aminotransferase 29 U/L (0-40); Albumin Level 4.1 g/dL (3.5-5.0); Alkaline Phosphatase 168 U/L (39-117); Anion Gap 8 (12-20); Aspartate Amino Transferase 40 U/L (5-37); Bilirubin Total 1.2 mg/dL (0.0-1.0); Blood Urea Nitrogen 12 mg/dL (9-16); Calcium 9.5 mg/dL (8.4-10.2); Carbon Dioxide 29 mmol/L (22-29); Chloride 109 mmol/L (96-108); Cholesterol 122 mg/dL (<200); Estimated Glomerular Filt Rate > 60; Glucose Random 123 mg/dL (60-115); HDL Cholesterol 35 mg/dL (>40); LDL Cholesterol Calculated 61 mg/dL (<100); Potassium 4.3 mmol/L (3.3-5.1); Sodium 142 mmol/L (135-145); Total Protein 6.7 g/dL (6.5-8.0); Triglycerides 134 mg/dL (<150)
[2024-12-12 09:44] LABS: Free T4 (Free Thyroxine) 0.82 ng/dL (0.71-1.85); Thyroid Stimulating Hormone 1.19 uIU/mL (0.32-4.0)
[2024-12-12 09:53] LABS: Folate 6.3 ng/mL (> or = 4.0); Vitamin B12 354 pg/mL (200-900)
== END 2024-12-12 08:19 | disposition home or self-care (01) ==
LOC: HO.LAB 08:18
PROVIDERS: PCP Internal Medicine; Visit Provider Internal Medicine
DX: E78.00 Pure hypercholesterolemia, unspecified (principal); R73.01 Impaired fasting glucose
CPT/HCPCS: 36415; 80053; 80061; 82607; 82746; 83036; 84439; 84443; 85025

== ENCOUNTER 2024-12-13 11:17 | Outpatient (REF) | payer OTHER, SELFPAY ==
--- NOTE | ~2024-12-13 | XR_ITS ---
EXAMINATION: XR HIP, RIGHT CLINICAL INFORMATION: M70.61 - Trochanteric bursitis, right hip COMPARISON: February 08, 2013 TECHNIQUE: Two views of the right hip. FINDINGS: Thin curvilinear calcific density parallels the superior lateral femoral head. Small osteophyte and degenerative cyst is is in the lateral roof of the acetabulum. There is subtle axial joint space narrowing of the right hip joint. A long arterial stent is present in the proximal medial thigh projecting beyond the [id number]. It has been placed since the prior exam. XR/XR hip RT min 2V IMPRESSION: CPPD arthropathy of the right hip with minimal joint space narrowing. Femoral artery stent. Electronically signed by: Pj Velasco MD 12/13/2024 11:57 AM EDT
== END 2024-12-13 11:18 | disposition home or self-care (01) ==
LOC: HO.XRAY 11:17
PROVIDERS: PCP Internal Medicine; Visit Provider Internal Medicine
DX: M70.61 Trochanteric bursitis, right hip (principal)
CPT/HCPCS: 73502

== ENCOUNTER → 2024-12-13 11:21 | Outpatient (BNV) | payer OTHER, SELFPAY | PROVIDERS: PCP Internal Medicine; Visit Provider Radiology Diagnostic Radiology | DX: M11.251 Other chondrocalcinosis, right hip (principal) | CPT/HCPCS: 73502 ==

== ENCOUNTER 2024-12-23 14:02 | Outpatient (AMB) | payer OTHER, SELFPAY ==
[2024-12-23 14:08] VITALS: BP 110/60; PULSE 57; O2SAT 93; BMI 24.4
--- NOTE | 2024-12-23 14:08 | MHC.PC.OV ---
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 Required: No Accompanied by: Self / Same As Patient Allergies lactose [LACTOSE] Allergy (Intermediate, Verified 12/23/24 14:09) DIARRHEA amlodipine Allergy (Unknown, Verified 12/23/24 14:09) Unknown famotidine Allergy (Unknown, Verified 12/23/24 14:09) Unknown metoprolol Allergy (Unknown, Verified 12/23/24 14:09) Unknown Medication List - Last Reconciled 12/23/24 by Chemo Ortiz MD aspirin 81 mg PO DAILY atorvastatin 80 mg PO DAILY diclofenac sodium 1% (Arthritis Pain (diclofenac)) 4 grams topical QID diclofenac sodium 1% (Arthritis Pain (diclofenac)) 4 grams topical QID fluticasone furoate-vilanterol 50-25 mcg/dose (Breo Ellipta) 1 inh inhalation Q24H 60 days gabapentin 300 mg PO DAILY lisinopril 40 mg PO DAILY metformin 500 mg PO BIDWMEAL nicotine 1 patch transdermal DAILY paroxetine HCl 10 mg PO DAILY polyethylene glycol 3350 (Miralax) 17 grams PO DAILY psyllium husk (Metamucil) 0.8 grams (2 x 0.4 gram) PO BEDTIME PRN Ventolin HFA 90 mcg/actuation (albuterol sulfate) 1 inh inhalation QID PRN 30 days NS white petrolatum 41% (Aquaphor Healing) 1 appl topical DAILY PRN Tobacco use date assessed: 12/23/24 Fall risk assessment: No Falls in past year Last assessed Fall Risk: 12/23/24 Dental Screening Dental Screen Date: 12/23/24 Did you have a dental visit in the last 12 months?: No Did you have a dental problem in the last 6 months where you did not have access to dental care?: No Was dental information given to patient?: Patient has dentist [facility] Medical History (Updated 12/23/24 @ 14:46 by Chemo Ortiz MD) Colon cancer screening Dysphagia Right groin pain Subdural bleeding Compression fracture of T4 vertebra H. pylori duodenitis BPH (benign prostatic hyperplasia) Hypertension Anxiety and depression Post herpetic neuralgia CPA (cerebellopontine angle) tumor Trigeminal neuralgia Peripheral vascular disease GERD (gastroesophageal reflux disease) Ascending aorta dilatation Hypercholesterolemia Impaired fasting glucose Coronary artery disease Surgical History History of ankle surgery H/O hernia repair Hx laparoscopic cholecystectomy History of esophagogastroduodenoscopy (EGD) H/O colonoscopy History of coronary artery stent placement Family History Father No problems noted. Mother No problems noted. Brother No problems noted. Sister No problems noted. Son No problems noted. Daughter No problems noted. Social History Housing: Apartment Are you a primary customer care associate to a significant other at home: No Do you presently have visiting nurse or other home services: No Alcohol intake: former Year quit: 2019 Patient Tobacco Use Status: Former Tobacco user Tobacco use type: Cigarette Cigarettes Per Day: 6 Years Smoked: 25 +/- Packs per year/per ci.00 e-Cigarette/Vaping Use: Never Used Second Hand Smoke Exposure: No service: No Current occupational status: retired Cognitive needs: No Hearing needs: No Vision needs: Yes Questionnaire PHQ-9 Over the last 2 weeks, how often have you been bothered by any of the following problems? 1. Little interest or pleasure in doing things: not at all 2. Feeling down, depressed, or hopeless: not at all 3. Trouble falling or staying asleep, or sleeping too much: nearly every day 4. Feeling tired or having little energy: not at all 5. Poor appetite or overeating: not at all 6. Feeling bad about yourself - or that you are a failure or have let yourself or your family down: not at all 7. Trouble concentrating on things, such as reading the newspaper or watching television: not at all 8. Moving or speaking so slowly that other people could have noticed. Or the opposite - being so fidgety or restless that you have been moving around a lot more than usual: not at all 9. Thoughts that you would be better off or of hurting yourself in some way: not at all Total score: 3 Source: Developed by Drs. Dante Lambert, gJ Almonte and colleagues, with an educational rut from [facility]. Thrive Questionnaire Date Thrive assessed: 12/23/24 I am a: Patient What is your living situation today?: I have a steady place to live Within the past 12 months, did the food you bought not last and you didn't have the money to get more?: Never true Within the past 12 months, did you worry whether your food would run out before you got money to buy more?: Never true Do you have trouble paying for medicines?: No Do you have trouble getting transportation to medical appointments?: No Do you have trouble paying your heating and electricity bill?: No Do you have trouble taking care of your child, family member or friend?: No Do you have trouble with day-to-day activities such as bathing, preparing meals, shopping, managing finances, etc.?: No Are you currently unemployed and looking for a job?: No Are you interested in more education?: No Please select the resources that you would like help with: None Currently or been in a relationship where the following occur: No concerns reported THRIVE Score: 0 AUDIT C Alcohol Use Questionnaire (AUDIT-C) 1. How often do you have a drink containing alcohol?: Never 3. How often do you have six or more drinks on one occasion?: Never Total Score: 0 LEMUEL-7 AMB Questionnaire LEMUEL-7 Date LEMUEL - 7 assessed: 12/23/24 Feeling nervous, anxious, or on edge: 0 = Not at all Not being able to stop or control worryin = Not at all Worrying too much about different things: 0 = Not at all Trouble relaxin = Not at all Being so restless that it is hard to sit still: 0 = Not at all Becoming easily annoyed or irritable: 0 = Not at all Feeling afraid as if something awful might happen: 0 = Not at all Total LEMUEL-7 score (0-4 normal; 5-9 mild; 10-14 moderate; 15-21 severe): 0 Source: Developed by Drs. Dante Lambert, Jg Almonte and colleagues, with an educational rut from [employer]. Physical exam (Primary Care) Vital Signs: Last Vital Signs Pulse 57 12/23/24 14:08 BP 110/60 12/23/24 14:08 Pulse Ox 93 12/23/24 14:08 Oxygen Delivery Method Room Air 12/23/24 14:08 BMI result Body Mass Index 24.4 Tobacco/Smoking Status: Tobacco use Status Tobacco use date assessed 12/23/24 12/23/24 14:14 Patient Tobacco Use Status Former Tobacco user 12/23/24 14:14 Tobacco use type Cigarette 12/23/24 14:14 e-Cigarette/Vaping Use Never Used 12/23/24 14:14 PHQ-9: PHQ-9 Score PHQ-9: Total score 3 12/23/24 14:41 Thrive Assessment: Date of Thrive Assessment Date Thrive assessed 12/23/24 12/23/24 14:14 Currently or been in a relationship where the following occur: No concerns reported Const General: alert; No acute distress Eyes Conjunctivae: conjunctivae normal Resp Auscultation: clear to auscultation bilaterally Cardio Rate: regular rate Rhythm: regular rhythm GI Inspection: Yes normal to inspection Extrem General: Yes normal to inspection and No edema Coding Level of Care Code Est Pt Level 4 (12998) Complex EM visit Add On G2211 Diagnoses Type 2 diabetes mellitus with hyperglycemia E11.65 COPD (chronic obstructive pulmonary disease) J44.9 Tobacco abuse Z72.0 Essential hypertension I10 Hypertension type: essential hypertension Gastroesophageal reflux disease without esophagitis K21.9 Hypercholesterolemia E78.00 Coronary artery disease involving craig coronary artery of craig heart without angina pectoris I25.10 Associated angina: without angina Coronary Disease-Associated Artery/Lesion type: craig artery [place] vs. transplanted heart: craig heart Assessment & Plan Assessment & Plan (1) Type 2 diabetes mellitus with hyperglycemia: Comment: Dr. Escamilla Code(s): E11.65 - Type 2 diabetes mellitus with hyperglycemia Category: Medical Plan: Decrease the amount of carbohydrate intake, pasta, bread, rice and potatoes are all sugar and that is aside from all the sweet stuff, remember that fruits are good but they are Sweet also. Hemoglobin A1c goal of less than 6.5 (2) COPD (chronic obstructive pulmonary disease): Code(s): J44.9 - Chronic obstructive pulmonary disease, unspecified Category: Medical Plan: Facial patient is on Ventolin inhaler (3) Tobacco abuse: Comment: Stopped march 2024 Code(s): Z72.0 - Tobacco use Category: Medical Plan: Congratulations! (4) Hypertension: Code(s): I10 - Essential (primary) hypertension Category: Medical Qualifiers: Hypertension type: essential hypertension Qualified Code(s): I10 - Essential (primary) hypertension Plan: Continue with blood pressure medication. Decrease salt intake and exercise on lisinopril 40 mg once a day (5) GERD (gastroesophageal reflux disease): Code(s): K21.9 - Gastro-esophageal reflux disease without esophagitis Category: Medical Plan: Avoid the foods that causes that usually spicy foods, tomato products, juices, coffee, soda and foods that your sensitive to. After eating do not lie down, allow 3-4 hours before in lie down. And keep the head of bed above 30 degrees to avoid the acid from going up. (6) Hypercholesterolemia: Code(s): E78.00 - Pure hypercholesterolemia, unspecified Category: Medical Plan: Avoid fried foods, chicken skin, eggs, butter margarine, pastries and meat. Be it pork or beef they have a lot of cholesterol on atorvastatin 80 mg once a day LDL goal of less than 70 and triglyceride of less than 150. (7) Coronary artery disease: Comment: NSTEMI with drug-eluting stent February 2016 Code(s): I25.10 - Atherosclerotic heart disease of craig coronary artery without angina pectoris Category: Medical Qualifiers: Associated angina: without angina Coronary Disease-Associated Artery/Lesion type: craig artery [place] vs. transplanted heart: craig heart Qualified Code(s): I25.10 - Atherosclerotic heart disease of craig coronary artery without angina pectoris Plan: Control the cholesterol, weight, blood pressure, diabetes on aspirin Plan History of Present Illness The patient is an 79-year-old male presenting for management of multiple chronic conditions including diabetes mellitus, hypertension, and hypercholesterolemia. The patient has a history of coronary artery disease and hypercholesterolemia, managed with atorvastatin 80 mg daily, achieving an LDL level of 61 mg/dL, which is below the target of 70 mg/dL. He also has hypertension, controlled with lisinopril 40 mg daily. The patient was recently diagnosed with diabetes mellitus, with a hemoglobin A1c of 7.0%. He reports a diet high in carbohydrates, including rice and bagels, and minimal physical activity, which may contribute to his elevated blood glucose levels. He has been started on metformin, to be taken twice daily with meals, and advised to improve his diet and increase physical activity. The patient has a history of COPD and uses a Ventolin inhaler as needed. He quit smoking in March 2024, which is a positive step in managing his respiratory condition. He also has a history of GERD, managed with lifestyle modifications and medications as needed. The patient underwent a hip x-ray in December, revealing arthropathy of the right hip with minimal joint space narrowing. His last blood work in December showed normal blood count, electrolytes, and renal function, but mildly elevated liver enzymes. Health Maintenance - Colon cancer screening up to date as of August 2023 - Advised to see an eye doctor annually due to diabetes diagnosis Social History - History of tobacco use, quit in March 2024 - Reports minimal physical activity, primarily sedentary lifestyle - Diet high in carbohydrates, including rice and bagels Review of Systems - Endocrine: Reports elevated blood glucose levels, hemoglobin A1c of 7.0% - Respiratory: Reports use of Ventolin inhaler as needed - Musculoskeletal: Reports arthropathy of the right hip Physical Exam Results - Labs: Hemoglobin A1c 7.0%, LDL 61 mg/dL, normal blood count, normal electrolytes, normal renal function, mildly elevated liver enzymes - Imaging: X-ray of the right hip showing arthropathy with minimal joint space narrowing Plan The patient will be started on metformin, to be taken twice daily with meals, to manage his newly diagnosed diabetes mellitus. He is advised to modify his diet by reducing carbohydrate intake and increasing physical activity to help control blood glucose levels. For hypercholesterolemia, the patient will continue atorvastatin 80 mg daily, with a target LDL of less than 70 mg/dL. Hypertension management will continue with lisinopril 40 mg daily. The patient is encouraged to maintain regular follow-ups, including an annual eye exam due to his diabetes diagnosis. He is also advised to inform his eye doctor of his diabetes diagnosis during his upcoming appointment. Patient was informed and verbally consented to the use of an ambient scribe for clinic note documentation during this visit. Discussion Notes I discussed with the patient the diagnosis of diabetes mellitus and the importance of managing blood glucose levels through medication and lifestyle changes. We reviewed the use of metformin and the need for dietary modifications and increased physical activity. I also emphasized the importance of regular follow-ups and the need to inform his eye doctor about his diabetes diagnosis. Patient Instructions - Take metformin twice daily with meals. - Reduce intake of carbohydrates such as pasta, bread, rice, and potatoes. - Increase physical activity; aim for regular exercise. - Schedule and attend an annual eye exam; inform the eye doctor of your diabetes diagnosis. - Follow up in three months for reassessment of blood glucose levels. Medications: New metformin 500 mg PO BIDWMEAL 60 tabs 4RF E11.65 - Type 2 diabetes mellitus with hyperglycemia
== END 2024-12-23 14:50 | disposition home or self-care (01) ==
LOC: HO.HMCH 14:03
PROVIDERS: PCP Internal Medicine; Visit Provider Internal Medicine
DX: E11.65 Type 2 diabetes mellitus with hyperglycemia (principal); J44.9 Chronic obstructive pulmonary disease, unspecified; Z72.0 Tobacco use; I10 Essential (primary) hypertension; K21.9 Gastro-esophageal reflux disease without esophagitis; E78.00 Pure hypercholesterolemia, unspecified; I25.10 Atherosclerotic heart disease of native coronary artery without angina pectoris

== ENCOUNTER → 2024-12-23 14:02 | Outpatient (BNVA) | payer OTHER, SELFPAY | PROVIDERS: PCP Internal Medicine; Visit Provider Internal Medicine | DX: K21.9 Gastro-esophageal reflux disease without esophagitis (principal); I25.10 Atherosclerotic heart disease of native coronary artery without angina pectoris; E11.65 Type 2 diabetes mellitus with hyperglycemia; J44.9 Chronic obstructive pulmonary disease, unspecified; I10 Essential (primary) hypertension; E78.00 Pure hypercholesterolemia, unspecified; Z79.899 Other long term (current) drug therapy; Z87.891 Personal history of nicotine dependence | CPT/HCPCS: 96127; 99212 ==

== ENCOUNTER 2024-12-27 13:23 | Outpatient (AMB) | payer OTHER, SELFPAY ==
--- NOTE | 2024-12-27 13:25 | MHC.OFFVIS ---
Vital Signs 12/27/24 13:27 Height 5 ft 4 in Weight 138 lb BMI 23.7 BP 122/62 Blood Pressure Location Rt brachial Position Sitting Pulse 63 Pulse Source Pulse Oximeter Pulse Oximetry (%) 94 Intake Visit Reasons: COPD Allergies lactose (LACTOSE) Allergy (Intermediate, Verified 12/23/24 14:09) DIARRHEA amlodipine Allergy (Unknown, Verified 12/23/24 14:09) Unknown famotidine Allergy (Unknown, Verified 12/23/24 14:09) Unknown metoprolol Allergy (Unknown, Verified 12/23/24 14:09) Unknown HPI Comments Details: The patient is here for pulmonary evaluation. The patient is an 79-year-old gentleman who presents with worsening respiratory symptoms and cough. He states that he had been having a dry cough that keeps him up at nighttime. Moderate severity. In addition to that has been noticing some increasing shortness of breath. [id number] severity. He has tried multiple inhalers in the past including Breo. Although he feels it is too harsh as it causes irritation to his. Therefore he stopped taking it. The Ventolin is helpful for him. The patient did have a chest x-ray which we personally reviewed. It appears that he has some hyperinflation of the lungs although I explained to him that this is not a definitive diagnosis of COPD. He will need to have pulmonary function studies to make the proper diagnosis. In the meantime I noticed that part of his cardiac medications include lisinopril 40 mg daily. This may be in part playing a role in his dry persistent cough. Therefore I did reach out to his primary care to switch him to an ARB. In addition to that he can try the Tessalon Perles as needed. He will start the patient on Bevespi he can try that as a maintenance medication. He will undergo pulmonary function studies and return in 3 months. If any issues arise he will call for an [facility] Medical History (Updated 12/29/24 @ 22:18 by Artis Salcedo MD) Chronic cough Colon cancer screening Dysphagia Right groin pain Subdural bleeding Compression fracture of T4 vertebra H. pylori duodenitis BPH (benign prostatic hyperplasia) Hypertension Anxiety and depression Post herpetic neuralgia CPA (cerebellopontine angle) tumor Trigeminal neuralgia Peripheral vascular disease GERD (gastroesophageal reflux disease) Ascending aorta dilatation Hypercholesterolemia Impaired fasting glucose Coronary artery disease Surgical History History of ankle surgery H/O hernia repair Hx laparoscopic cholecystectomy History of esophagogastroduodenoscopy (EGD) H/O colonoscopy History of coronary artery stent placement Family History Father No problems noted. Mother No problems noted. Brother No problems noted. Sister No problems noted. Son No problems noted. Daughter No problems noted. Social History (Updated 12/27/24 @ 13:33 by SUSHIL Oneil) Housing: Apartment Are you a primary healthcare customer service to a significant other at home: No Do you presently have visiting nurse or other home services: No Alcohol intake: former Year quit: 2019 Patient Tobacco Use Status: Former Tobacco user Tobacco use type: Cigarette Cigarettes Per Day: 6 Years Smoked: started age 27, 0.5 PPD, quit 2023 e-Cigarette/Vaping Use: Never Used Second Hand Smoke Exposure: No service: No Current occupational status: retired Cognitive needs: No Hearing needs: No Vision needs: Yes Review of Systems Const Denies chills, Denies fatigue, Denies fever(s), Denies frequent falls, Denies weakness, Denies weight gain and Denies weight loss ENT Denies dizziness Card Denies chest pain, Denies leg edema, Denies lightheadedness, Denies palpitations, Denies dyspnea and Denies dyspnea on exertion Resp Denies cough, Denies dyspnea and Denies dyspnea on exertion GI Denies hematochezia Musc Denies abnormal gait, Denies muscle weakness, Denies numbness, Denies radiating pain into limb and Denies tingling Neuro Denies abnormal gait, Denies dizziness, Denies frequent falls, Denies numbness, Denies tingling and Denies weakness Endo Denies fatigue and Denies palpitations Physical Exam Vital Signs: Last Vital Signs Pulse 63 12/27/24 13:27 BP 122/62 12/27/24 13:27 Pulse Ox 94 12/27/24 13:27 BMI result Body Mass Index 23.7 Const General: comfortable and no acute distress Orientation/consciousness: patient oriented x3 Neck Neck: Yes no lymphadenopathy Resp Effort & Inspection: prolonged expiratory phase Auscultation: wheezes and diminished lung sounds Cardio Rhythm: regular rhythm GI Other: Left groin inguinal hernia palpable with Valsalva, reducible, no tenderness Palpation (GI): Soft to palpation, nontender and no guarding Neuro General: patient oriented x3 Assessment & Plan Assessment & Plan (1) COPD (chronic obstructive pulmonary disease): Code(s): J44.9 - Chronic obstructive pulmonary disease, unspecified Category: Medical Qualifiers: COPD type: chronic bronchitis Chronic bronchitis type: simple Qualified Code(s): J41.0 - Simple chronic bronchitis (2) Chronic cough: Code(s): R05.3 - Chronic cough Category: Medical Plan start Bevespi TRACIE as needed Tessalon pearls JAMAL->ARB PFTs F/U 3 months Orders: Orders PFT pulmonary function test Today J41.0 - Simple chronic bronchitis Medications: New benzonatate 200 mg PO BID PRN 30 caps 0RF cough 30 days glycopyrrolate-formoterol 9-4.8 mcg (Bevespi Aerosphere) 2 puffs inhalation Q12H 10.7 grams 11RF 30 days Discontinued lisinopril Discontinued Reason: Doctor's Order 40 mg PO DAILY 90 tabs 2RF Coding Level of Care Code New Pt Level 4 (65054) Diagnoses Simple chronic bronchitis J41.0 COPD type: chronic bronchitis Chronic bronchitis type: simple Chronic cough R05.3 Time Spent (min) 40
[2024-12-27 13:27] VITALS: BP 122/62; PULSE 63; O2SAT 94; BMI 23.7
== END 2024-12-27 13:52 | disposition home or self-care (01) ==
LOC: HO.HPS 13:24
PROVIDERS: PCP Internal Medicine; Visit Provider Hospitalist
DX: J41.0 Simple chronic bronchitis (principal)
CPT/HCPCS: 99204

== ENCOUNTER → 2024-12-27 13:23 | Outpatient (BNVA) | payer OTHER, SELFPAY | PROVIDERS: PCP Internal Medicine; Visit Provider Hospitalist | DX: J41.0 Simple chronic bronchitis (principal) | CPT/HCPCS: 99202 ==

== ENCOUNTER 2025-03-14 14:14 | Outpatient (AMB) | payer OTHER, SELFPAY ==
[2025-03-14 14:23] VITALS: BMI 23.3
--- NOTE | 2025-03-14 14:23 | A.OFFVIS_ITS ---
Vital Signs 03/14/25 14:23 Height 5 ft 4 in Weight 136 lb BMI 23.3 Intake Visit Reasons: New Patient- Right Plantar Fasciitis Intake Note: Enrico is a 80 year old male who presents today as a new patient for an evaluation of his right foot plantar fasciitis. Patient reports ongoing pain for about 3 years. he mentions he feels a bilateral burning and pin and needle on t he plantar aspect of both feet. Allergies lactose (LACTOSE) Allergy (Intermediate, Verified 03/14/25 14:24) DIARRHEA amlodipine Allergy (Unknown, Verified 03/14/25 14:24) Unknown famotidine Allergy (Unknown, Verified 03/14/25 14:24) Unknown metoprolol Allergy (Unknown, Verified 03/14/25 14:24) Unknown Medication List - Last Reconciled 03/14/25 by Dianne Simpson DPM aspirin 81 mg PO DAILY atorvastatin 80 mg PO DAILY benzonatate 200 mg PO BID PRN 30 days diclofenac sodium 1% (Arthritis Pain (diclofenac)) 4 grams topical QID diclofenac sodium 1% (Arthritis Pain (diclofenac)) 4 grams topical QID fluticasone furoate-vilanterol 50-25 mcg/dose (Breo Ellipta) 1 inh inhalation Q24H 60 days gabapentin 300 mg PO DAILY glycopyrrolate-formoterol 9-4.8 mcg (Bevespi Aerosphere) 2 puffs inhalation Q12H 30 days metformin 500 mg PO BIDWMEAL paroxetine HCl 10 mg PO DAILY polyethylene glycol 3350 (Miralax) 17 grams PO DAILY Ventolin HFA 90 mcg/actuation (albuterol sulfate) 1 inh inhalation QID PRN 30 days NS HPI Comments Details: Patient is an 80-year-old male with a past medical history as seen below who presents to the office today for bilateral foot pain and numbness and tingling. Patient was accompanied by his son who assisted with interpretation. Patient states he was recently diagnosed with diabetes but has been experiencing numbn ess tingling and burning to the feet bilaterally. Patient has a history of plantar fasciitis and states he currently does not feel any pain to the plantar aspect of the heels. He denies any inciting injury to the feet. Patient was seen wearing sneakers. Patient currently is taking gabapentin and states he was using an ointment for the numbness tingling and burning pain with some relief. He denies any other pedal concern and denies any nausea vomiting fever or chills. [facility] Medical History (Updated 03/14/25 @ 14:43 by Dianne Simpson DPM) Onychomycosis Pain in both feet Nail dystrophy Diabetic peripheral neuropathy Chronic cough Colon cancer screening Dysphagia Right groin pain Subdural bleeding Compression fracture of T4 vertebra H. pylori duodenitis BPH (benign prostatic hyperplasia) Hypertension Anxiety and depression Post herpetic neuralgia CPA (cerebellopontine angle) tumor Trigeminal neuralgia Peripheral vascular disease GERD (gastroesophageal reflux disease) Ascending aorta dilatation Hypercholesterolemia Impaired fasting glucose Coronary artery disease Surgical History History of ankle surgery H/O hernia repair Hx laparoscopic cholecystectomy History of esophagogastroduodenoscopy (EGD) H/O colonoscopy History of coronary artery stent placement Family History Father No problems noted. Mother No problems noted. Brother No problems noted. Sister No problems noted. Son No problems noted. Daughter No problems noted. Social History (Updated 12/27/24 @ 13:33 by SUSHIL Oneil) Housing: Apartment Are you a primary physician locums urgent care to a significant other at home: No Do you presently have visiting nurse or other home services: No Alcohol intake: former Year quit: 2019 Patient Tobacco Use Status: Former Tobacco user Tobacco use type: Cigarette Cigarettes Per Day: 6 Years Smoked: started age 27, 0.5 PPD, quit 2023 e-Cigarette/Vaping Use: Never Used Second Hand Smoke Exposure: No service: No Current occupational status: retired Cognitive needs: No Hearing needs: No Vision needs: Yes Review of Systems Const All systems reviewed & are unremarkable except as noted in HPI and below Physical Exam Vital Signs: BMI result Body Mass Index 23.3 Extrem Other: Bilateral lower extremity focused exam: Derm: No open wounds lesions or abrasions. Skin turgor within normal limits for age. No erythema or edema noted. No clinical signs of infection. No interdigital webspace maceration noted. Toenails x10 slightly discolored and elongated with thickening and subungual debris (worse to the left hallux). Vascular: DP/PT pulses palpable. Capillary refill time less than 3 seconds. Minimal varicosities noted. Neuro: Protective sensations grossly diminished to light touch and [place]- Pam monofilament. Musculoskeletal: Mild hammertoe deformities noted. Minimal pain on palpation to the plantar aspect of the feet. Range of motion of the forefoot and hindfoot within normal limits. Office Procedures AMB Debridement/Avulsion Podia Details: Debrided toenails x10 using a nail Nipper with no incidents. [id number]-[id number] of Nail 6+ Procedure code (CPT) selection complete Results Reviewed Results Reviewed: Patient's A1c is 7. Discussed with patient affects of diabetes to the feet i ncluding diabetic neuropathy, poor wound healing, and adverse changes to the nails. Assessment & Plan Assessment & Plan (1) Type 2 diabetes mellitus with hyperglycemia: Comment: Dr. Escamilla Code(s): E11.65 - Type 2 diabetes mellitus with hyperglycemia Category: Medical (2) Diabetic peripheral neuropathy: Code(s): E11.42 - Type 2 diabetes mellitus with diabetic polyneuropathy Category: Medical (3) Pain in both feet: Code(s): M79.671 - Pain in right foot; M79.672 - Pain in left foot Category: Medical (4) Nail dystrophy: Code(s): L60.3 - Nail dystrophy Category: Medical (5) Onychomycosis: Code(s): B35.1 - Tinea unguium Category: Medical Plan Discussed with patient affects of the diabetes to the lower extremities including poor wound healing, neuropathy, and dystrophic changes to the nails. Advised patient to continue to monitor his glucose daily and to continue taking gabapentin and metformin as directed. Advised patient to monitor his feet daily and keep them clean and dry. Advised patient to avoid barefoot walking and wear supportive shoe gear. Recommend routine nail care at this time. Debrided patient's toenails X 10 using a nail Nipper with no incidents. Order diabetic shoes for patient. Patient is to return to the office in 9 weeks for continued routine nail care and diabetic foot evaluation. Orders: Orders AMB Debridement/Avulsion Podiatry Today B35.1 - Tinea unguium, E11.42 - Type 2 diabetes mellitus with diabetic polyneuropathy, E11.65 - Type 2 diabetes mellitus with hyperglycemia, L60.3 - Nail dystrophy, M79.671 - Pain in right foot, M79.672 - Pain in left foot Medications: New [Diabetic Shoes] Please provide 1 pair of shoes with x3 inserts QD; Please provide diabetic shoes (1 pair with inserts x3) 1 units 0RF diabetic peripheral neuropathy E11.42 - Type 2 diabetes mellitus with diabetic polyneuropathy, E11.65 - Type 2 diabetes mellitus with hyperglycemia, M79.671 - Pain in right foot, M79.672 - Pain in left foot Coding Level of Care Code New Pt Level 4 (28249) Diagnoses Type 2 diabetes mellitus with hyperglycemia E11.65 Diabetic peripheral neuropathy E11.42 Pain in both feet M79.671; M79.672 Nail dystrophy L60.3 Onychomycosis B35.1 CPT Codes Skin Debridement - CPT: 24957-Apnprgolnyn of Nail 6+ ([id number]) Time Spent (min) 45
== END 2025-03-14 14:56 | disposition home or self-care (01) ==
LOC: HO.HPODS 14:15
PROVIDERS: PCP Internal Medicine; Visit Provider Student in an Organized Health Care Education/Training Program
DX: E11.42 Type 2 diabetes mellitus with diabetic polyneuropathy (principal); E11.65 Type 2 diabetes mellitus with hyperglycemia; L60.3 Nail dystrophy; B35.1 Tinea unguium; M79.671 Pain in right foot; M79.672 Pain in left foot
CPT/HCPCS: 11721; 99203

== ENCOUNTER → 2025-03-14 14:14 | Outpatient (BNVA) | payer OTHER, SELFPAY | PROVIDERS: PCP Internal Medicine; Visit Provider Student in an Organized Health Care Education/Training Program | DX: E11.65 Type 2 diabetes mellitus with hyperglycemia (principal); E11.42 Type 2 diabetes mellitus with diabetic polyneuropathy; L60.3 Nail dystrophy; M79.671 Pain in right foot; M79.672 Pain in left foot; B35.1 Tinea unguium | CPT/HCPCS: 11721; 99202 ==

== ENCOUNTER 2025-03-19 12:31 | Outpatient (AMB) | payer OTHER, SELFPAY ==
[2025-03-19 13:29] VITALS: BP 118/64; PULSE 85; TEMP 36.3; O2SAT 95; BMI 22.4
--- NOTE | 2025-03-19 13:29 | A.OFFPC_ITS ---
Vital Signs 03/19/25 13:29 Height 5 ft 4 in Weight 130 lb 6 oz BMI 22.4 BP 118/64 Blood Pressure Location Lt brachial Position Sitting Pulse 85 Pulse Source Pulse Oximeter Temp 97.3 F Temp Source Temporal Artery Scan Pulse Oximetry (%) 95 Oxygen Delivery Method Room Air Intake Visit Reasons: physical Allergies lactose (LACTOSE) Allergy (Intermediate, Verified 03/19/25 13:33) DIARRHEA amlodipine Allergy (Unknown, Verified 03/19/25 13:33) Unknown famotidine Allergy (Unknown, Verified 03/19/25 13:33) Unknown metoprolol Allergy (Unknown, Verified 03/19/25 13:33) Unknown metformin Adverse Reaction (Intermediate, Unverified 03/19/25 13:50) Diarrhea Medication List - Last Reconciled 03/19/25 by Chemo Ortiz MD aspirin 81 mg PO DAILY atorvastatin 80 mg PO DAILY [Diabetic Shoes Please provide 1 pair of shoes with x3 inserts QD; Please provide diabetic shoes (1 pair with inserts x3)] diclofenac sodium 1% (Arthritis Pain (diclofenac)) 4 grams topical QID diclofenac sodium 1% (Arthritis Pain (diclofenac)) 4 grams topical QID glycopyrrolate-formoterol 9-4.8 mcg (Bevespi Aerosphere) 2 puffs inhalation Q12H 30 days polyethylene glycol 3350 (Miralax) 17 grams PO DAILY Ventolin HFA 90 mcg/actuation (albuterol sulfate) 1 inh inhalation QID PRN 30 days NS Tobacco use date assessed: 03/19/25 Fall risk assessment: No Falls in past year Last assessed Fall Risk: 03/19/25 Dental Screening Dental Screen Date: 03/19/25 Did you have a dental visit in the last 12 months?: Yes Did you have a dental problem in the last 6 months where you did not have access to dental care?: No Was dental information given to patient?: Patient has dentist HPI physical HPI Details noted weight loss, poor [facility] Medical History (Updated 03/19/25 @ 14:01 by Chemo Ortiz MD) Impaired fasting glucose Annual physical exam Onychomycosis Pain in both feet Nail dystrophy Diabetic peripheral neuropathy Chronic cough Colon cancer screening Dysphagia Right groin pain Subdural bleeding Compression fracture of T4 vertebra H. pylori duodenitis BPH (benign prostatic hyperplasia) Hypertension Anxiety and depression Post herpetic neuralgia CPA (cerebellopontine angle) tumor Trigeminal neuralgia Peripheral vascular disease GERD (gastroesophageal reflux disease) Ascending aorta dilatation Hypercholesterolemia Coronary artery disease Surgical History History of ankle surgery H/O hernia repair Hx laparoscopic cholecystectomy History of esophagogastroduodenoscopy (EGD) H/O colonoscopy History of coronary artery stent placement Family History Father No problems noted. Mother No problems noted. Brother No problems noted. Sister No problems noted. Son No problems noted. Daughter No problems noted. Social History Housing: Apartment Are you a primary before and after school daycare worker to a significant other at home: No Do you presently have visiting nurse or other home services: No Alcohol intake: former Year quit: 2019 Patient Tobacco Use Status: Former Tobacco user Tobacco use type: Cigarette Cigarettes Per Day: 6 Years Smoked: started age 27, 0.5 PPD, quit 2023 e-Cigarette/Vaping Use: Never Used Second Hand Smoke Exposure: No service: No Current occupational status: retired Cognitive needs: No Hearing needs: No Vision needs: Yes Questionnaire PHQ-9 Over the last 2 weeks, how often have you been bothered by any of the following problems? 1. Little interest or pleasure in doing things: not at all 2. Feeling down, depressed, or hopeless: not at all 3. Trouble falling or staying asleep, or sleeping too much: nearly every day 4. Feeling tired or having little energy: not at all 5. Poor appetite or overeating: not at all 6. Feeling bad about yourself - or that you are a failure or have let yourself or your family down: not at all 7. Trouble concentrating on things, such as reading the newspaper or watching television: not at all 8. Moving or speaking so slowly that other people could have noticed. Or the opposite - being so fidgety or restless that you have been moving around a lot more than usual: not at all 9. Thoughts that you would be better off or of hurting yourself in some way: not at all Total score: 3 Source: Developed by Drs. Dante L. Gypsy Lambert Kurt Kroenke and colleagues, with an educational rut from [employer]. Thrive Questionnaire Date Thrive assessed: 12/11/24 I am a: Patient What is your living situation today?: I have a steady place to live Within the past 12 months, did the food you bought not last and you didn't have the money to get more?: Never true Within the past 12 months, did you worry whether your food would run out before you got money to buy more?: Never true Do you have trouble paying for medicines?: No Do you have trouble getting transportation to medical appointments?: No Do you have trouble paying your heating and electricity bill?: No Do you have trouble taking care of your child, family member or friend?: No Do you have trouble with day-to-day activities such as bathing, preparing meals, shopping, managing finances, etc.?: No Are you currently unemployed and looking for a job?: No Are you interested in more education?: No Please select the resources that you would like help with: None Currently or been in a relationship where the following occur: No concerns reported THRIVE Score: 0 AUDIT C Alcohol Use Questionnaire (AUDIT-C) 1. How often do you have a drink containing alcohol?: Never 3. How often do you have six or more drinks on one occasion?: Never Total Score: 0 LEMUEL-7 AMB Questionnaire LEMUEL-7 Date LEMUEL - 7 assessed: 12/23/24 Feeling nervous, anxious, or on edge: 0 = Not at all Not being able to stop or control worryin = Not at all Worrying too much about different things: 0 = Not at all Trouble relaxin = Not at all Being so restless that it is hard to sit still: 0 = Not at all Becoming easily annoyed or irritable: 0 = Not at all Feeling afraid as if something awful might happen: 0 = Not at all Total LEMUEL-7 score (0-4 normal; 5-9 mild; 10-14 moderate; 15-21 severe): 0 Source: Developed by [employer]psy [employer] Kurt Kroenke and colleagues, with an educational rut from [employer]. Review of Systems Const Denies poor appetite and Denies weakness Eyes Denies no additional complaints ENT Reports Normal hearing present, Denies dizziness, Denies nasal congestion, Denies tinnitus and Denies sore throat Card Denies chest pain, Denies syncope, Denies rapid heart rate and Denies dyspnea Resp Denies cough and Denies dyspnea GI Denies change in stool character, Reports constipation, Denies diarrhea, Denies nausea and Denies vomiting Denies dysuria and Denies urinary frequency Neuro Reports Normal hearing present, Denies confusion, Denies dizziness, Denies syncope and Denies weakness Psych Denies confusion Physical exam (Primary Care) Vital Signs: Last Vital Signs Temp 97.3 F 03/19/25 13:29 Pulse 85 03/19/25 13:29 BP 118/64 03/19/25 13:29 Pulse Ox 95 03/19/25 13:29 Oxygen Delivery Method Room Air 03/19/25 13:29 BMI result Body Mass Index 22.4 Tobacco/Smoking Status: Tobacco use Status Tobacco use date assessed 03/19/25 03/19/25 13:35 Patient Tobacco Use Status Former Tobacco user 03/19/25 13:35 Tobacco use type Cigarette 03/19/25 13:35 e-Cigarette/Vaping Use Never Used 03/19/25 13:35 PHQ-9: PHQ-9 Score PHQ-9: Total score 3 03/19/25 13:35 Thrive Assessment: Date of Thrive Assessment Date Thrive assessed 12/11/24 03/19/25 13:35 Currently or been in a relationship where the following occur: No concerns reported Const General: No confusion Orientation/consciousness: No confusion HENMT Head: Yes normocephalic Ears: external ears normal and TM's normal bilaterally Face and sinus: Yes normal facial exam Mouth: moist mucous membranes Throat: Yes tonsils normal Eyes Conjunctivae: conjunctivae normal Pupils: Equal, round and reactive pupils present and Pupil accommodation reflex normal Direct Ophthalmoscopy: normal light reflex Neck Neck: No lymphadenopathy Thyroid: Thyroid normal Chest Chest palpation & inspection: normal inspection of the chest Resp Effort & Inspection: normal respiratory effort and no audible wheezes Auscultation: clear to auscultation bilaterally, no crackles, no wheezes and lung sounds not diminished Cardio Rate: regular rate Rhythm: regular rhythm Peripheral pulses: radial pulses present and dorsalis pedis present GI Other: declined rectal and groin exam, pedal pulse weak but equal, pin prick good Palpation (GI): no masses Auscultation: normal bowel sounds and normoactive bowel sounds Rectal Exam - Male: Yes deferred Skin General skin exam: no rashes or lesions noted Rashes: no rashes Neuro General: No confusion Cranial nerves: Yes Equal, round and reactive pupils present and Yes Normal hearing present Cognition (Neuro): normal cognition Gait exam (Neuro): Normal gait present Motor exam (neuro): 5/5 motor strength present throughout Deep tendon reflexes (DTR's): Right brachioradialis reflex intensity grade: 2+, Left brachioradialis reflex intensity grade: 2+, Right patellar reflex intensity grade: 2+ and Left patellar reflex intensity grade: 2+ Extrem General: No edema Results AMB Hemoglobin A1c AMB Hemoglobin A1c 6.3 % Last Edit by Tamiko Wheatley CMA on 03/19/25 13:37 Results Reviewed Results Reviewed: Laboratory Last Values Hgb A1c (Clinic) 6.3 % (4.0-6.0) H 03/19/25 13:36 Coding Level of Care Code Est Pt Prev Care >65y(78799) Diagnoses Annual physical exam Z00.00 Simple chronic bronchitis J41.0 COPD type: chronic bronchitis Chronic bronchitis type: simple 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 transplanted heart: [place] heart Associated angina: without angina Essential hypertension I10 Hypertension type: essential hypertension Hypercholesterolemia E78.00 Generalized anxiety disorder F41.1 Peripheral neuropathy G62.9 Assessment & Plan Assessment & Plan (1) Annual physical exam: Code(s): Z00.00 - Encounter for general adult medical examination without abnormal findings Category: Medical Plan: Patient is advised to eat healthy, keep well hydrated, keep active and have adequate sleep. (2) COPD (chronic obstructive pulmonary disease): Code(s): J44.9 - Chronic obstructive pulmonary disease, unspecified Category: Medical Qualifiers: COPD type: chronic bronchitis Chronic bronchitis type: simple Qualified Code(s): J41.0 - Simple chronic bronchitis Plan: Patient follows up with Pulmonary placed on Bevespi and short-acting beta agonist (3) CPA (cerebellopontine angle) tumor: Comment: October 2017, March 2019, 04/2023 No acute intracranial abnormalities. 2. Mild underlying microangiopathy and generalized cerebral volume loss. 3. A mass along the right cerebellopontine angle suggestive of an underlying schwannoma have mildly decreased in size compared to exam from 2019. 4. No additional abnormal intracranial enhancement. Code(s): D33.3 - Benign neoplasm of cranial nerves Category: Medical Plan: Continuing to monitor (4) GERD (gastroesophageal reflux disease): Code(s): K21.9 - Gastro-esophageal reflux disease without esophagitis Category: Medical Plan: Avoid the foods that causes that usually spicy foods, tomato products, juices, coffee, soda and foods that your sensitive to. After eating do not lie down, allow 3-4 hours before in lie down. And keep the head of bed above 30 degrees to avoid the acid from going up. (5) Excessive salivation: Comment: Submandibular gland excision 05/2020 Code(s): K11.7 - Disturbances of salivary secretion Category: Medical Plan: Supportive treatment (6) Type 2 diabetes mellitus with hyperglycemia: Comment: Dr. Escamilla Code(s): E11.65 - Type 2 diabetes mellitus with hyperglycemia Category: Medical Plan: Decrease the amount of carbohydrate intake, pasta, bread, rice and potatoes are all sugar and that is aside from all the sweet stuff, remember that fruits are good but they are Sweet also. Hemoglobin A1c goal of less than 7.0 patient is on metformin 500 mg twice a day (7) Coronary artery disease: Comment: NSTEMI with drug-eluting stent February 2016 Code(s): I25.10 - Atherosclerotic heart disease of [place] coronary artery without angina pectoris Category: Medical Qualifiers: Coronary Disease-Associated Artery/Lesion type: [place] artery [place] vs. transplanted heart: [place] heart Associated angina: without angina Qualified Code(s): I25.10 - Atherosclerotic heart disease of [place] coronary artery without angina pectoris Plan: Control the cholesterol, weight, blood pressure, diabetes (8) Hypertension: Code(s): I10 - Essential (primary) hypertension Category: Medical Qualifiers: Hypertension type: essential hypertension Qualified Code(s): I10 - Essential (primary) hypertension Plan: Continuing to monitor blood pressure without medication (9) Hypercholesterolemia: Code(s): E78.00 - Pure hypercholesterolemia, unspecified Category: Medical Plan: Avoid fried foods, chicken skin, eggs, butter margarine, pastries and meat. Be it pork or beef they have a lot of cholesterol LDL goal of less than 70 and triglyceride of less than 150 on atorvastatin 80 mg once a day (10) Generalized anxiety disorder: Comment: Declined counseling referral Code(s): F41.1 - Generalized anxiety disorder Category: Medical Plan: Continue with present medication (11) Peripheral neuropathy: Code(s): G62.9 - Polyneuropathy, unspecified Category: Medical Plan History of Present Illness The patient is an 80-year-old male presenting for a physical examination. He has a history of coronary artery disease, hypercholesterolemia, gastroesophageal reflux disease, and hypertension. 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 He has a history of smoking but ceased in March 2024. The patient also has benign prostatic hyperplasia, anxiety disorder, and a history of esophageal stricture. The patient has a history of tubular adenoma of the colon, with the last colonoscopy performed in August 2023. He also has chronic obstructive pulmonary disease and diabetes mellitus. In December 2024, the patient was seen by a fretted string instrument repairer for COPD and was placed on Bevespi and albuterol. Pulmonary function testing was advised. Blood work done on December 12 showed normal blood count, normal electrolytes, and good renal function. Hemoglobin A1c was 6.3, fasting blood sugar was 123, and liver enzymes were mildly elevated at 40. Cholesterol levels showed an LDL of 61, with B12, folic acid, and thyroid levels within normal limits. Health Maintenance - Colonoscopy performed in August 2023 for tubular adenoma of the colon - Pulmonary function testing advised for COPD management Social History - Smoking: Patient is a former smoker, ceased in March 2024 Review of Systems - General: Reports excessive salivation - Respiratory: Reports COPD, denies current smoking Physical Exam General: Cooperative, healthy appearing, comfortable, no acute distress and well developed Orientation: Patient oriented x3 Limitations: No limitations Head: Normal to inspection Ears: Hearing grossly normal bilaterally Nose: Normal external nose present Face and sinus: Normal facial exam Eyes: Appearance normal, both eyes and all related structures Neck: Normal visual inspection and Yes full ROM Respiratory: Normal respiratory effort and able to speak in complete sentences. Clear to auscultation bilaterally Cardiovascular: Regular rate and rhythm. Normal S1 and S2 GI: Normal to inspection. Soft to palpation and nontender Skin: No rashes or lesions noted Neuro: Patient oriented x3 Extremities: Normal to inspection Results - Labs: Normal blood count, normal electrolytes, good renal function, hemoglobin A1c 6.3, fasting blood sugar 123, liver enzymes mildly elevated at 40, LDL 61, B12, folic acid, and thyroid levels within normal limits Plan Patient was informed and verbally consented to the use of an ambient scribe for clinic note documentation during this visit. 1. Chronic Obstructive Pulmonary Disease (Copd) The patient was seen by a fretted string instrument repairer in December 2024 and was placed on Bevespi and albuterol for COPD management. Pulmonary function testing was advised to monitor the condition. 2. Diabetes Mellitus The patient's hemoglobin A1c was noted to be 6.3, with a fasting blood sugar of 123. The patient is on metformin 500 mg twice a day with a goal to maintain hemoglobin A1c below 7.0. 3. Hypercholesterolemia The patient's LDL cholesterol level is 61, and the goal is to maintain LDL below 70 and triglycerides below 150. The patient is on atorvastatin 80 mg once a day to manage cholesterol levels. 4. Hypertension The plan is to continue monitoring blood pressure without medication at this time. 5. Gastroesophageal Reflux Disease (Gerd) The plan is to continue with supportive treatment for gastroesophageal reflux disease. 6. Coronary Artery Disease The patient is advised to continue with current medications for coronary artery disease management. Discussion Notes Patient Instructions Orders: Orders AMB Hemoglobin A1c Today Z13.9 - Encounter for screening, unspecified Medications: New gabapentin 100 mg PO BEDTIME 30 caps 2RF Discontinued metformin Discontinued Reason: Doctor's Order 500 mg PO BIDWMEAL 60 tabs 4RF E11.65 - Type 2 diabetes mellitus with hyperglycemia
== END 2025-03-19 14:08 | disposition home or self-care (01) ==
LOC: HO.HMCH 12:31
PROVIDERS: PCP Internal Medicine; Visit Provider Internal Medicine
DX: Z00.00 Encounter for general adult medical examination without abnormal findings (principal); J41.0 Simple chronic bronchitis; D33.3 Benign neoplasm of cranial nerves; E11.65 Type 2 diabetes mellitus with hyperglycemia; K21.9 Gastro-esophageal reflux disease without esophagitis; K11.7 Disturbances of salivary secretion; I25.10 Atherosclerotic heart disease of native coronary artery without angina pectoris; I10 Essential (primary) hypertension; E78.00 Pure hypercholesterolemia, unspecified; F41.1 Generalized anxiety disorder; G62.9 Polyneuropathy, unspecified

== ENCOUNTER → 2025-03-19 12:31 | Outpatient (BNVA) | payer OTHER, SELFPAY | PROVIDERS: PCP Internal Medicine; Visit Provider Internal Medicine | DX: Z00.00 Encounter for general adult medical examination without abnormal findings (principal); J41.0 Simple chronic bronchitis; D33.3 Benign neoplasm of cranial nerves; K21.9 Gastro-esophageal reflux disease without esophagitis; K11.7 Disturbances of salivary secretion; E11.65 Type 2 diabetes mellitus with hyperglycemia; E11.40 Type 2 diabetes mellitus with diabetic neuropathy, unspecified; I25.10 Atherosclerotic heart disease of native coronary artery without angina pectoris; I10 Essential (primary) hypertension; E78.00 Pure hypercholesterolemia, unspecified; F41.1 Generalized anxiety disorder; I25.2 Old myocardial infarction; Z79.84 Long term (current) use of oral hypoglycemic drugs; Z13.30 Encounter for screening examination for mental health and behavioral disorders, unspecified | CPT/HCPCS: 83036; 96127; 99397 ==

== ENCOUNTER 2025-03-26 12:52 | Outpatient (REF) | payer OTHER, SELFPAY ==
--- NOTE | 2025-03-26 13:05 | PFT_ITS ---
Flows: FEV1: 98 % of predicted at 2.28 L FVC: 101 % of predicted at 3.13 L FEV1/FVC: 73 % Bronchodilator response: Absent Volumes: Total lung capacity: 89 % of predicted at 5.11 L Residual volume: 84 % of predicted at 1.91 L Slow vital capacity: 98 % of predicted at 3.20 L Expiratory reserve volume: 87 % of predicted at 0.79 L Diffusion capacity: Moderately decreased Impression: No obstructive or restrictive ventilatory defect. No bronchodilator response. Decreased diffusion capacity suggests emphysema. MTDD
[2025-03-26 13:43] VITALS: PULSE 58; O2SAT 96
== END 2025-03-26 12:53 | disposition home or self-care (01) ==
LOC: HO.RESP 12:52
PROVIDERS: PCP Internal Medicine; Visit Provider Hospitalist
DX: J41.0 Simple chronic bronchitis (principal)
CPT/HCPCS: 94010; 94640; 94727; 94729

== ENCOUNTER → 2025-03-26 13:05 | Outpatient (BNV) | payer OTHER, SELFPAY | PROVIDERS: PCP Internal Medicine; Visit Provider Internal Medicine Pulmonary Disease | DX: J41.0 Simple chronic bronchitis (principal) | CPT/HCPCS: 94060; 94727; 94729 ==

== ENCOUNTER 2025-03-27 09:40 | Outpatient (AMB) | payer OTHER, SELFPAY ==
--- NOTE | 2025-03-27 09:50 | MHC.PC.OV ---
Vital Signs 03/27/25 09:51 Height 5 ft 4 in Weight 132 lb BMI 22.7 BP 126/62 Blood Pressure Location Lt brachial Position Sitting Pulse 75 Pulse Source Pulse Oximeter Pulse Oximetry (%) 97 Oxygen Delivery Method Room Air Intake Visit Reasons: vomiting, dizziness, pale, acid reflux Allergies lactose (LACTOSE) Allergy (Intermediate, Verified 03/27/25 09:52) DIARRHEA amlodipine Allergy (Unknown, Verified 03/27/25 09:52) Unknown famotidine Allergy (Unknown, Verified 03/27/25 09:52) Unknown metoprolol Allergy (Unknown, Verified 03/27/25 09:52) Unknown metformin Adverse Reaction (Intermediate, Verified 03/27/25 09:52) Diarrhea Medication List - Last Reconciled 03/27/25 by Chemo Ortiz MD aspirin 81 mg PO DAILY atorvastatin 80 mg PO DAILY [Diabetic Shoes Please provide 1 pair of shoes with x3 inserts QD; Please provide diabetic shoes (1 pair with inserts x3)] diclofenac sodium 1% (Arthritis Pain (diclofenac)) 4 grams topical QID gabapentin 100 mg PO BEDTIME glycopyrrolate-formoterol 9-4.8 mcg (Bevespi Aerosphere) 2 puffs inhalation Q12H 30 days lisinopril 40 mg PO DAILY polyethylene glycol 3350 (Miralax) 17 grams PO DAILY Ventolin HFA 90 mcg/actuation (albuterol sulfate) 1 inh inhalation QID PRN 30 days NS Tobacco use date assessed: 03/19/25 Fall risk assessment: No Falls in past year Last assessed Fall Risk: 03/27/25 Dental Screening Dental Screen Date: 03/19/25 HPI vomiting, dizziness, pale, acid reflux HPI Details PAtient was recently started on metformin and losartan and became nauseas and so advised to stop metformin and losartan . from the patient has been taking lisinopril also so advise to stop PFSH Medical History (Updated 03/19/25 @ 14:01 by Chemo Ortiz MD) Impaired fasting glucose Annual physical exam Onychomycosis Pain in both feet Nail dystrophy Diabetic peripheral neuropathy Chronic cough Colon cancer screening Dysphagia Right groin pain Subdural bleeding Compression fracture of T4 vertebra H. pylori duodenitis BPH (benign prostatic hyperplasia) Hypertension Anxiety and depression Post herpetic neuralgia CPA (cerebellopontine angle) tumor Trigeminal neuralgia Peripheral vascular disease GERD (gastroesophageal reflux disease) Ascending aorta dilatation Hypercholesterolemia Coronary artery disease Surgical History History of ankle surgery H/O hernia repair Hx laparoscopic cholecystectomy History of esophagogastroduodenoscopy (EGD) H/O colonoscopy History of coronary artery stent placement Family History Father No problems noted. Mother No problems noted. Brother No problems noted. Sister No problems noted. Son No problems noted. Daughter No problems noted. Social History Housing: Apartment Are you a primary urgent care to a significant other at home: No Do you presently have visiting nurse or other home services: No Alcohol intake: former Year quit: 2019 Patient Tobacco Use Status: Former Tobacco user Tobacco use type: Cigarette Cigarettes Per Day: 6 Years Smoked: started age 27, 0.5 PPD, quit 2023 Packs per year/per ci.00 e-Cigarette/Vaping Use: Never Used Second Hand Smoke Exposure: No service: No Current occupational status: retired Cognitive needs: No Hearing needs: No Vision needs: Yes Questionnaire Thrive Questionnaire Date Thrive assessed: 12/11/24 I am a: Patient What is your living situation today?: I have a steady place to live Within the past 12 months, did the food you bought not last and you didn't have the money to get more?: Never true Within the past 12 months, did you worry whether your food would run out before you got money to buy more?: Never true Do you have trouble paying for medicines?: No Do you have trouble getting transportation to medical appointments?: No Do you have trouble paying your heating and electricity bill?: No Do you have trouble taking care of your child, family member or friend?: No Do you have trouble with day-to-day activities such as bathing, preparing meals, shopping, managing finances, etc.?: No Are you currently unemployed and looking for a job?: No Are you interested in more education?: No Please select the resources that you would like help with: None Currently or been in a relationship where the following occur: No concerns reported THRIVE Score: 0 LEMUEL-7 AMB Questionnaire LEMUEL-7 Date LEMUEL - 7 assessed: 12/23/24 Source: Developed by Drs. Dante Lambert, Gypsy Eugene, Jg Weber and colleagues, with an educational rut from [employer]. Physical exam (Primary Care) Vital Signs: Last Vital Signs Pulse 75 03/27/25 09:51 BP 126/62 03/27/25 09:51 Pulse Ox 97 03/27/25 09:51 Oxygen Delivery Method Room Air 03/27/25 09:51 BMI result Body Mass Index 22.7 Tobacco/Smoking Status: Tobacco use Status Tobacco use date assessed 03/19/25 03/27/25 09:54 Patient Tobacco Use Status Former Tobacco user 03/27/25 09:54 Tobacco use type Cigarette 03/27/25 09:54 e-Cigarette/Vaping Use Never Used 03/27/25 09:54 Thrive Assessment: Date of Thrive Assessment Date Thrive assessed 12/11/24 03/27/25 09:54 Currently or been in a relationship where the following occur: No concerns reported Const General: alert; No acute distress Eyes Conjunctivae: conjunctivae normal Resp Auscultation: clear to auscultation bilaterally Cardio Rate: regular rate Rhythm: regular rhythm GI Inspection: Yes normal to inspection Extrem General: Yes normal to inspection and No edema Coding Level of Care Code Est Pt Level 4 (34049) Complex EM visit Add On G2211 Diagnoses Type 2 diabetes mellitus with hyperglycemia E11.65 Coronary artery disease involving [place] coronary artery of [place] heart without angina pectoris I25.10 Associated angina: without angina Coronary Disease-Associated Artery/Lesion type: [place] artery [place] vs. 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 Escamilla Code(s): E11.65 - Type 2 diabetes mellitus with hyperglycemia Category: Medical Plan: Decrease the amount of carbohydrate intake, pasta, bread, rice and potatoes are all sugar and that is aside from all the sweet stuff, remember that fruits are good but they are Sweet also. Hemoglobin A1c goal of less than 7.0. Diet controlled. Advised to stop metformin, did feels nausea . will stop (2) Coronary artery disease: Comment: NSTEMI with drug-eluting stent February 2016 Code(s): I25.10 - Atherosclerotic heart disease of [place] coronary artery without angina pectoris Category: Medical Qualifiers: Associated angina: without angina Coronary Disease-Associated Artery/Lesion type: [place] artery [place] vs. transplanted heart: [place] heart Qualified Code(s): I25.10 - Atherosclerotic heart disease of [place] coronary artery without angina pectoris Plan: Control the cholesterol, weight, blood pressure, diabetes on aspirin (3) Hypertension: Code(s): I10 - Essential (primary) hypertension Category: Medical Qualifiers: Hypertension type: essential hypertension Qualified Code(s): I10 - Essential (primary) hypertension Plan: Continue with blood pressure medication. Decrease salt intake and exercise blood pressure has been under control without medication. Noted confusion , has lisinopril and took losartan also - advised to stop losartan (4) Hypercholesterolemia: Code(s): E78.00 - Pure hypercholesterolemia, unspecified Category: Medical Plan: Avoid fried foods, chicken skin, eggs, butter margarine, pastries and meat. Be it pork or beef they have a lot of cholesterol LDL goal of less than 70 and triglyceride of less than 150 on atorvastatin 80 mg once a day (5) Generalized anxiety disorder: Comment: Declined counseling referral Code(s): F41.1 - Generalized anxiety disorder Category: Medical Plan: Stable (6) GERD (gastroesophageal reflux disease): Code(s): K21.9 - Gastro-esophageal reflux disease without esophagitis Category: Medical Plan: Avoid the foods that causes that usually spicy foods, tomato products, juices, coffee, soda and foods that your sensitive to. After eating do not lie down, allow 3-4 hours before in lie down. And keep the head of bed above 30 degrees to avoid the acid from going up. (7) CPA (cerebellopontine angle) tumor: Comment: October 2017, March 2019, 04/2023 No acute intracranial abnormalities. 2. Mild underlying microangiopathy and generalized cerebral volume loss. 3. A mass along the right cerebellopontine angle suggestive of an underlying schwannoma have mildly decreased in size compared to exam from 2020. 4. No additional abnormal intracranial enhancement. 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 He has a history of coronary artery disease, hypercholesterolemia, gastroesophageal reflux disease, hypertension, and a CPE tumor. He also reports excessive salivation and has been diagnosed with generalized anxiety disorder and chronic obstructive pulmonary disease. The patient has diabetes mellitus, with the last hemoglobin A1c recorded at 6.3%. His diabetes is currently diet-controlled with a goal of maintaining hemoglobin A1c below 7.0%. He is a former smoker, having quit in March, and has undergone a pulmonary function test around March 26, though the results are unclear. The patient is up to date with his eye exams and is being monitored for glaucoma. His last blood work on December 12 showed normal blood count, electrolytes, and renal function, but mildly elevated liver function tests with an AST of 40. His LDL cholesterol was recorded at 61 mg/dL. Health Maintenance - Eye exam up to date - Monitoring for glaucoma Social History - Former smoker, quit in March Review of Systems - Gastrointestinal: Reports excessive salivation Physical Exam Results - Labs: Hemoglobin A1c 6.3%, LDL cholesterol 61 mg/dL, AST 40 - Tests: Pulmonary function test conducted on March 26 (results unclear) Plan Patient was informed and verbally consented to the use of an ambient scribe for clinic note documentation during this visit. 1. Diabetes Mellitus The patient's diabetes mellitus is currently managed with diet control, aiming for a hemoglobin A1c goal of less than 7.0%. 2. Coronary Artery Disease The patient is on aspirin therapy as part of the management plan for coronary artery disease. 3. Hypercholesterolemia The patient is on atorvastatin 80 mg once daily, with an LDL goal of less than 70 mg/dL and triglycerides less than 150 mg/dL. 4. Hypertension The patient's blood pressure is under control without medication. 5. Gastroesophageal Reflux Disease (Gerd) The plan is to continue monitoring the patient's gastroesophageal reflux disease. Discussion Notes Patient Instructions Medications: New ondansetron 4 mg PO Q8H PRN 20 tabs 2RF nausea and vomiting Refilled lisinopril 40 mg PO DAILY 90 tabs 2RF
[2025-03-27 09:51] VITALS: BP 126/62; PULSE 75; O2SAT 97; BMI 22.7
== END 2025-03-27 12:32 | disposition home or self-care (01) ==
LOC: HO.HMCH 09:41
PROVIDERS: PCP Internal Medicine; Visit Provider Internal Medicine
DX: E11.65 Type 2 diabetes mellitus with hyperglycemia (principal); D33.3 Benign neoplasm of cranial nerves; I25.10 Atherosclerotic heart disease of native coronary artery without angina pectoris; I10 Essential (primary) hypertension; E78.00 Pure hypercholesterolemia, unspecified; F41.1 Generalized anxiety disorder; K21.9 Gastro-esophageal reflux disease without esophagitis

== ENCOUNTER → 2025-03-27 09:40 | Outpatient (BNVA) | payer OTHER, SELFPAY | PROVIDERS: PCP Internal Medicine; Visit Provider Internal Medicine | DX: E11.65 Type 2 diabetes mellitus with hyperglycemia (principal); I10 Essential (primary) hypertension; E78.00 Pure hypercholesterolemia, unspecified; F41.1 Generalized anxiety disorder; K21.9 Gastro-esophageal reflux disease without esophagitis; D33.3 Benign neoplasm of cranial nerves; I25.10 Atherosclerotic heart disease of native coronary artery without angina pectoris; Z87.891 Personal history of nicotine dependence | CPT/HCPCS: 99212 ==